=== PATIENT | female | born 1985 | race Caucasian/White ===

== ENCOUNTER 2020-11-13 11:32 | Emergency (ER) | payer MEDICAID, SELFPAY ==
[2020-11-13 11:38] VITALS: BP 140/81; PULSE 108; RESP 18; TEMP 36.6; O2SAT 100; BMI 21.4
--- NOTE | 2020-11-13 11:46 | ED.EXTPRO ---
HPI - Extremity Problem General Chief complaint: Extremity Injury, Upper Stated complaint: swollen lt hand Time Seen by Provider: 11/13/20 11:46 History of Present Illness HPI Narrative: Patient complains of left hand pain and swelling worsening over the past 2 days after puncturing it on a nail head 2 days ago, denies fever chills dizziness Related Data Allergies Allergy/AdvReac Type Severity Reaction Status Date / Time No Known Allergies Allergy Verified 11/13/20 12:51 Review of Systems Review of Systems: Positive for left hand swelling and pain and redness Negatives are no dizziness no confusion no fever no chills no nausea no vomiting no cough no shortness of breath no numbness no weakness [facility] Past Medical History Attestation statement: The following information was validated with the patient. [facility] Narrative: Patient has no current medical problems, does have a history of IV drug abuse in the past but is not using any drugs now Social History Social History Advance Directives: No Advance Directives Information Provided: No Physical Exam Vital Signs: Vital Signs: Last Vital Signs Temp 98.3 F 11/13/20 14:38 Pulse 79 11/13/20 14:38 Resp 16 11/13/20 14:38 BP 134/91 H 11/13/20 14:38 Pulse Ox 98 11/13/20 14:38 Body Mass Index 21.4 Patient is A&O x3, no acute distress, uncomfortable from pain in the left hand Normocephalic atraumatic Neck is supple Respiratory no distress Extremities the left hand the palm has a puncture wound at the center is is swollen across the mid palm with tenderness and induration and redness which spreads above the volar surface of the wrist and 2 the 2nd through 4th fingers, the patient cannot extend fingers 2 3 and 4, there is tenderness across the tendon sheath of 3rd and 4th fingers, fingers to 3 and 4 are red and swollen, neurovascular intact, no lymphangitis, wrist has full range of motion Neuro no focal deficit Course Course Course Narrative: Case discussed with attending physician Dr. prabhakar who agreed deep infection possibly abscess below aponeurosis, possible tenosynovitis We did not have a hand surgeon available at [facility] so I called [facility] and spoke to hand surgeon advised send patient as a transfer to the emergency room where they will evaluate and contact whoever is on-call for Hand Patient agreed to the plan and understands the urgency and understands she should not eat anything as she may be going to surgery and her mother will bring her over to [facility] now ATTEMPT TO PLACE AN IV IN RIGHT ARM WAS NOT SUCCESSFUL SPOKE WITH HAND DOCTOR ABOUT POSSIBILITY OF INSERTING INTO THE LEFT ARM AND SHE SAID PATIENT IS BEING TRANSFERRED TO [facility] LET THEM RE-EVALUATE AND HOLD OFF ON IV PLACEMENT SO NO IV WAS PLACED MDM - Extremity (Nontraumatic) Lab Data Result diagrams: 11/13/20 14:05 11/13/20 14:05 Labs: Lab Results 11/13/20 11/13/20 11/13/20 Range/Units 14:05 14:05 14:05 WBC 16.5 H (4.8-10.8) X10*3/uL RBC 5.04 (4.20-5.50) X10*6/uL Hgb 14.1 (12.0-16.0) g/dl Hct 42.1 (37-47) % MCV 83.5 (80-98) fL MCH 28.0 (27.0-33.0) pg MCHC 33.5 (31.0-35.0) g/dl RDW 13.7 (11.0-16.0) % Plt Count 383 (160-400) X10*3/uL MPV 9.7 (9.4-12.3) fL Immature Gran % (Auto) 0.4 (0.0-0.4) % Neut % (Auto) 82.7 H (45-73) % Lymph % (Auto) 10.0 L (20-40) % Rosebud % (Auto) 6.4 (2-11) % Eos % (Auto) 0.3 (0-4) % Baso % (Auto) 0.2 (0-2) % Lymph # (Auto) 1.6 (1.2-4.9) X10*3/uL Rosebud # (Auto) 1.1 (0.1-1.2) X10*3/uL Eos # (Auto) 0.1 (0.0-0.4) X10*3/uL Baso # (Auto) 0.0 (0.0-0.2) X10*3/uL Abs Immat Gran (auto) 0.06 H (0.00-0.03) X10*3/uL Absolute Neuts (auto) 13.6 H (2.0-8.3) X10*3/uL Absolute Nucleated RBC 0.000 (0.0-0.012) X10*3/uL Nucleated RBC % (auto) 0.0 (0.0-0.2) /100WBC Sodium 136 (135-145) mmol/L Potassium 3.8 (3.3-5.1) mmol/l Chloride 101 (96-108) mmol/L Carbon Dioxide 26 (22-29) mmol/L Anion Gap 13 (12-20) BUN 18 H (9-16) mg/dL Creatinine 0.96 (0.5-1.4) mg/dL Estim Creat Clear Calc 70.0 Estimated GFR > 60 Random Glucose 113 (60-115) mg/dL Lactic Acid (0.5-2.0) mmol/L Calcium 8.9 (8.4-10.2) mg/dL COVID-19 (RENATO) Negative (Negative) COVID-19 Clin Com See Note 11/13/20 Range/Units 14:05 WBC (4.8-10.8) X10*3/uL RBC (4.20-5.50) X10*6/uL Hgb (12.0-16.0) g/dl Hct (37-47) % MCV (80-98) fL MCH (27.0-33.0) pg MCHC (31.0-35.0) g/dl RDW (11.0-16.0) % Plt Count (160-400) X10*3/uL MPV (9.4-12.3) fL Immature Gran % (Auto) (0.0-0.4) % Neut % (Auto) (45-73) % Lymph % (Auto) (20-40) % Rosebud % (Auto) (2-11) % Eos % (Auto) (0-4) % Baso % (Auto) (0-2) % Lymph # (Auto) (1.2-4.9) X10*3/uL Rosebud # (Auto) (0.1-1.2) X10*3/uL Eos # (Auto) (0.0-0.4) X10*3/uL Baso # (Auto) (0.0-0.2) X10*3/uL Abs Immat Gran (auto) (0.00-0.03) X10*3/uL Absolute Neuts (auto) (2.0-8.3) X10*3/uL Absolute Nucleated RBC (0.0-0.012) X10*3/uL Nucleated RBC % (auto) (0.0-0.2) /100WBC Sodium (135-145) mmol/L Potassium (3.3-5.1) mmol/l Chloride (96-108) mmol/L Carbon Dioxide (22-29) mmol/L Anion Gap (12-20) BUN (9-16) mg/dL Creatinine (0.5-1.4) mg/dL Estim Creat Clear Calc Estimated GFR Random Glucose (60-115) mg/dL Lactic Acid 1.0 (0.5-2.0) mmol/L Calcium (8.4-10.2) mg/dL COVID-19 (RENATO) (Negative) COVID-19 Clin Com Discharge Plan Discharge Clinical Impression: Tenosynovitis of left hand Patient Disposition: [facility] Additional Instructions: YOUR ACCEPTED A TRANSFER TO [facility] EMERGENCY ROOM YOU MAY NEED SURGERY TODAY FOR YOUR LEFT HAND INFECTION SO DO NOT EAT ANY FOOD OR ANYTHING BY MOUTH THE TRANSFER WAS ACCEPTED BY HAND SURGEON YOU GOT A TETANUS SHOT HERE, NO ANTIBIOTICS WERE ADMINISTERED GO TO [facility] IMMEDIATELY WHEN YOU LEAVE THIS [facility]
--- NOTE | 2020-11-13 12:27 | PC.NURSE ---
IRA CORDOVA AND DR RIVERA AT BEDSIDE FOR EXAM
--- NOTE | 2020-11-13 12:51 | XR_ITS ---
EXAMINATION: XR HAND, LEFT CLINICAL INFORMATION: Infection. Possible foreign body COMPARISON: None TECHNIQUE: PA, lateral, and oblique views of the left hand. FINDINGS: The second through fifth fingers are partially flexed on all 3 views and partially overlapped lateral view. There is no visible fracture or dislocation or destructive process. No periostitis. There is mild soft tissue swelling suggested and dorsum of hand. No gas tracking in the soft tissues. No visible radiopaque soft tissue foreign body. XR/XR hand LT min 3V IMPRESSION: 1. Mild dorsal soft tissue swelling. No visible radiopaque soft tissue foreign body or gas tracking in soft tissue planes. 2. No visible fracture, dislocation, destructive process.
--- NOTE | 2020-11-13 13:56 | PC.NURSE ---
THIS RN UNSUCCESSFUL WITH IV INSERTION ATTEMPT X 1 RT VJ BA, RISK ASSESSOR AT BEDSIDE WITH US ALSO UNSUCCESSFUL, IRA CORDOVA UPDATED, IV TO BE HELD UNTIL FURTHER NOTICE,
[2020-11-13 14:15] LABS: Basophils Percent Auto 0.2 % (0-2); Eosinophils Absolute Auto 0.1 X10*3/uL (0.0-0.4); Eosinophils Percent Auto 0.3 % (0-4); Hematocrit 42.1 % (37-47); Hemoglobin 14.1 g/dl (12.0-16.0); Imm Gran Abs Auto 0.06 X10*3/uL (0.00-0.03); Imm Gran Pct Auto 0.4 % (0.0-0.4); Lymphocytes Absolute Auto 1.6 X10*3/uL (1.2-4.9); MANUAL DIFF FLAG NO; Mean Corpuscular HGB Conc 33.5 g/dl (31.0-35.0); Mean Corpuscular Volume 83.5 fL (80-98); Mean Platelet Volume 9.7 fL (9.4-12.3); Monocytes Absolute Auto 1.1 X10*3/uL (0.1-1.2); Monocytes Percent Auto 6.4 % (2-11); Neutrophils Absolute Auto 13.6 X10*3/uL (2.0-8.3); Neutrophils Percent Auto 82.7 % (45-73); Platelet Count 383 X10*3/uL (160-400); Red Blood Count 5.04 X10*6/uL (4.20-5.50); Red Cell Distribution Width 13.7 % (11.0-16.0); White Blood Count 16.5 X10*3/uL (4.8-10.8)
[2020-11-13] MEDS: Morphine Sulfate 4 MG/ML CARTRIDGE IM (14:16)
--- NOTE | 2020-11-13 14:19 | PC.NURSE ---
morphine given im as no iv access at preent time, antibiotics to be held for now, awaiting return call from [facility]
[2020-11-13 14:31] LABS: COVID-19 Test Negative (Negative); IDNOW Serial# 9DD0AD1C
[2020-11-13 14:34] LABS: Anion Gap 13 (12-20); Blood Urea Nitrogen 18 mg/dL (9-16); Calcium 8.9 mg/dL (8.4-10.2); Carbon Dioxide 26 mmol/L (22-29); Chloride 101 mmol/L (96-108); Estimated Glomerular Filt Rate > 60; Glucose Random 113 mg/dL (60-115); Potassium 3.8 mmol/l (3.3-5.1); Sodium 136 mmol/L (135-145)
[2020-11-13 14:38] VITALS: BP 134/91; PULSE 79; RESP 16; TEMP 36.8; O2SAT 98
== END 2020-11-13 14:50 | disposition short-term general hospital (02) ==
PROVIDERS: Physician Assistant Medical; Emergency Provider Emergency Medicine Emergency Medical Services; PCP Internal Medicine Geriatric Medicine
DX: M65.842 Other synovitis and tenosynovitis, left hand (principal); M79.642 Pain in left hand; Z20.828 Contact with and (suspected) exposure to other viral communicable diseases; F19.10 Other psychoactive substance abuse, uncomplicated
CPT/HCPCS: 36415; 73130; 80048; 83605; 85025; 87040; 87071; 87147; 87635; 87880; 90471; 90715; 96372; 99285; J2270

== ENCOUNTER 2021-04-03 19:21 | Emergency (ER) | payer OTHER, SELFPAY ==
[2021-04-03 20:33] VITALS: BP 144/87; PULSE 98; RESP 16; TEMP 35.9; O2SAT 99; BMI 22.3
--- NOTE | 2021-04-03 21:10 | ED.SKABFB ---
HPI - Skin/Abscess/Foreign Bdy General Chief complaint: Skin/Abscess/Foreign Body Stated complaint: Unable to move left hand Time Seen by Provider: 04/03/21 20:59 Source: patient Mode of arrival: ambulatory Limitations: no limitations History of Present Illness HPI narrative: Patient comes emergency room complaining of bedbugs versus scabies. Patient states that she has been treated for both, she is currently staying at a [facility] [address], states she was initially doing well and then 2 days ago she started having a rash again. Patient states is very itchy, she has been picking at her skin, states that through lesions she has is a small white worms. Patient denies fever and chills. Patient also complaining of numbness and tingling in the left wrist, states that it feels weaker than usual. Patient states she slept in a chair, when she woke up it was already numb and tingly and weak. MD complaint: rash Related Data Previous Rx's Medication Instructions Recorded permethrin [Lice Killing 60 ml TOPICAL ONCE #240 ml 04/03/21 (permethrin)] prednisone 20 mg PO DAILY #5 tab 04/03/21 Allergies Allergy/AdvReac Type Severity Reaction Status Date / Time No Known Allergies Allergy Verified 04/03/21 20:33 Review of Systems Review of Systems: Constitutional : No Weight loss, No Fever, No Chills, No Night Sweats, No Fatigue, No Malaise ENT/Mouth : No Hearing loss, No Ear Pain, No Nasal Congestion, No Sinus Pain, No Hoarseness, No sore throat, No Rhinorrhea, No Swallowing Difficulty Eyes: No Eye Pain, No Swelling, No Redness, No Foreign Body, No Discharge, No Vision Changes Cardiovascular : No Chest Pain, No SOB, No Dyspnea on Exertion, No Orthopnea, No Edema, No Palpitations Respiratory : No Cough, No Sputum, No Wheezing, No Smoke Exposure, No Dyspnea Gastrointestinal : No Nausea, No Vomiting, No Diarrhea, No Constipation, No abdominal Pain, No Hematochezia, No Melena Genitourinary : no irregular bleeding, No Dysuria, No Urinary Frequency, No Hematuria, No Urinary Incontinence, No Urgency, No Flank Pain, No Urinary Flow Changes, No Hesitancy Musculoskeletal : No joint pain, No Myalgias, No Joint Swelling Skin : Scabies like and bedbugs like rash in other body Neuro : Complaining of numbness in the left wrist, no pain, No Numbness, No Paresthesias, No Loss of Consciousness, No Dizziness, No Headache Psych : No Anxiety/Panic, No Depression, No SI/HI/AH/VH, No Social Issues, Heme/Lymph: No Bruising, No Bleeding,No Lymphadenopathy Endocrine : No Polyuria, No Polydipsia, No Temperature Intolerance PMFSH Past Medical History Medical History Scabies Social History Social History Advance Directives: No Advance Directives Information Provided: No Patient : No Physical Exam Vital Signs: Vital Signs: Last Vital Signs Temp 96.7 F L 04/03/21 20:33 Pulse 98 04/03/21 20:33 Resp 16 04/03/21 20:33 BP 144/87 H 04/03/21 20:33 Pulse Ox 99 04/03/21 20:33 Body Mass Index 22.3 Appearance: Alert. Oriented X3. No acute distress. Eyes: Pupils equal, round and reactive to light. ENT: Pharynx normal. Neck: Normal inspection. Neck supple. No lymph nodes noted. No crepitus CVS: Normal heart rate and rhythm. Pulses normal. Normal S1 and S2 Respiratory: No respiratory distress. Breath sounds normal. No Wheezing. No rales Abdomen: Soft and nontender. No rigidity. No distention. good BS x4 Skin: Skin warm and dry. It seems that patient has both bedbugs and scabies. Patient has multiple bedbug bites throughout the abdomen, patient also has scabies track jimenez in the dorsum of her hands. Extremities: No lower extremity edema. Patient is able to flex and extend all fingers of the left hand, including the wrist but seems to be weaker. Patient has no deficits at the elbow. On the left hand, patient has scarring tissue in the palm secondary to was surgery done in October 2020 due to tenosynovitis. Neuro: Oriented X 3. No motor deficit. No sensory deficit. Moving all extermities. No slurred speech. Course Course Course Narrative: I discussed the physical exam with the patient, it is likely the patient has doubled scabies and bedbugs. Patient mentioned that she was given prednisone for the 1st time that she was treated and it helped her a lot. Also, I discussed the physical exam of the left wrist, likely this is secondary to radial nerve compression. Patient will be given a brace for the wrist, and will follow up with her primary care physician. At this time, cellulitis/abscesses/tenosynovitis not suspected. Discharge Plan Discharge Clinical Impression: Scabies, Acute radial nerve palsy of left upper extremity Bedbug bite Qualifiers: Encounter type: initial encounter Qualified Code(s): W57.XXXA - Bitten or stung by nonvenomous insect and other nonvenomous arthropods, initial encounter Patient Disposition: Home, Self-Care Additional Instructions: Please follow-up with your primary care physician tomorrow. If you have any worsening or new symptoms, please return to the emergency room or call 911 Prescriptions: New Lice Killing (permethrin) 1 % liquid 60 ml topical ONCE Qty: 240 RF: 1 prednisone 20 mg tablet 20 mg PO DAILY Qty: 5 RF: 0
== END 2021-04-03 22:06 | disposition home or self-care (01) ==
PROVIDERS: Emergency Provider Emergency Medicine
DX: B86 Scabies (principal); G56.32 Lesion of radial nerve, left upper limb; Z79.899 Other long term (current) drug therapy
CPT/HCPCS: 99284

== ENCOUNTER 2021-05-05 17:09 | Emergency (ER) | payer OTHER, SELFPAY ==
[2021-05-05 17:22] VITALS: BP 124/81; PULSE 88; RESP 16; TEMP 36.9; O2SAT 100; BMI 22.1
--- NOTE | 2021-05-05 17:36 | ED.GENADULT ---
HPI - General Adult General Chief complaint: Altered Mental Status Stated complaint: ASLEEP IN CAR, FOUND BY PD Time Seen by Provider: 05/05/21 17:26 Source: patient and EMS Mode of arrival: EMS Limitations: no limitations History of Present Illness HPI narrative: Patient was found sleeping in her car by a bystander. EMS and PD were called on scene and were able to open the door and wake the patient up. Per report there was drug paraphernalia found in the car. The patient denies any substance use. On arrival she is alert and oriented. No physical complaints. Related Data Previous Rx's Medication Instructions Recorded permethrin [Lice Killing 60 ml TOPICAL ONCE #240 ml 04/03/21 (permethrin)] prednisone 20 mg PO DAILY #5 tab 04/03/21 Allergies Allergy/AdvReac Type Severity Reaction Status Date / Time No Known Allergies Allergy Verified 04/03/21 20:33 Review of Systems Review of Systems: Yes all other systems are reviewed and are negative Constitutional: Constitutional: Reports no additional constitutional complaints, Denies body ache(s), Denies chills, Denies fever(s), Denies headache(s) and Denies weakness Eyes: Eyes: Reports no additional eye complaints and Denies change in vision ENT: Reports system reviewed and no additional complaints, except as documented, Denies dizziness, Denies headache(s), Denies nasal congestion, Denies nasal discharge and Denies neck pain Cardiovascular: Cardiovascular: Reports no additional cardiovascular complaints, Denies chest pain, Denies leg edema and Denies dyspnea Respiratory: Respiratory: Reports no additional respiratory complaints, Denies cough and Denies dyspnea Gastrointestinal: Gastrointestinal: Reports no additional gastrointestinal complaints, Denies abdominal pain, Denies diarrhea, Denies nausea and Denies vomiting Genitourinary: Genitourinary: Reports no additional female genitourinary complaints and Denies urinary incontinence Musculoskeletal: Musculoskeletal: Reports no additional musculoskeletal complaints, Denies back pain, Denies arthralgias, Denies joint swelling, Denies neck pain, Denies numbness and Denies tingling Integumentary/Breasts: Skin/Breast: Reports system reviewed and no additional complaints, except as docu and Denies rash Neurologic: Reports system reviewed and no additional complaints, except as documented, Denies Abnormal speech present, Denies dizziness, Denies headache(s), Denies numbness, Denies tingling and Denies weakness PMFSH Past Medical History Attestation statement: The following information was validated with the patient. Source: old records reviewed and nursing notes reviewed Medical History Scabies Social History Social History Advance Directives: No Advance Directives Information Provided: No Physical Exam Vital Signs: Vital Signs: Last Vital Signs Temp 98.5 F 05/05/21 17:22 Pulse 88 05/05/21 17:22 Resp 16 05/05/21 17:22 BP 124/81 05/05/21 17:22 Pulse Ox 100 05/05/21 17:22 Body Mass Index 22.1 Const: General: cooperative, healthy appearing, comfortable and no acute distress Orientation/consciousness: patient oriented x3 Limitations: no limitations HENMT: Head: Yes normal to inspection Ears: hearing grossly normal bilaterally General nose exam: Normal external nose present Face and sinus: Yes normal facial exam Mouth: Normal oral and palatal mucosa present Throat: Yes posterior oropharynx normal Eyes: General: appearance normal, both eyes and all related structures Pupils: Equal, round and reactive pupils present Neck: Neck: Yes normal visual inspection Chest: Chest palpation & inspection: normal inspection of the chest Resp: Effort & Inspection: normal respiratory effort Auscultation: clear to auscultation bilaterally Cardio: Rate: regular rate Rhythm: regular rhythm Peripheral pulses: Peripheral pulses 2+ throughout GI: Inspection: Yes normal to inspection Palpation (GI): Soft to palpation and nontender Auscultation: normal bowel sounds Back/Spine/Pelvis: Thoracic/Lumbar Spine: thoracic and lumbar spine normal to inspection Skin: General skin exam: no rashes or lesions noted Neuro: General: patient oriented x3, no focal motor deficits and normal sensation to monofilament Cranial nerves: Yes Equal, round and reactive pupils present Cognition (Neuro): normal cognition Speech: No Abnormal speech present Gait exam (Neuro): Normal gait present Motor exam (neuro): 5/5 motor strength present throughout Extrem: General: Yes normal to inspection Course Course Course Narrative: 35-year-old female here after being found in the car sleeping. Found with drug paraphernalia although the patient denies using. On arrival she is alert and oriented. Hemodynamically stable. She has a sober ride here to pick her up. She has no physical complaints. No HI or SI. Not interested in any detox resources. Reviewed worrisome signs and symptoms of when to return to the emergency department. Comfortable discharge home. Discharge Plan Discharge Clinical Impression: Encounter for medical screening examination Patient Disposition: Home, Self-Care Instructions: Normal Exam (ED) Prescriptions: No Action Lice Killing (permethrin) 1 % liquid 60 ml topical ONCE Qty: 240 RF: 1 prednisone 20 mg tablet 20 mg PO DAILY Qty: 5 RF: 0 Interventions: ED Discharge Assessment Last Done: 05/05/21 17:44 Discharge Date/Time: 05/05/21 17:44
== END 2021-05-05 17:44 | disposition home or self-care (01) ==
LOC: HO.ED 17:40
PROVIDERS: Emergency Provider Internal Medicine; PCP Internal Medicine Geriatric Medicine
DX: Z03.6 Encounter for observation for suspected toxic effect from ingested substance ruled out (principal)
CPT/HCPCS: 99282; 99283

== ENCOUNTER 2022-06-09 23:12 | Emergency (ER) | payer OTHER, SELFPAY ==
[2022-06-09 23:46] VITALS: BP 109/57; PULSE 86; RESP 18; TEMP 36.3; O2SAT 97; BMI 24.0
--- NOTE | 2022-06-10 01:26 | ED_ITS ---
HPI - Skin/Abscess/Foreign Bdy General Chief complaint: Skin/Abscess/Foreign Body Stated complaint: infection on right hand Source: patient Mode of arrival: ambulatory Limitations: no limitations History of Present Illness HPI narrative: 36-year-old female presents with worsening cellulitis and abscess to the left hand. She was treated at another facility and was given Bactrim. Patient states that she has been on Bactrim for a few days but it is not working. She feels the redness has increased, and the wound is open and actively draining. She does not report any fevers, chills, difficulty moving the extremity. MD complaint: abscess/boil Onset (ago): week(s) (2) Tetanus up to date: yes Location: R hand Severity: moderate Severity scale (1-10): 5 Quality: burning and aching Pain Consistency: constant Relieving factors: none Exacerbating factors: palpation and movement Context: recent antibiotic Associated symptoms: denies other symptoms Treatments prior to arrival: bandages, attempted to drain pus at home and antibiotic Related Data Previous Rx's Medication Instructions Recorded permethrin 1 % topical liquid 60 ml topical ONCE #240 mL 04/03/21 (Lice Killing (permethrin)) prednisone 20 mg tablet 20 mg PO DAILY #5 tabs 04/03/21 amoxicillin 875 mg-potassium 1 tab PO Q12H 10 days #20 tabs 06/10/22 clavulanate 125 mg tablet doxycycline monohydrate 100 mg 100 mg PO BID 10 days #20 caps 06/10/22 capsule Allergies Allergy/AdvReac Type Severity Reaction Status Date / Time No Known Allergies Allergy Verified 12/14/21 15:29 Review of Systems Review of Systems: Constitutional: No Fever, No Chills ENT/Mouth: No Ear Pain, No Hoarseness, No sore throat Eyes: No Eye Pain, No Swelling, No Redness, No Foreign Body Cardiovascular: No Chest Pain, No SOB Respiratory: No Cough, No Dyspnea Gastrointestinal: No Nausea, No Vomiting, No Diarrhea, No abdominal Pain Genitourinary: No Dysuria, No Hematuria Musculoskeletal: positive right hand pain, No Myalgias, No Joint Swelling Skin: Cellulitis and draining abscess to right hand, No Skin lacerations, No rash Neuro: No Weakness, No Numbness, No Paresthesias, No Loss of Consciousness, No Dizziness, No Headache Psych: No Anxiety/Panic, No Depression Heme/Lymph: no easy bruising, no Lymphadenopathy Endocrine: No Polyuria, No Polydipsia Yes all other systems are reviewed and are negative [facility] Past Medical History Attestation statement: The following information was validated with the patient. Source: old records reviewed Medical History Scabies Social History Social History Advance Directives: No Physical Exam Vital Signs: Vital Signs: Last Vital Signs Temp 97.9 F 06/10/22 01:29 Pulse 89 06/10/22 01:29 Resp 16 06/10/22 01:29 BP 112/69 06/10/22 01:29 Pulse Ox 99 06/10/22 01:29 O2 Del Method 06/10/22 01:29 BMI result Body Mass Index 24.0 Appearance: Alert. Oriented X3. No acute distress. Eyes: Pupils equal, round and reactive to light. ENT: Pharynx normal. Neck: Normal inspection. Neck supple. CVS: Normal heart rate and rhythm. Pulses normal. Respiratory: No respiratory distress. Breath sounds normal. Abdomen: Soft and nontender. Skin: Multiple scabs to arms and face, 2 cm in diameter abscess with erythema and cellulitis, draining pustule noted to the center. Full range of motion and strength 5/5 to all digits. No indication of tendon injury. The no cervical or brachial lymphadenopathy. Extremities: Brisk capillary refill and equal pulses to all extremities. Neuro: No motor deficit. No sensory deficit. Cranial nerves 2-12 intact. Course Course Course Narrative: 36-year-old female presents with worsening pain and increase of drainage to the abscess on her right hand. Patient was given Bactrim, she has been taking it but feels that this medication isn't working for her. She says the cellulitis on the hand has increased as well as the drainage. She has full range of motion, strength 5/5 to all digits, no indication of tendon injury. Full range of motion to the upper extremity. No cervical or axillary or brachial lymphadenopathy noted. Patient is afebrile, appears nontoxic. At this time will discontinue the Bactrim and start doxycycline and Augmentin. Patient does understand if signs and symptoms of infection worsened that she must return to the emergency department for immediate evaluation. Patient verbalized understanding of plan of care discharge home. Verbalized understanding of signs symptoms indicating need for emergent intervention. MDM - Skin/Abscess/Foreign Bdy Differential Diagnosis Differential diagnosis: Likely abscess of skin or subcutaneous tissue and cellulitis Medical Records Attestation: I reviewed the patient's medical records. Discharge Plan Discharge Clinical Impression: Cellulitis, Abscess of skin or subcutaneous tissue Patient Disposition: Home, Self-Care Instructions: Cellulitis (ED), Abscess (ED) Additional Instructions: Your evaluated for cellulitis and draining abscess to the right hand. Please stop taking Bactrim, take Augmentin 875 mg twice a day for the next 10 days and doxycycline 100 mg twice a day for the next 10 days. Doxycycline has a significant interaction with sunshine. Please wear hat, long sleeves and sunscreen to prevent photosensitive reaction from occurring. You can get a blister-like rash to your skin with sunshine exposure. Keep wound clean and dry. Apply warm compress to encourage drainage. If you notice any worsening signs of infection please return for evaluation. Return for any new, concerning, or worsening symptoms. Prescriptions: New doxycycline monohydrate 100 mg capsule 100 mg PO BID 10 Days Qty: 20 0RF amoxicillin-pot clavulanate 875-125 mg tablet 1 tab PO Q12H 10 Days Qty: 20 0RF No Action Lice Killing (permethrin) 1 % liquid 60 ml topical ONCE Qty: 240 1RF prednisone 20 mg tablet 20 mg PO DAILY Qty: 5 0RF Interventions: ED Discharge Assessment Last Done: 06/10/22 01:53 Discharge Date/Time: 06/10/22 03:20
[2022-06-10 01:29] VITALS: BP 112/69; PULSE 89; RESP 16; TEMP 36.6; O2SAT 99
[2022-06-10] MEDS: Amoxicillin/Potassium Clav 875 MG TABLET PO (01:34)
== END 2022-06-10 03:20 | disposition home or self-care (01) ==
PROVIDERS: Emergency Provider Emergency Medicine
DX: L03.114 Cellulitis of left upper limb (principal); L02.511 Cutaneous abscess of right hand
CPT/HCPCS: 99283; 99284

== ENCOUNTER 2022-10-29 17:24 | Emergency (ER) | payer OTHER, SELFPAY | END 2022-10-29 19:05 | disposition left against medical advice (07) | PROVIDERS: Emergency Provider Emergency Medicine; PCP Internal Medicine Geriatric Medicine | DX: M79.642 Pain in left hand (principal) ==

== ENCOUNTER 2023-08-22 02:20 | Inpatient (IN) | payer OTHER, SELFPAY ==
[2023-08-22] VITALS (16 sets, daily range): BP systolic 83–128; BP diastolic 45–84; PULSE 75–113; RESP 12–24; TEMP 36.3–38.2; O2SAT 92–99; BMI 26.3; BMI 28.6
--- NOTE | ~2023-08-22 | CT_ITS ---
EXAMINATION: CT LUMBAR SPINE CLINICAL INFORMATION: L4-L5 pain, fever, IVDA COMPARISON: None available. TECHNIQUE: 85 mL Omnipaque 350 intravenous contrast was utilized. Multidetector helical imaging was performed through the lumbar spine This CT examination was performed using dose optimization techniques as appropriate, variously including the following: *Automated exposure control *Adjustment of mA and/or kV according to patient size (this includes techniques or standardized protocols for targeted exams where dose is matched to indication/reason for exam; i.e. extremities or head) *Use of iterative reconstruction technique DLP: 451 mGy-cm FINDINGS: There is anatomic alignment of the lumbar vertebral bodies and posterior elements. Vertebral body heights and intervertebral disc spaces are maintained. No acute fracture is seen. No erosive changes to suggest osteomyelitis. No paravertebral soft tissue abnormality is seen. CT/CT lumbar spine w IV con IMPRESSION: No acute findings identified. If clinically warranted, MRI would provide better assessment for potential osteomyelitis.
--- NOTE | ~2023-08-22 | MR_ITS ---
EXAMINATION: MR LUMBAR SPINE WITHOUT AND WITH CONTRAST CLINICAL INFORMATION: Question spinal epidural abscess. COMPARISON: None TECHNIQUE: MRI of the lumbar spine was obtained using routine sequences without and with intravenous contrast. Gadavist was intravenously administered. FINDINGS: The lumbar vertebral bodies maintain normal heights and alignment. No disc height loss is seen. There is no bone marrow edema. No destructive changes are noted. The distal spinal cord appears normal. The conus medullaris terminates normally at L1. There is no abnormal enhancement within the bone marrow. No abnormal cauda equina nerve root enhancement is seen. There is no disc herniation. No spinal canal or neural foraminal stenosis is seen. No nerve root compression is seen. There is diffuse edema within the subcutaneous fat of the lower back with mild ill-defined paraspinal muscle edema also seen centered about the L4-L5 level. There is asymmetric enhancement about the right-sided L4-L5 facet joint with mildly increased fluid also seen within the L4-L5 facet joint space. The psoas musculature appears symmetric. The imaged intra-abdominal contents of intrapelvic contents are unremarkable. MR/MR lumbar spine wo/w con IMPRESSION: 1. No evidence of epidural abscess. No evidence of discitis osteomyelitis. No spinal canal or neural foraminal stenosis. No nerve root compression. 2. Diffuse edema within the subcutaneous fat of the lower back and mild ill-defined paraspinal muscle edema centered about the L4-L5 level. Mild increased fluid in the right-sided L4-L5 facet joint with edema and enhancement seen in this region. Imaging could be degenerative or posttraumatic changes. Septic facet arthritis would have a similar imaging appearance.
--- NOTE | ~2023-08-22 | XR_ITS ---
EXAMINATION: XR CHEST CLINICAL INFORMATION: Fever COMPARISON: None available. TECHNIQUE: Frontal view of the chest was obtained. FINDINGS: There is mild elevation of the right hemidiaphragm. There is hazy opacity in the right lung base. No focal left lung consolidation. No evidence of pneumothorax or significant pleural effusion. The cardiomediastinal contour is unremarkable. No acute osseous findings are seen. XR/XR chest 1V IMPRESSION: Hazy right basilar opacity concerning for developing consolidation in the setting of fever. Radiographic followup after treatment/resolution of symptoms is recommended.
[2023-08-22 03:08] LABS: COVID-19 Test Negative (Negative); IDNOW Serial# BCCEAD1C
--- NOTE | 2023-08-22 03:30 | PC.NURSE ---
Pt AOx4, pt reports 8/10 constant lower back/neck pain, an left hip pain. Reports fevers at home, reports not being able to get out of bed x5 days. Denies vomiting/diarrhea/cough/sick contact. Multiple healing scabs noted all over body, pt reports recent IV drug use.
[2023-08-22] MEDS: HYDROmorphone HCl 1 MG/ML SYRINGE IVPUSH (03:37)
[2023-08-22] MEDS: Ketorolac Tromethamine 15 MG/ML VIAL IVPUSH (03:39)
[2023-08-22] MEDS: 0.9 % Sodium Chloride 1,000 ML 999 ML IV ×3 (03:43→09:15)
[2023-08-22] MEDS: Acetaminophen 325 MG TABLET 650 MG PO ×2 (03:45→16:50)
--- NOTE | 2023-08-22 03:54 | PC.NURSE ---
Pt difficult stick, unsuccessful attempts at blood draw/IV insertions. Ultrasound guided IJ insertion unsuccessful by provider. IV inserted, lab work still pending collection.
--- NOTE | 2023-08-22 04:06 | MHC.EDTECH ---
This tech obtained the first set of blood cultures and labs, patient is an extremely difficult stick,phlebotomy is at bedside to attempt to get second set of blood cultures.
[2023-08-22 04:10] LABS: MANUAL DIFF FLAG NO
[2023-08-22] MEDS: cefTRIAXone sodium 2 GM in 0.9 % Sodium Chloride 50 ML IV (04:10)
--- NOTE | 2023-08-22 04:10 | PC.NURSE ---
2nd set of cultures obtained, ABX started.
[2023-08-22 04:11] LABS: Basophils Percent Auto 0.3 % (0-2); Eosinophils Percent Auto 0.2 % (0-4); Hematocrit 34.6 % (37.0-47.0); Hemoglobin 11.7 g/dl (12.0-16.0); Imm Gran Pct Auto 1.6 % (0.0-0.4); Lymphocytes Absolute Auto 0.5 X10*3/uL (1.2-4.9); Lymphocytes Percent Auto 8.7 % (20-40); Mean Corpuscular HGB Conc 33.8 g/dl (31.0-35.0); Mean Corpuscular Hemoglobin 28.3 pg (27.0-33.0); Mean Corpuscular Volume 83.6 fL (80.0-98.0); Mean Platelet Volume 10.5 fL (9.4-12.3); Monocytes Absolute Auto 0.6 X10*3/uL (0.1-1.2); Monocytes Percent Auto 9.3 % (2-11); Neutrophils Percent Auto 79.9 % (45-73); Platelet Count 167 X10*3/uL (160-400); Red Blood Count 4.14 X10*6/uL (4.20-5.50); Red Cell Distribution Width 12.6 % (11.0-16.0); White Blood Count 6.2 X10*3/uL (4.8-10.8)
--- NOTE | 2023-08-22 04:15 | PC.NURSE ---
IV line placed by provided infiltrated.
[2023-08-22 04:20] LABS: Lactic Acid 1.4 mmol/L (0.5-2.0)
[2023-08-22 04:23] LABS: IDNOW Serial# 08D9AD1C; Influenza A Negative (Negative); Influenza B2 Negative (Negative)
[2023-08-22 04:32] LABS: Alanine Aminotransferase 18 U/L (0-31); Albumin Level 2.8 g/dL (3.5-5.0); Alkaline Phosphatase 177 U/L (39-117); Anion Gap 16 (12-20); Aspartate Amino Transferase 25 U/L (5-31); Bilirubin Direct 0.4 mg/dL (0.0-0.5); Bilirubin Total 0.7 mg/dL (0.0-1.0); Blood Urea Nitrogen 14 mg/dL (9-16); C Reactive Protein 41.73 mg/dL (< or = 0.50); Calcium 8.5 mg/dL (8.4-10.2); Carbon Dioxide 24 mmol/L (22-29); Chloride 95 mmol/L (96-108); Creatinine Clr Calc Pharmacy 101.7; Estimated Glomerular Filt Rate > 60; Glucose Random 116 mg/dL (60-115); Magnesium 2.3 mg/dL (1.6-2.6); Potassium 3.7 mmol/L (3.3-5.1); Sodium 131 mmol/L (135-145)
[2023-08-22 04:34] LABS: HCG Quantitative < 2 mIU/mL
--- NOTE | 2023-08-22 04:42 | PC.NURSE ---
New IV line placed, meds continued per MAR.
[2023-08-22 04:46] LABS: Erythrocyte Sedimentation Rate 78 MM/HR (0-20)
--- OUTSIDE RECORDS SUMMARY | 2023-08-22 04:48 | XMS_ITS | Continuity of Care Document ---
Author Name Unknown Organization [facility] Address [address] [place] [address]- Care Team Providers Care Railway Signal Technician Name Role Phone Abhi CALDERON, Ashlyn Monroy Primary Care Physician [facility] [id number] Date(s): 12/12/19 - 12/22/[address] [address]- [facility] Attending Physician: Lalo Rai Admitting Physician: Lalo Rai Referring Physician: Lalo Rai Allergies, Adverse Reactions, Alerts Substance Reaction Severity Status NKA Active Immunizations Given and Recorded Vaccine Date Status Refusal Reason tetanus/diphtheria/pertussis, acel(Tdap) 03/04/08 Recorded Not Given Vaccine Date Status Refusal Reason tetanus/diphtheria/pertussis, acel(Tdap) 1 11/09/17 Not Given Patient Refuses 1Result Note: Pt reports received her tetanus from a prior injury and does not need an additonal oneat this time. Pt educated on its use and will follow up with her PCP Problem List Condition Effective Dates Status Health Status Inform ant Anxiety disorder(Confirmed) Active Bulimia(Confirmed) Active Elevated liver enzymes(Confirmed) Active Exercise-induced asthma(Confirmed) Active Fatigue(Confirmed) Active Generalized anxiety disorder with panic attacks(Confirmed) Active IBS (irritable bowel syndrome)(Confirmed) Active Migraines(Confirmed) Active Oligoovulation(Confirmed) Active Major depressive disorder, r ecurrent, moderate(Confirmed) Active Thyroid nodule(Confirmed) Active Thyroid nodule(Confirmed) Active Social History Social History Type Response Smoking Status Current every day sm oker; Type: Cigarettes; Tobacco use times per day: 1/2 PPD; Started at age: 16; entered on: 03/16/18 Sex
--- OUTSIDE RECORDS SUMMARY | 2023-08-22 04:48 | XMS_ITS | Continuity of Care Document ---
Author Name Unknown Organization [facility] [place] Address [address] [place] [address]- Care Team Providers Care Pulverizer Feeder Name Role Phone Abhi CALDERON, Ashlyn Monroy Primary Care Physician Encounter [facility] Date(s): 03/02/21 - 04/01/21 [facility] [place] [address] [place] [address]- Allergies, Adverse Reactions, Alerts Substance Reaction Severity [...] and will follow up with her PCP Medications Compression Stockings See Instructions, # 1 pack/packet, Maintenance, surgical, knee length 40-50 mm Hg, 04/05/20 7:12:00EDT, Supply Start Date: 04/05/20 Status: Ordered Compression Stockings See Instructions, # 2 each, Refills 1, Tot. Refills 1, Maintenance, surgical, knee length 20-30 mm Hg, 05/06/20 15:08:00 EDT, Supply Start Date: 05/06/20 Status: Ordered Problem List Condition Effective Dates Status Health Status Inform ant Anxiety reaction(Confirmed) Active Anxiety disorder(Confirmed) Active Bed bug bite(Confirmed) Active Bulimia(Confirmed) Active Elevated liver enzymes(Confirmed) Active Exercise-induced asthma(Confirmed) Active Fatigue(Confirmed) Active Generalized anxiety disorder with panic attacks(Confirmed) Active Scabies(Confirmed) Active IBS (irritable bowel syndrome)(Confirmed) Active Migraines(Confirmed) Active Oligoovulation(Confirmed) Active 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
--- OUTSIDE RECORDS SUMMARY | 2023-08-22 04:48 | XMS_ITS | Continuity of Care Document ---
Author Name Unknown Organization [facility] Address [address] [address]- Care Team Providers Care Flooring Professional Name Role Phone Abhi CALDERON, Ashlyn Monroy Primary Care Physician Encounter [facility] NBR [id number] Date(s): 09/13/19 - 01/17/20 [facility] [address] [place] [address]- [facility] Attending Physician: Mallory Dumont CNM Admitting Physician: Mallory Dumont CNM Referring Physician: Ashlyn Moe MD Allergies, Adverse Reactions, Alerts Substance Reaction Severity [...] ant Anxiety reaction(Confirmed) Active Anxiety disorder(Confirmed) Active Bulimia(Confirmed) Active Elevated liver [...]
--- OUTSIDE RECORDS SUMMARY | 2023-08-22 04:48 | XMS_ITS | Continuity of Care Document ---
Author Name Unknown Organization [facility] [place] Address [address] [place] [address]- Care Team Providers Care Websphere Commerce Developer Name Role Phone Abhi CALDERON, Ashlyn Monroy Primary Care Physician [id number] Date(s): 11/17/20 - 12/17/20 [facility] [place] [address] [place] [address]- Allergies, Adverse Reactions, Alerts Substance Reaction Severity [...]
--- OUTSIDE RECORDS SUMMARY | 2023-08-22 04:48 | XMS_ITS | Continuity of Care Document ---
Author Name Unknown Organization [facility] Address [address] [place] [address]- Care Team Providers Care Dot Compliance Coordinator Name Role Phone Abhi CALDERON, Ashlyn Monroy Primary Care Physician [phone] En[place] [facility] Date(s): 05/06/20 - 05/13/[address] [facility] [address] [place] [address]- [facility] Attending Physician: Danny Garcia MD Admitting Physician: Danny Garcia MD Referring Physician: Kimi Narayan NP Allergies, Adverse Reactions, Alerts Substance Reaction Severity [...] nodule(Confirmed) Active Thyroid nodule(Confirmed) Active Trichotillomania(Confirmed) Active Vital Signs Most recent to oldest [Reference Range]: 1 Height 163 cm (05/06/20 2:46 PM) Weight 75 kg (05/06/20 2:46 PM) Body Mass Index [18.5-24.99] 28.23 *H* (05/06/20 2:46 PM) Blood Pressure [90-138/55-84 mm Hg] 116/ 60mm Hg (05/06/20 2:46 PM) Blood pressure sites Arm, right (05/06/20 2:46 PM) Weight Obtained Via Patient/family state d (05/06/20 2:46 PM) Social History Social History Type Response Smoking Status Current every day kosta castellon; Type: Cigarettes; Tobacco use times per day: 1/2 PPD; Started at age: 16; entered on: 03/16/18 Sex
--- OUTSIDE RECORDS SUMMARY | 2023-08-22 04:48 | XMS_ITS | Continuity of Care Document ---
Author Name Unknown Organization [facility] [place] Address [address] [place] [address]- Care Team Providers Care Lacquer Sizer Name Role Phone Ashlyn Moe MD Primary Care Physician [id number] Date(s): 11/19/20 - 12/24/20 [facility] [place] [address] [place] [address]- Attending Physician: Ashlyn Moe MD Admitting Physician: Ashlyn Moe MD Allergies, Adverse Reactions, [...]
--- OUTSIDE RECORDS SUMMARY | 2023-08-22 04:48 | XMS_ITS | Continuity of Care Document ---
Author Name Unknown Organization [facility] [place] Address [address] [place] [address]- Care Team Providers Care Shop Worker Name Role Phone Abhi CALDERON, Ashlyn Monroy Primary Care Physician [phone] Encounter [facility] Date(s): 05/18/21 - 06/17/21 [facility] [place] [address] [place] [address]- Allergies, Adverse Reactions, Alerts Substance Reaction Severity [...] EDT, Supply Start Date: 05/06/20 Status: Ordered ivermectin 3 mg oral tablet See Instructions, 5 tablet By Mouth Daily on days 1, 2, 8, 9 and 15, # 25 tablet, 0 Refills, Maintenance, 05/07/21 10:52:00 EDT, [id number], Partial fill upon patient request if the prescription is for a schedule II opioid drug., 163... Start Date: 05/07/21 Status: Ordered Problem List Condition Effective Dates [...]
--- OUTSIDE RECORDS SUMMARY | 2023-08-22 04:48 | XMS_ITS | Continuity of Care Document ---
Author Name Unknown Organization [facility] Address [address] [place] [address]- Care Team Providers Care Radiator Repairer Name Role Phone Ashlyn Moe MD Primary Care Physician [place] [facility] Date(s): 03/20/21 - 04/19/[address] [address] Attending Physician: Ashlyn Moe MD Admitting Physician: Ashlyn Moe MD Referring Physician: Ashlyn Moe MD Allergies, Adverse [...]
--- OUTSIDE RECORDS SUMMARY | 2023-08-22 04:48 | XMS_ITS | Continuity of Care Document ---
Author Name Unknown Organization [facility] [place] Address [address] [place] [address]- Care Team Providers Care Chronic Manager Name Role Phone Abhi CALDERON, Ashlyn Monroy Primary Care Physician En[facility] NBR [id number] Date(s): 04/18/20 - 05/21/20 [facility] [address] [address]- [facility] Attending Physician: Kimi Narayan NP Admitting Physician: Kimi Narayan NP Allergies, Adverse Reactions, [...]
--- OUTSIDE RECORDS SUMMARY | 2023-08-22 04:48 | XMS_ITS | Continuity of Care Document ---
Author Name Unknown Organization [facility] Address [address] [place] [address]- Care Team Providers Care Area Field Worker Name Role Phone Abhi CALDERON, Ashlyn Monroy Primary Care Physician [phone] En[facility] Date(s): 02/25/21 - 04/23/21 [facility] [address] [place] [address] Attending Physician: Maxwell Diaz MD Admitting Physician: Maxwell Diaz MD Referring Physician: Ashlyn Moe MD Allergies, [...]
--- OUTSIDE RECORDS SUMMARY | 2023-08-22 04:48 | XMS_ITS | Continuity of Care Document ---
Author Name Unknown Organization [facility] [place] Address [address] [place] [address]- Care Team Providers Care Painter Aircraft Name Role Phone Abhi CALDERON, Ashlyn Monroy Primary Care Physician Encounter [facility] NBR [id number] Date(s): 04/29/20 - 05/29/20 [facility] [address] [address]- [facility] Attending Physician: Kimi Narayan NP Admitting Physician: iKmi Narayan NP Allergies, Adverse Reactions, Alerts Substance [...]
--- OUTSIDE RECORDS SUMMARY | 2023-08-22 04:48 | XMS_ITS | Continuity of Care Document ---
Author Name Unknown Organization [facility] ter Address [address] [place] [address]- Care Team Providers Care Clerk Television Production Name Role Phone Ashlyn Moe MD Primary Care Physician Encounter [facility] Date(s): 03/03/21 - 04/18/[address] [address] Attending Physician: Ashlyn Moe MD Admitting Physician: [...]
--- OUTSIDE RECORDS SUMMARY | 2023-08-22 04:48 | XMS_ITS | Continuity of Care Document ---
Author Name Unknown Organization [facility] [place] Address [address] [place] [address]- Care Team Providers Care Woodworker Helper Name Role Phone Abhi CALDERON, Ashlyn Monroy Primary Care Physician [phone] Encounter [facility] Date(s): 12/02/20 - 01/01/21 [facility] [place] [address] [place] [address]- Allergies, Adverse Reactions, Alerts Substance Reaction Severity [...]
--- OUTSIDE RECORDS SUMMARY | 2023-08-22 04:48 | XMS_ITS | Continuity of Care Document ---
Author Name Unknown Organization [facility] [place] Address [address] [place] [address]- Care Team Providers Care Manager Risk Name Role Phone Abhi CALDERON, Ashlyn Monroy Primary Care Physician [phone] Encounter [facility] NBR [id number] Date(s): 04/21/20 - 05/30/20 [facility] [address] [address]- [facility] Attending Physician: Kimi Narayan NP Admitting Physician: [...]
--- OUTSIDE RECORDS SUMMARY | 2023-08-22 04:49 | XMS_ITS | Continuity of Care Document ---
Author Name Unknown Organization [facility] Address [address] [place] [address]- Care Team Providers Care Sack Keeper Name Role Phone Abhi CALDERON, Ashlyn Monroy Primary Care Physician [phone] Encounter [place] Date(s): 05/12/21 - 06/11/21 [facility] [address] [place] [address] Allergies, Adverse Reactions, Alerts Substance Reaction Severity [...] tablet, 0 Refills, Maintenance, 05/07/21 10:52:00 EDT, [facility] #[id number], Partial fill upon patient request if the [...]
--- OUTSIDE RECORDS SUMMARY | 2023-08-22 04:49 | XMS_ITS | Continuity of Care Document ---
Author Name Unknown Organization [facility] [place] Address [address] [place] [address]- Care Team Providers Care Community Recreation Coordinator Name Role Phone Abhi CALDERON, Ashlyn Monroy Primary Care Physician [phone] Encounter [facility] Date(s): 02/25/21 - 03/27/21 [facility] [place] [address] [place] [address]- Attending Physician: Lalo Rai Admitting Physician: Lalo Rai Referring Physician: AdmtrLalo Allergies, Adverse Reactions, Alerts Substance Reaction Severity [...] nodule(Confirmed) Active Thyroid nodule(Confirmed) Active Trichotillomania(Confirmed) Active Procedures Procedure Date Related Diagnosis Body Site Status Irrigation/debridement L [place]aacs d deep space infection 11/14/20 Completed Social History Social History Type Response Smoking Status Current every day kosta castellon; Type: Cigarettes; Tobacco use times per day: 1/2 PPD; Started at age: 16; entered on: 03/16/18 Sex
--- OUTSIDE RECORDS SUMMARY | 2023-08-22 04:49 | XMS_ITS | Continuity of Care Document ---
Author Name Unknown Organization [facility] ter Address [address] [place] [address]- Care Team Providers Care Brand Communications Manager Name Role Phone Ashlyn Moe MD Primary Care Physician En[place] [facility] Date(s): 03/19/21 - 04/19/[address] [address] Attending Physician: Ashlyn Moe MD Admitting [...]
--- OUTSIDE RECORDS SUMMARY | 2023-08-22 04:49 | XMS_ITS | Continuity of Care Document ---
Author Name Unknown Organization [facility] Address [address] [place] [address]- Care Team Providers Care Call Center Support Representative Name Role Phone Ashlyn Moe MD Primary Care Physician Encounter [facility] NBR [id number] Date(s): 09/24/19 - 11/28/19 [facility] [address] [address]- [facility] Attending Physician: Chilango Hurst MD Referring Physician: Ashlyn Moe MD Allergies, [...]
--- OUTSIDE RECORDS SUMMARY | 2023-08-22 04:49 | XMS_ITS | Continuity of Care Document ---
Author Name Unknown Organization [facility] Address [address] [place] [address]- Care Team Providers Care Mortar Mixer Operator Name Role Phone Abhi CALDERON, Ashlyn Monroy Primary Care Physician [place] [facility] Date(s): 12/03/20 - 12/10/20 [facility] [address] [place] [address]- Attending Physician: Jose Huitron Allergies, Adverse Reactions, Alerts Substance Reaction Severity [...] oldest [Reference Range]: 1 Height 163 cm (12/03/20 9:14 AM) Social History Social History Type Response Smoking Status Current every day kosta castellon; Type: Cigarettes; Tobacco use times per day: 1/2 PPD; Started at age: 16; entered on: 03/16/18 Sex
--- OUTSIDE RECORDS SUMMARY | 2023-08-22 04:49 | XMS_ITS | Continuity of Care Document ---
Author Name Unknown Organization [facility] Address [address] [place] [address]- Care Team Providers Care Training Technician Name Role Phone Ashlyn Moe MD Primary Care Physician [id number] Date(s[facility] 09/24/19 - 11/30/19 [facility] [address] [address]- [facility] Attending Physician: Chilango Hurst MD Referring Physician: [...]
--- OUTSIDE RECORDS SUMMARY | 2023-08-22 04:49 | XMS_ITS | Continuity of Care Document ---
Author Name Unknown Organization [facility] ter Address [address] [place] [address]- Care Team Providers Care Top Lift Compresser Name Role Phone Abhi CALDERON, Ashlyn Monroy Primary Care Physician [phone] [place] [facility] Date(s): 04/05/20 - 04/05/[address] [address]- [facility] Encounter Diagnosis Ankle edema, bilateral(Final) - 04/05/20 Cellulitis of right lower extremity(Final) - 04/05/20 Discharge Disposition: A-D/C Home Attending Physician: Kip Michelle DO Admitting Physician: Kip Michelle DO Referring Physician: Not on Staff, Referring MD Allergies, Adverse Reactions, Alerts Substance Reaction [...] will follow up with her PCP Medications cephalexin monohydrate 500 mg oral capsule 1 capsule = 500 mg, By Mouth, 4 times a day, for 7 days, # 28 capsule, 0 Refills, Acute 04/12/20 7:12:00 EDT, 04/05/20 7:12:00 EDT, Capsule Start Date: 04/05/20 Stop Date: 04/12/20 Status: Ordered Compression Stockings See Instructions, # 1 pack/packet, Maintenance, surgical, knee length 40-50 mm Hg, 05/16/20 7:12:00EDT, Supply Start Date: 04/05/20 Status: Ordered Problem List Condition Effective Dates [...] Most recent to oldest [Reference Range]: 1 2 3 Oxygen Saturation [94-100 %] 98 % (04/05/20 8:09 AM) 99 % (04/05/20 6:12 AM) 100 % (04/05/20 1:37 AM) Pulse Rate [55-90 bpm] 89 bpm (04/05/20 8:09 AM) 97 bpm *H* (04/05/20 6:12 AM) 100 bpm *H* (04/05/20 1:37 AM) Blood Pressure [90-138/55-84 mm Hg] 128/63mm Hg (04/05/20 6:12 AM) 132/84mm Hg (04/05/20 1:37 AM) Respiratory Rate [16-30 br/min] 18 br/min (04/05/20 8:09 AM) 18 br/min (04/05/20 6:12 AM) 16 br/min (04/05/20 1:37 AM) Temperature [96.8-100.4 DegF] 98.1 DegF (04/05/20 6:12 AM) 98.9 DegF (04/05/20 1:37 AM) Mode of Delivery (Oxygen) Room air (04/05/20 8:09 AM) Room air (04/05/20 6:12 AM) Room air (04/05/20 1:37 AM) Blood pressure sites Arm, right (04/05/20 6:12 AM) Arm, left (04/05/20 1:37 AM) Temperature Route Oral (04/05/20 6:12 AM) Oral (04/05/20 1:37 AM) Social History Social History Type Response Smoking Status Current every day kosta castellon; Type: Cigarettes; Tobacco use times per day: 1/2 PPD; Started at age: 16; entered on: 03/16/18 Sex
--- OUTSIDE RECORDS SUMMARY | 2023-08-22 04:49 | XMS_ITS | Continuity of Care Document ---
Author Name Unknown Organization [facility] Sandycecilia Maria [facility] [facility] Address [address], [address] [place] [address]- Care Team Providers Care Paper Cone Machine Operator Name Role Phone Abhi CALDERON, Ashlyn Monroy Primary Care Physician [phone] [place] [facility] [place] [place] [id number] Date(s): 03/19/20 - 04/27/20 [facility] [employer] [facility] [address] [place] [address]- [facility] Attending Physician: Abril CALDERON, Carmen Heller Allergies, Adverse Reactions, Alerts Substance Reaction Severity [...]
--- OUTSIDE RECORDS SUMMARY | 2023-08-22 04:49 | XMS_ITS | Continuity of Care Document ---
Author Name Unknown Organization [facility] Address [address] [place] [address]- Care Team Providers Care Natural Resources Specialist Name Role Phone Abhi CALDERON, Ashlyn Monroy Primary Care Physician Encounter [facility] Date(s): 05/07/21 - 06/06/21 [facility] [address] [place] [address] Attending Physician: AdmLalo scott Admitting Physician: AdmtrLalo Referring Physician: Admtr, Ar8 Allergies, Adverse Reactions, Alerts Substance Reaction Severity [...] tablet, 0 Refills, Maintenance, 05/07/21 10:52:00 EDT, [facility] #[id number], Partial fill upon patient request if the [...]
--- OUTSIDE RECORDS SUMMARY | 2023-08-22 04:49 | XMS_ITS | Continuity of Care Document ---
Author Name Unknown Organization [facility] Address [address] [place] [address]- Care Team Providers Care Papier Mache' Molder Name Role Phone Abhi CALDERON, Ashlyn Monroy Primary Care Physician [phone] Encounter [facility] Date(s): 05/27/20 - 06/26/20 [facility] [address] [address]- [facility] Attending Physician: Lalo Rai Admitting Physician: AdmLalo scott Referring Physician: AdmtrLalo Allergies, Adverse Reactions, Alerts [...]
--- OUTSIDE RECORDS SUMMARY | 2023-08-22 04:49 | XMS_ITS | Continuity of Care Document ---
Author Name Unknown Organization [facility] Address [address] [place] [address]- Care Team Providers Care Facilities Maintenance Engineer Name Role Phone Abhi CALDERON, Ashlyn Monroy Primary Care Physician [phone] [facility] Date(s): 12/03/20 - 01/02/21 [facility] [address] [place] [address]- Attending Physician: Lalo Rai Admitting Physician: Lalo [...]
--- OUTSIDE RECORDS SUMMARY | 2023-08-22 04:49 | XMS_ITS | Continuity of Care Document ---
Author Name Unknown Organization [facility] [place] Address [address] [place] [address]- Care Team Providers Care Spiral Winder Name Role Phone Abhi CALDERON, Ashlyn Monroy Primary Care Physician En[facility] NBR [id number] Date(s): 02/06/20 - 02/16/20 [facility] [place] [id number]- [facility] Attending Physician: Lalo Rai Admitting Physician: Laol Rai Referring Physician: Lalo Rai Allergies, Adverse [...]
--- OUTSIDE RECORDS SUMMARY | 2023-08-22 04:49 | XMS_ITS | Continuity of Care Document ---
Author Name Unknown Organization [facility] Address [address], [address]t [place] [address]- Care Team Providers Care Painting Manager Name Role Phone Abhi CALDERON, Ashlyn Monroy Primary Care Physician [facility] [facility] [place] [place] Date(s): 03/17/20 - 03/24/20 [facility] [employer] [facility] [address]th [place] [address]- [facility] Attending Physician: Abril CALDERON, Carmen Heller Referring Physician: Mallory Dumont CNM Allergies, Adverse Reactions, Alerts Substance Reaction Severity [...]
--- OUTSIDE RECORDS SUMMARY | 2023-08-22 04:49 | XMS_ITS | Continuity of Care Document ---
Author Name Unknown Organization [facility] Address [address] [place] [address]- Care Team Providers Care Central Supply Supervisor Name Role Phone Abhi CALDERON, Ashlyn Monroy Primary Care Physician [place] [facility] [place] - 04/30/21 [facility] [address] [place] [id number] Attending Physician: Maxwell Diaz MD Admitting Physician: [...]
--- OUTSIDE RECORDS SUMMARY | 2023-08-22 04:49 | XMS_ITS | Continuity of Care Document ---
Author Name Unknown Organization [facility] ter Address [address] [place] [address]- Care Team Providers Care Fisher Hoop Net Name Role Phone Abhi CALDERON, Ashlyn Monroy Primary Care Physician Encounter [facility] [place] Date(s): 11/13/20 - 11/14/[address] [address]- Encounter Diagnosis Infection of left hand(Final) - 11/13/20 Discharge Disposition: A-D/C AMA Attending Physician: Guadalupe Comer MD Admitting Physician: Guadalupe Cmoer MD Referring Physician: Not on Staff, Referring MD [...] will follow up with her PCP Medications Acetaminophen Tablet 975 mg, Tablet, By Mouth, Every 4 hours, in PACU ONLY, PRN for Pain , Mild, If patient has not received Oxycodone/Acetaminophen (Percocet-5) in PACU, Routine, 11/14/20 1:11:00 EST Start Date: 11/14/20 Stop Date: 11/15/20 Status: Discontinued Bactrim DS 800 mg-160 mg oral tablet 1 tablet, By Mouth, 2 times a day, for 14 days, # 28 tablet, 0 Refills, Acute 11/28/20 19:26:00 EST, 11/14/20 19:26:00 EST, Tablet, [id number], Partial fill upon patient request if the prescription is for a schedule II opioid drug., 1... Start Date: 11/14/20 Stop Date: 11/28/20 Status: Ordered Compression Stockings See Instructions, # 1 pack/packet, Maintenance, surgical, knee length 40-50 mm Hg, 04/05/20 7:12:00EDT, Supply Start Date: 04/05/20 Status: Ordered Compression Stockings See Instructions, # 2 each, Refills 1, Tot. Refills 1, Maintenance, surgical, knee length 20-30 mm Hg, 05/06/20 15:08:00 EDT, Supply Start Date: 05/06/20 Status: Ordered MorPHINE Inj 2 mg, Injection, IV Push Slowly, Every 2 hours, PRN for Pain , Severe, Routine, 11/14/20 1:18:00 EST Start Date: 11/14/20 Stop Date: 11/15/20 Status: Discontinued oxyCODONE 5 mg oral tablet 5 mg, Tablet, By Mouth, Every 6 hours, PRN for Pain , Severe, Routine, 11/14/20 1:33:00 EST Start Date: 11/14/20 Stop Date: 11/15/20 Status: Discontinued OxyCODONE IR Tablet 10 mg, Tablet, By Mouth, Every 4 hours, in PACU ONLY, if patient can tolerate PO, PRN for Pain , Moderate, Routine, 11/14/20 1:11:00 EST Start Date: 11/14/20 Stop Date: 11/15/20 Status: Discontinued Problem List Condition Effective Dates Status Health [...] nodule(Confirmed) Active Thyroid nodule(Confirmed) Active Trichotillomania(Confirmed) Active Results Orders for Microbiology Reports Name Date Anaerobic Culture (ANAEROBIC CULTURE) Wound Deep Culture w/ Gram Smear (DEEP W OUND CULTURE) 11/14/20 Anaerobic Culture (ANAEROBIC CULTURE) Anaerobic Culture (ANAEROBIC CULTURE) Wound Deep Culture w/ Gram Smear (DEEP W OUND CULTURE) 11/13/20 Wound Deep Culture w/ Gram Smear (DEEP W OUND CULTURE) 11/13/20 Microbiology Reports TEST:Anaerobic Culture STATUS:Unauthenticated BODY SITE: SOURCE:SWAB1 COLLECTED DATE/TIME:11/14/20 12:53 AM Anaerobic Culture SPECIMEN DESCRIPTION : SWAB LEFT HAND 1 SPECIAL REQUESTS : OR SPECIMEN REPORT STATUS : PRELIMINARY REPORT TEST:Deep Wound Culture STATUS:Unauthenticated BODY SITE: SOURCE:SWAB1 COLLECTED DATE/TIME:11/14/20 12:53 AM Deep Wound Culture SPECIMEN DESCRIPTION : SWAB LEFT HAND 1 SPECIAL REQUESTS : OR SPECIMEN GRAM STAIN : 1+ POLYMORPHONUCLEAR LEUKOCYTES 2+ GRAM POSITIVE COCCI REPORT STATUS : PRELIMINARY REPORT TEST:Anaerobic Culture STATUS:Unauthenticated BODY SITE: SOURCE:SWAB1 COLLECTED DATE/TIME:11/13/20 12:53 AM Anaerobic Culture SPECIMEN DESCRIPTION : SWAB LEFT HAND 2 SPECIAL REQUESTS : OR SPECIMEN REPORT STATUS : PRELIMINARY REPORT TEST:Deep Wound Culture STATUS:Unauthenticated BODY SITE: SOURCE:E SWAB COLLECTED DATE/TIME:11/13/20 12:53 AM Deep Wound Culture SPECIMEN DESCRIPTION : E SWAB LEFT HAND 3 SPECIAL REQUESTS : OR SPECIMEN GRAM STAIN : 3+ POLYMORPHONUCLEAR LEUKOCYTES 2+ GRAM POSITIVE COCCI REPORT STATUS : PRELIMINARY REPORT TEST:Deep Wound Culture STATUS:Unauthenticated BODY SITE: SOURCE:SWAB1 COLLECTED DATE/TIME:11/13/20 12:53 AM Deep Wound Culture SPECIMEN DESCRIPTION : SWAB LEFT HAND 2 SPECIAL REQUESTS : OR SPECIMEN GRAM STAIN : 2+ POLYMORPHONUCLEAR LEUKOCYTES 1+ GRAM POSITIVE COCCI REPORT STATUS : PRELIMINARY REPORT TEST:Anaerobic Culture STATUS:Unauthenticated BODY SITE: SOURCE:E SWAB COLLECTED DATE/TIME:11/13/20 12:53 AM Anaerobic Culture SPECIMEN DESCRIPTION : E SWAB LEFT HAND 3 SPECIAL REQUESTS : OR SPECIMEN REPORT STATUS : PRELIMINARY REPORT Radiology Reports * Exam Date Time Procedure Performing Provider Status 11/13/20 11:54 PM Hand Min 3 Views Left Sruthi Herrera Felicita; Auth (Verified) Notes: (Hand Min 3 Views Left) Reason For Exam: with Pain;Trauma RESULT: Hand Min 3 Views Left Hand Min 3 Views Left CLINICAL INDICATION: Hx of Present Illness: puncture wound 2 days ago to palmar aspect of left hand. Went to [facility]- sent here for eval by hand surgeon.; Reason: Trauma; with Pain; Clinical Question(s): Fracture COMPARISONS: None TECHNIQUE: AP, lateral and oblique views of the left hand were obtained. FINDINGS: Evaluation of the middle and distal phalanges is limited by flexion positioning of the fingers. No fracture or dislocation given this limitation. There is diffuse soft tissue edema involving the left hand with involvement of both palmar and dorsal soft tissues. No subcutaneous gas. No embedded foreign body. Normal radiocarpal alignment is maintained. Carpal joint spaces and bone contours are normal. MCP and IP joint spaces are maintained. No retained radiodense foreign body. IMPRESSION: Diffuse soft tissue edema mainly involving the palmar aspect of the hand. No fracture or retained foreign body. WSN: [id number] Ordering Physician: Malia Gresham Dictated By: Hiram Bowman MD Dictated Date/Time: 11/14/20 0:03 am Reviewed By: Hiram Bowman MD Signed By: Hiram Bowman MD Signed Date/Time: 11/14/20 0:03 am Transcribed By: WILBERT Transcribed Date/Time: 11/14/20 0:01 am Vital Signs Most recent to oldest [Reference Range]: 1 2 3 4 5 Weight 74.3 kg (11/14/20 3:32 AM) Oxygen Saturation [94-100 %] 100 % (11/14/20 11:42 AM) 97 % (11/14/20 3:32 AM) 96 % (11/14/20 3:00 AM) Pulse Rate [55-90 bpm] 72 bpm (11/14/20 11:42 AM) 89 bpm (11/14/20 3:32 AM) 93 bpm *H* (11/13/20 11:46 PM) Blood Pressure [90-138/55-84 mm Hg] 108/70mm Hg (11/14/20 11:42 AM) 113/57mm Hg (11/14/20 3:32 AM) 126/82mm Hg (11/14/20 3:00 AM) Respiratory Rate [16-30 br/min] 18 br/min (11/14/20 4:31 PM) 18 br/min (11/14/20 11:42 AM) 18 br/min (11/14/20 9:43 AM) 18 br/min (11/14/20 9:43 AM) 18 br/min (11/14/20 9:43 AM) Temperature [96.8-100.4 DegF] 98.5 DegF (11/14/20 11:42 AM) 97.6 DegF (11/14/20 3:32 AM) 98 DegF (11/14/20 1:45 AM) Liters per Minute 6 L/min (11/14/20 2:30 AM) 6 L/min (11/14/20 2:15 AM) 6 L/min (11/14/20 2:00 AM) Mode of Delivery (Oxygen) Room air (11/14/20 11:42 AM) Room air (11/14/20 3:32 AM) Room air (11/14/20 3:00 AM) Blood pressure sites Arm, right (11/14/20 11:42 AM) Arm, right (11/14/20 3:32 AM) Arm, right (11/14/20 3:00 AM) Temperature Route Oral (11/14/20 11:42 AM) Oral (11/14/20 3:32 AM) Temporal (11/14/20 1:45 AM) Dry Weight 74.3 kg (11/14/20 3:32 AM) Social History Social History Type Response Smoking Status Current every day kosta castellon; Type: Cigarettes; Tobacco use times per day: 1/2 PPD; Started at age: 16; entered on: 03/16/18 Sex
--- OUTSIDE RECORDS SUMMARY | 2023-08-22 04:49 | XMS_ITS | Continuity of Care Document ---
Author Name Unknown Organization [facility] ter Address [address] [place] [address]- Care Team Providers Care Head Boys Golf Coach Name Role Phone Abhi CALDERON, Ashlyn Monroy Primary Care Physician [place] [facility] [place] - 06/09/[address] [address]- Discharge Disposition: A-D/C Walkout Attending Physician: Not on Staff, Attending MD Admitting Physician: Not on Staff, Admitting MD Referring Physician: Not on Staff, Referring MD Allergies, Adverse Reactions, Alerts No Known Allergies Immunizations Given and Recorded Vaccine Date Status [...] tablet, 0 Refills, Maintenance, 05/07/21 10:52:00 EDT, [id number], Partial fill upon patient request if the [...] recent to oldest [Reference Range]: 1 2 Oxygen Saturation [94-100 %] 100 % (06/09/22 10:30 PM) 98 % (06/09/22 10:19 PM) Pulse Rate [55-90 bpm] 89 bpm (06/09/22 10:30 PM) 95 bpm *H* (06/09/22 10:19 PM) Blood Pressure [90-138/55-84 mm Hg] 110/ 69mm Hg (06/09/22 10:30 PM) Respiratory Rate [16-30 br/min] 19 br/mi n (06/09/22 10:30 PM) Temperature [96.8-100.4 DegF] 98.5 DegF (06/09/22 10:30 PM) Mode of Delivery (Oxygen) Room air (06/09/22 10:30 PM) Blood pressure sites Arm, right (06/09/22 10:30 PM) Temperature Route Oral (06/09/22 10:30 PM) Social History Social History Type Response Smoking Status Current every day kosta castellon; Type: Cigarettes; Tobacco use times per day: 1/2 PPD; Started at age: 16; entered on: 03/16/18 Sex
--- OUTSIDE RECORDS SUMMARY | 2023-08-22 04:49 | XMS_ITS | Continuity of Care Document ---
Author Name Unknown Organization [facility] Address [address] [place] [address]- Care Team Providers Care Freight Manager Name Role Phone Abhi CALDERON, Ashlyn Monroy Primary Care Physician [phone] Encounter [facility] ACCT R [id number] Date(s): 04/14/20 - 05/24/[address] [address]- [facility] Attending Physician: Chilango Hurst MD Admitting Physician: Chilango Hurst MD Referring Physician: Chilango Hurst MD Allergies, Adverse Reactions, Alerts Substance Reaction [...]
--- OUTSIDE RECORDS SUMMARY | 2023-08-22 04:49 | XMS_ITS | Continuity of Care Document ---
Author Name Unknown Organization [facility] [place] Address [address] [place] [address]- Care Team Providers Care Observer Helper Name Role Phone Abhi CALDERON, Ashlyn Monroy Primary Care Physician Encounter [facility] NBR [id number] Date(s): 02/05/20 - 03/07/20 [facility] [address] [address]- [facility] Attending Physician: Marie Inrgam MD Admitting Physician: Marie Ingram MD Referring Physician: Abhi CALDERON, Ashlyn Monroy Allergies, Adverse Reactions, Alerts Substance Reaction Severity [...]
--- OUTSIDE RECORDS SUMMARY | 2023-08-22 04:49 | XMS_ITS | Continuity of Care Document ---
Author Name Unknown Organization [facility] Address [address] [place] [address]- Care Team Providers Care Shoe Lining Fitter Name Role Phone Abhi CALDERON, Ashlyn Monroy Primary Care Physician [phone] [place] [facility] [place](s): 05/19/20 - 06/18/20 [facility] [address] [place] [address]- [facility] Attending Physician: Lalo Rai Admitting Physician: Lalo Rai Referring Physician: AdmtrLlao Allergies, Adverse Reactions, Alerts Substance Reaction Severity [...]
--- OUTSIDE RECORDS SUMMARY | 2023-08-22 04:49 | XMS_ITS | Continuity of Care Document ---
Author Name Unknown Organization [facility] Address [address] [address]- Care Team Providers Care Coat Maker Name Role Phone Abhi CALDERON, Ashlyn Monroy Primary Care Physician [phone] Encounter [facility] Date(s): 01/23/20 - 02/02/20 [facility] [address] [address]- [facility] Attending Physician: Lalo Rai Admitting Physician: Lalo [...] will follow up with her PCP Medications Tetracycline By Mouth, Every 12 hours, 0 Refills, Maintenance, 01/23/20 14:51:00 EST Start Date: 01/23/20 Status: Ordered Problem List Condition Effective Dates [...]
--- OUTSIDE RECORDS SUMMARY | 2023-08-22 04:49 | XMS_ITS | Continuity of Care Document ---
Author Name Unknown Organization [facility] Address [address] [place] [address]- Care Team Providers Care Seafood Clerk Name Role Phone Abhi CALDERON, Ashlyn Monroy Primary Care Physician [phone] En[place] [facility] [place] Date(s): 05/22/20 - 06/21/20 [facility] [address] [place] [address]- [facility] Attending Physician: Danny Garcia MD Admitting Physician: Danny Garcia MD Allergies, Adverse Reactions, Alerts Substance Reaction [...]
--- OUTSIDE RECORDS SUMMARY | 2023-08-22 04:49 | XMS_ITS | Continuity of Care Document ---
Author Name Unknown Organization [facility] ter Address [address] [place] [address]- Care Team Providers Care Adoption Counselor Name Role Phone Ashlyn Moe MD Primary Care Physician [phone] [place] [facility] [place] 02/11/20 - 03/13/[address] [address]- [facility] Attending Physician: Ashlyn Moe MD Admitting Physician: [...]
--- OUTSIDE RECORDS SUMMARY | 2023-08-22 04:49 | XMS_ITS | Continuity of Care Document ---
Author Name Unknown Organization [facility] ter Address [address] [place] [address]- Care Team Providers Care Developer Automatic Name Role Phone Ashlyn Moe MD Primary Care Physician En[place] [facility] [place] Date(s): 02/21/20 - 05/15/[address] [address]- [facility] Attending Physician: Ashlyn Moe MD [...]
--- OUTSIDE RECORDS SUMMARY | 2023-08-22 04:49 | XMS_ITS | Continuity of Care Document ---
Author Name Unknown Organization [facility] [place] Address [address] [place] [address]- Care Team Providers Care Water Meter Installer Name Role Phone Ashlyn Moe MD Primary Care Physician [id number] Date(s): 03/28/20 - 04/30/[address] [facility] [address] [address]- [facility] Attending Physician: Ashlyn Moe MD Allergies, Adverse Reactions, [...]
--- OUTSIDE RECORDS SUMMARY | 2023-08-22 04:49 | XMS_ITS | Continuity of Care Document ---
Author Name Unknown Organization [facility] [place] Address [address] [place] [address]- Care Team Providers Care Head Host/Hostess Name Role Phone Abhi CALDERON, Ashlyn Monroy Primary Care Physician [phone] [id number] Date(s): 04/22/20 - 05/29/20 [facility] [address] [address] [facility] Attending Physician: Kimi Narayan [...]
--- OUTSIDE RECORDS SUMMARY | 2023-08-22 04:49 | XMS_ITS | Continuity of Care Document ---
Author Name Unknown Organization [facility] [place] Address [address] [place] [address]- Care Team Providers Care Hotel Manager Name Role Phone Ashlyn Moe MD Primary Care Physician [phone] Encounter [facility] Date(s): 11/24/20 - 12/24/20 [facility] [place] [address] [place] [address]- Attending Physician: Ashlyn Moe MD Admitting Physician: [...] oldest [Reference Range]: 1 Height 163 cm (11/24/20 11:16 AM) Social History Social History Type Response Smoking Status Current every day kosta castellon; Type: Cigarettes; Tobacco use times per day: 1/2 PPD; Started at age: 16; entered on: 03/16/18 Sex
--- OUTSIDE RECORDS SUMMARY | 2023-08-22 04:49 | XMS_ITS | Continuity of Care Document ---
Author Name Unknown Organization [facility] Address [address] [place] [address]- Care Team Providers Care Psychologist Industrial Organizational Name Role Phone Ashlyn Moe MD Primary Care Physician Encounter [facility] ACCT R [id number] Date(s): 04/29/20 - 05/29/[address] [address]- [facility] Attending Physician: Chilango Hurst MD Admitting Physician: Chilango Hurst MD Referring Physician: Ashlyn [...]
--- OUTSIDE RECORDS SUMMARY | 2023-08-22 04:49 | XMS_ITS | Continuity of Care Document ---
Author Name Unknown Organization [facility] Address [address] [place] [address]- Care Team Providers Care Piano Mover Name Role Phone Abhi CALDERON, Ashlyn Monroy Primary Care Physician [place] [facility] [place] 05/06/20 - 08/10/20 [facility] [address] [place] [address] Attending Physician: Danny Garcia MD Admitting Physician: Danny Garcia MD Referring Physician: Danny Garcia MD Allergies, Adverse Reactions, [...]
--- OUTSIDE RECORDS SUMMARY | 2023-08-22 04:49 | XMS_ITS | Continuity of Care Document ---
Author Name Unknown Organization [facility] [place] Address [address] [place] [address]- Care Team Providers Care Career Placement Services Counselor Name Role Phone Abhi CALDERON, Ashlyn Monroy Primary Care Physician Encounter [facility] Date(s): 01/20/21 - 02/19/21 [facility] [place] [address] [place] [address]- Allergies, Adverse Reactions, Alerts Substance Reaction Severity [...]
--- OUTSIDE RECORDS SUMMARY | 2023-08-22 04:49 | XMS_ITS | Continuity of Care Document ---
Author Name Unknown Organization [facility] Address [address] [place] [address]- Care Team Providers Care Dispensing Optician Name Role Phone Abhi CALDERON, Ashlyn Monroy Primary Care Physician [phone] Encounter [facility] Date(s): 05/09/20 - 06/14/20 [facility] [address] [place] [address]- [facility] Attending Physician: Danny Garcia MD Admitting Physician: [...]
--- OUTSIDE RECORDS SUMMARY | 2023-08-22 04:49 | XMS_ITS | Continuity of Care Document ---
Author Name Unknown Organization [facility] Address [address] [place] [address]- Care Team Providers Care Accounts Payable Coordinator Name Role Phone Abhi CALDERON, Ashlyn Monory Primary Care Physician [phone] [place] [facility] [place] Date(s): 01/20/21 - 02/19/21 [facility] Diabetes [address] [place] [address]- Allergies, Adverse Reactions, Alerts Substance Reaction Severity [...]
--- OUTSIDE RECORDS SUMMARY | 2023-08-22 04:49 | XMS_ITS | Continuity of Care Document ---
Author Name Unknown Organization [facility] Address [address] [place] [address]- Care Team Providers Care Tile And Marble Installer Name Role Phone Ashlyn Moe MD Primary Care Physician [phone] [place] [facility] [place] 06/02/20 - 06/09/20 [facility] [address] [place] [address]- [facility] Attending Physician: Danny Garcia MD Admitting Physician: Danny Garcia MD Referring Physician: Ashlyn Moe MD Allergies, [...] oldest [Reference Range]: 1 Height 163 cm (05/30/20 2:47 PM) Weight 75.0 kg (05/30/20 2:47 PM) Body Mass Index [18.5-24.99] 28.23 *H* (05/30/20 2:47 PM) Weight Obtained Via Patient/family state d (05/30/20 2:47 PM) Social History Social History Type Response Smoking Status Current every day kosta castellon; Type: Cigarettes; Tobacco use times per day: 1/2 PPD; Started at age: 16; entered on: 03/16/18 Sex
--- OUTSIDE RECORDS SUMMARY | 2023-08-22 04:49 | XMS_ITS | Continuity of Care Document ---
Author Name Unknown Organization [facility] Address [address] [place] [address]- Care Team Providers Care Rn Neonatal Icu Name Role Phone Abhi CALDERON, Ashlyn Monroy Primary Care Physician En[place] [facility] [place] Date(s): 05/12/21 - 06/11/21 [facility] [address] [place] [id number] Allergies, Adverse Reactions, Alerts Substance Reaction Severity [...] tablet, 0 Refills, Maintenance, 05/07/21 10:52:00 EDT, [id number], Partial fill upon patient request if the [...]
--- OUTSIDE RECORDS SUMMARY | 2023-08-22 04:49 | XMS_ITS | Continuity of Care Document ---
Author Name Unknown Organization [facility] Address [address] [place] [address]- Care Team Providers Care Communications Attendant Name Role Phone Abhi CALDERON, Ashlyn Monroy Primary Care Physician [phone] Encounter [facility] NBR [id number] Date(s): 12/21/19 - 02/27/20 [facility] [address] [address]- [facility] Attending Physician: Chilango Hurst MD Allergies, Adverse Reactions, [...]
--- OUTSIDE RECORDS SUMMARY | 2023-08-22 04:49 | XMS_ITS | Continuity of Care Document ---
Author Name Unknown Organization [facility] [place] [employer] Address [address] [facility], [address] [place] [address]- Care Team Providers Care Senior Training And Development Rep Name Role Phone Abhi CALDERON, Ashlyn Monroy Primary Care Physician [phone] En[place] [facility] [place] Date(s): 03/28/20 - 04/27/20 [facility] [address] [facility], [address]th [place] [address]- [facility] Attending Physician: Lalo Rai Admitting Physician: [...]
--- OUTSIDE RECORDS SUMMARY | 2023-08-22 04:49 | XMS_ITS | Continuity of Care Document ---
Author Name Unknown Organization [facility] Address [address] [place] [address]- Care Team Providers Care Dry Food Products Mixer Name Role Phone Abhi CALDERON, Ashlyn Monroy Primary Care Physician [id number] Date(s): 10/31/19 - 11/10/19 [facility] [address] [address]- [facility] Attending Physician: Lalo Rai Admitting Physician: [...]
--- OUTSIDE RECORDS SUMMARY | 2023-08-22 04:50 | XMS_ITS | Continuity of Care Document ---
Author Name Unknown Organization [facility] [place] Address [address] [place] [address]- Care Team Providers Care Manager Technical Training Name Role Phone Ashlyn Moe MD Primary Care Physician Encounter [facility] NBR [id number] Date(s): 03/28/20 - 04/30/20 [facility] [address] [address]- [facility] Attending Physician: Ashlyn Moe MD Allergies, [...]
--- OUTSIDE RECORDS SUMMARY | 2023-08-22 04:50 | XMS_ITS | Continuity of Care Document ---
Author Name Unknown Organization [facility] Address [address] [place] [address]- Care Team Providers Care Trading Floor Operator Name Role Phone Abhi CALDERON, Ashlyn Monroy Primary Care Physician En[place] [facility] [place] Date(s): 06/02/20 - 07/02/20 [facility] [address] [place] [address]- [facility] Attending Physician: Lalo Rai Admitting [...]
--- OUTSIDE RECORDS SUMMARY | 2023-08-22 04:50 | XMS_ITS | Continuity of Care Document ---
Author Name Unknown Organization [facility] Primary Car e [place] Address [address] [place] [address]- Care Team Providers Care Power Brake Operator Name Role Phone Abhi CALDERON, Ashlyn Monroy Primary Care Physician Encounter [facility] NBR [id number] Date(s): 04/29/20 - 05/29/20 [facility] Care [address] [address]- [facility] Attending Physician: Lalo Rai Admitting Physician: AdmLalo scott Referring Physician: AdmLalo scott Allergies, Adverse Reactions, Alerts Substance Reaction Severity [...]
--- OUTSIDE RECORDS SUMMARY | 2023-08-22 04:50 | XMS_ITS | Continuity of Care Document ---
Author Name Unknown Organization [facility] Neurology [facility] Address [address] [place] [address]- Care Team Providers Care Facility Supervisor Name Role Phone Abhi CALDERON, Ashlyn Monroy Primary Care Physician Encounter [facility] Date(s): 04/02/20 - 06/26/20 [facility] Neurology [place] [address] [place] [address]- [facility] Attending Physician: Chilango Hurst MD Referring Physician: [...]
--- OUTSIDE RECORDS SUMMARY | 2023-08-22 04:50 | XMS_ITS | Continuity of Care Document ---
Author Name Unknown Organization [facility] Primary Car e [place] Address [address] [place] [address]- Care Team Providers Care Sewage Disposal Worker Name Role Phone Abhi CALDERON, Ashlyn Monroy Primary Care Physician [phone] Encounter [facility] Date(s): 11/24/20 - 12/24/20 [facility] Care [place] [address] [place] [address]- Attending Physician: Lalo Rai Admitting Physician: Lalo [...]
--- OUTSIDE RECORDS SUMMARY | 2023-08-22 04:50 | XMS_ITS | Continuity of Care Document ---
Author Name Unknown Organization [facility] Address [address] [place] [address]- Care Team Providers Care Lime Kiln Worker Helper Name Role Phone Ahbi CALDERON, Ashlyn Monroy Primary Care Physician [phone] Encounter [facility] NBR [id number] Date(s): 10/03/19 - 11/10/[address] [address]- [facility] Attending Physician: Chilango Hurst MD Admitting [...]
--- OUTSIDE RECORDS SUMMARY | 2023-08-22 04:50 | XMS_ITS | Continuity of Care Document ---
Author Name Unknown Organization [facility] [place] Address [address] [place] [address]- Care Team Providers Care County Bailiff Name Role Phone Abhi CALDERON, Ashlyn Monroy Primary Care Physician Encounter [facility] Date(s): 12/02/20 - 01/01/21 [facility] Adult [address] [place] [address]- Attending Physician: Lalo Rai Admitting Physician: Lalo [...]
--- OUTSIDE RECORDS SUMMARY | 2023-08-22 04:50 | XMS_ITS | Continuity of Care Document ---
Author Name Unknown Organization [facility] Address [address] [place] [address]- Care Team Providers Care Utility Porter Name Role Phone Abhi CALDERON, Ashlyn Monroy Primary Care Physician Encounter [facility] Date(s): 05/15/20 - 06/14/20 [facility] [address] [place] [address]- [facility] Attending Physician: Admtr, Lalo Admitting Physician: AdmtrLalo Referring Physician: Admtr, Ar8 [...]
--- OUTSIDE RECORDS SUMMARY | 2023-08-22 04:50 | XMS_ITS | Continuity of Care Document ---
Author Name Unknown Organization [facility] Address [address] [place] [address]- Care Team Providers Care Sports Journalist Name Role Phone Abhi CALDERON, Ashlyn Monroy Primary Care Physician [place] [facility] Date(s): 12/02/20 - 12/09/20 [facility] Adult [address] [place] [address]- Encounter Diagnosis Rash(Discharge Diagnosis) - 12/02/20 Trichotillomania(Discharge Diagnosis) - 12/02/20 Attending Physician: Starr Dan NP Allergies, Adverse Reactions, Alerts Substance Reaction [...] nodule(Confirmed) Active Thyroid nodule(Confirmed) Active Trichotillomania(Confirmed) Active Diagnosis Diagnosis Type Effective Dates Health Status Clinical Service Informant Rash Discharge Diagnosis 12/02/20 Trichotillomania Discharge Diagnosis 12/02/20 Social History Social History Type Response Smoking Status Current every day kosta castellon; Type: Cigarettes; Tobacco use times per day: 1/2 PPD; Started at age: 16; entered on: 03/16/18 Sex
--- OUTSIDE RECORDS SUMMARY | 2023-08-22 04:50 | XMS_ITS | Continuity of Care Document ---
Author Name Unknown Organization [facility] Primary Car e [place] Address [address] [place] [address]- Care Team Providers Care Shift Foreman Name Role Phone Abhi CALDERON, Aslhyn Monroy Primary Care Physician Encounter [facility] Date(s): 03/04/21 - 04/03/21 [facility] Primary Care [place] [address] [place] [address]- Allergies, Adverse Reactions, Alerts Substance Reaction Severity [...]
--- OUTSIDE RECORDS SUMMARY | 2023-08-22 04:50 | XMS_ITS | Continuity of Care Document ---
Author Name Unknown Organization [facility] Primary Car e [place] Address [address] [place] [address]- Care Team Providers Care High School Agriculture Teacher Name Role Phone Ashlyn Moe MD Primary Care Physician Encounter [facility] Date(s): 11/17/20 - 12/18/20 [facility] Care [place] [address] [place] [address]- Encounter Diagnosis Abscess of left hand(Discharge Diagnosis) - 11/18/20 Attending Physician: Ashlyn Moe MD Admitting Physician: [...] Diagnosis Diagnosis Type Effective Dates Health Status Cl inical Service Informant Abscess of left hand Discharge Diagnosis 11/18/20 Vital Signs Most recent to oldest [Reference Range]: 1 Height 163 cm (11/18/20 1:50 PM) Social History Social History Type Response Smoking Status Current every day kosta castellon; Type: Cigarettes; Tobacco use times per day: 1/2 PPD; Started at age: 16; entered on: 03/16/18 Sex
--- OUTSIDE RECORDS SUMMARY | 2023-08-22 04:50 | XMS_ITS | Continuity of Care Document ---
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
--- OUTSIDE RECORDS SUMMARY | 2023-08-22 04:50 | XMS_ITS | Continuity of Care Document ---
Author Name Unknown Organization [facility] Neurology [facility] Address [address] [place] [address]- Care Team Providers Care Manager Business Process Name Role Phone Abhi CALDERON, Ashlyn Monroy Primary Care Physician Encounter [facility] Date(s): 01/28/20 - 02/07/20 [facility] Neurology [address] [address]- [facility] Attending Physician: Lalo Rai Admitting Physician: [...] enance opioid agonist therapy, no symptoms(Confirmed) Active Major depressive disorder, r ecurrent, moderate(Confirmed) Active Thyroid nodule(Confirmed) Active Thyroid nodule(Confirmed) Active Trichotillomania(Confirmed) Active Social History Social History Type Response Smoking Status Current every day kosta castellon; Type: Cigarettes; Tobacco use times per day: 1/2 PPD; Started at age: 16; entered on: 03/16/18 Sex
--- OUTSIDE RECORDS SUMMARY | 2023-08-22 04:50 | XMS_ITS | Continuity of Care Document ---
Author Name Unknown Organization [facility] Primary Car e [place] Address [address] [place] [address]- Care Team Providers Care Authorization Nurse Name Role Phone Abhi CALDERON, Ashlyn Monroy Primary Care Physician Encounter [facility] Date(s): 08/07/20 - 09/06/20 [facility] Primary Care [address] [address]- [facility] Allergies, Adverse Reactions, Alerts Substance Reaction Severity [...]
--- NOTE | 2023-08-22 05:12 | MHC.EDTECH ---
Hourly rounds and vitals completed,patients blood pressure is low at 95/51 RN Cari made aware. Call bishop within reach
[2023-08-22] MEDS: vancomycin HCL 1,000 MG, vancomycin HCL 750 MG in 0.9 % Sodium Chloride 500 ML 267.5 MG IV (05:57)
--- NOTE | 2023-08-22 06:00 | MHC.EDTECH ---
Hourly rounds and vitals completed, patients BP is low at 99/47 RN Cari made aware.
--- NOTE | 2023-08-22 06:45 | ED_ITS ---
HPI - Back Pain/Injury General Chief Complaint: Back Pain/Injury Stated Complaint: fever Time Seen by Provider: 08/22/23 06:38 Source: patient, EMS and RN notes reviewed Mode of arrival: EMS Limitations: no limitations History of Present Illness HPI Narrative: 38 year old female with pmhx significant for IVDU presenting to the ED today via EMS from [facility], complaining of headache, fever, and lower back pain, worsening x1 week. States that she has been unable to get any sleep over the past couple of days because of her back pain. Her back pain is localized to the mid to left lower back. No radiation of pain. States that it is worse with palpation of the area and movement. Has had difficulty rising from a seated or lying position secondary to pain. Additionally endorses a fever in subjective headache for the past week. Patient admits to history of IVDU. Denies current drug use. Denies chills, [place], dizziness, vomiting, diarrhea. Denies fall, injury, or trauma. Related Data Home Medications Medication Instructions Recorded Confirmed No Known Home Meds 08/22/23 08/22/23 Allergies Allergy/AdvReac Type Severity Reaction Status Date / Time No Known Allergies Allergy Verified 12/14/21 15:29 Review of Systems 2 Review of Systems: Constitutional: No fever, chills, fatigue, night sweats, weight changes ENT/Mouth: No ear pain, hearing loss, nasal congestion, sinus pain, rhinorrhea, sore throat Eyes: No eye pain, swelling, redness, vision changes, discharge Cardio: No chest pain, palpitations, [place], orthopnea, peripheral edema Pulm: No SOB, cough, sputum, wheezing, dyspnea, hemoptysis GI: No nausea, No vomiting, hematemesis, abdominal pain, diarrhea, constipation, hematochezia, melena : No irregular bleeding, dysuria, frequency, urgency, hesitancy, hematuria, flank pain, urinary flow changes, urinary incontinence or retention MSK: + back pain, No neck pain, joint pain, No myalgias Skin: No lesions, rashes Neuro: No weakness, numbness, paresthesias, LOC, dizziness, + headache Psych: No anxiety/panic, depression, SI/HI, AH/VH All other systems reviewed and are negative. [facility] Past Medical History Attestation statement: The following information was validated with the patient. Source: old records reviewed and nursing notes reviewed Medical History Scabies Social History Social History Alcohol intake: never Patient Tobacco Use Status: Current everyday Tobacco user Smoked in Last 30 Days: Yes Use of substances other than those prescribed or required for medical reasons: Yes Substance Use Type: Crack/Cocaine and Heroin Advance Directives: No Advance Directives Information Provided: No Nutrition Risks: No Nutritional Risk Patient : No Physical Exam 2 Vital Signs: Vital Signs: Last Vital Signs Temp 100.8 F H 08/22/23 16:45 Pulse 113 H 08/22/23 16:45 Resp 20 08/22/23 16:45 BP 116/62 08/22/23 14:30 Pulse Ox 93 08/22/23 16:45 O2 Del Method Room Air 08/22/23 16:45 BMI result Body Mass Index 26.3 Const: General: cooperative, no acute distress, alert and awake O rientation/consciousness: patient oriented x3 Limitations: no limitations HEENT: Head: Yes normal to inspection Ears: hearing grossly normal bilaterally General nose exam: Normal external nose present Eyes: General: appearance normal, both eyes and all related structures EOM: EOMs intact bilaterally Neck: Neck: Yes normal visual inspection, Yes full ROM, Yes no meningeal signs, No positive Brudzinski's sign and No positive Kernig's sign Chest: Chest palpation & inspection: normal inspection of the chest and normal palpation of entire chest wall Resp: Effort & Inspection: normal respiratory effort Auscultation: clear to auscultation bilaterally Cardio: Rate: regular rate Rhythm: regular rhythm Heart sounds: S1 normal heart sound present and S2 normal heart sound present Peripheral pulses: Peripheral pulses 2+ throughout GI: Inspection: Yes normal to inspection Palpation (GI): Soft to palpation, nontender, no guarding, hepatosplenomegaly present and No Rebound tenderness present : General: Yes no CVA tenderness Back/Spine/Pelvis: Other: + excuisite midline spinous tenderness t o palpation over the lumbar spine. No step off or deformity. Back: no CVA tenderness Skin: General skin exam: no rashes or lesions noted Neuro: Other: Strength 5/5 intact throughout.? No saddle anesthesia.? Sensation intact to light touch.? NV intact distally.? General: patient oriented x3, moves all extremities, no meningeal signs and deep tendon reflexes 2+ bilaterally Cranial nerves: Yes CN's II-XII intact bilaterally Extrem: General: Yes normal to inspection and Yes full ROM Course Course Course Narrative: 1644-- on my review of patient's vital signs, patient with initial low-grade temp of a 100?F, now down to 98.2F after Tylenol administration. Patient with BP in the 90s over high 40s. Patient placed on abx by overnight provider for concern for infection. > CBC without leukocytosis. Chemistry without acute electrolyte abnormality requiring intervention. Lactic acid WNL > I do no suspect sepsis at this time. CRP and ESR elevated. b HCG negative. Negative for COVID, influenza. Chest x- ray showing right basilar opacity with question consolidation. Lumbar spine CT without acute findings > recommend MRI. 0700-- on my exam initial exam of the patient, patient with in a left lumbar tenderness to palpation, difficulty sitting up in bed. Patient has a hx of IVDU however denies use at present. Will consider MRI to rule out epidural abscess. Patient already receiving antibiotics. As lactic is negative, no white count, patient non tachycardic I do not have concern for sepsis at this time. 0909-- patient's blood pressure has slightly decreased to 87/49 however she is not tachycardic and afebrile. She does not have a white count and her lactic is normal. I do not suspect sepsis at this time. 2 more liters of IVF ordered. 0950-- discussed case with my attending physician, Dr. Odonnell, who upon reviewing the patient's chart is recommending admission to Medicine for IV antibiotics for pneumonia and inpatient MRI. > will reach out to Erika Garcia NP for admission 1016-- Patient admitted. Erika Garcia to put in admission orders. Medications Administered Generic Name Dose Route Start Last Admin Trade Name Freq PRN Reason Stop Dose Admin Acetaminophen 650 mg 08/22/23 12:03 08/22/23 16:50 Acetaminophen 325 Mg Tablet PO 650 mg Q6H PRN Administration Pain, Mild (Pain Scale 1-3) Enoxaparin Sodium 40 mg 08/22/23 13:00 08/22/23 13:23 Enoxaparin Sodium 40 Mg/0.4 Ml Syringe SUBCUT 40 mg Q24H SERGIO Administration Hydromorphone HCl 0.5 mg 08/22/23 17:30 08/22/23 18:31 Hydromorphone Hcl 1 Mg/Ml Syringe IVPUSH 0.5 mg Q4H PRN Administration Pain, Severe (Pain Scale 7-10) Protocol Sodium Chloride 1,000 mls @ 100 mls/hr 08/22/23 12:30 08/22/23 13:22 Ns IVCONT 100 mls/hr .Q10H SERGIO Administration Methadone HCl 70 mg 08/22/23 14:20 08/22/23 14:39 Methadone Hcl 20 Mg/2 Ml Oral.Conc PO 70 mg DAILY SERGIO Administration Sodium Chloride 3 ml 08/22/23 16:00 08/22/23 15:31 0.9 % Sodium Chloride Flush 3 Ml Syringe IVFLUSH Not Given QSHIFT SERGIO Discontinued Medications Generic Name Dose Route Start Last Admin Trade Name Freq PRN Reason Stop Dose Admin Acetaminophen 650 mg 08/22/23 02:55 08/22/23 03:45 Acetaminophen 325 Mg Tablet PO 08/22/23 02:56 650 mg ONCE ONE Administration Hydromorphone HCl 1 mg 08/22/23 03:07 08/22/23 03:37 Hydromorphone Hcl 1 Mg/Ml Syringe IVPUSH 08/22/23 03:08 1 mg ONCE ONE Administration Protocol Hydromorphone HCl 0.5 mg 08/22/23 12:03 08/22/23 13:32 Hydromorphone Hcl 1 Mg/Ml Syringe IVPUSH 0.5 mg Q4H PRN Administration Pain, Severe (Pain Scale 7-10) Protocol Hydromorphone HCl 0.5 mg 08/22/23 14:43 08/22/23 15:30 Hydromorphone Hcl 0.5 Mg/0.5 Ml Syringe IVPUSH 08/22/23 14:44 Not Given ONCE ONE Protocol Sodium Chloride 1,000 mls @ 999 mls/hr 08/22/23 03:00 08/22/23 05:31 Ns IV 08/22/23 04:00 Infused .Q1H1M SERGIO Infusion Ceftriaxone Sodium 2 gm/ 50 mls @ 100 mls/hr 08/22/23 03:06 08/22/23 05:09 Sodium Chloride IV 08/22/23 03:35 Infused ONCE ONE Infusion Vancomycin HCl 1,000 mg/ 535 mls @ 267.5 mls/hr 08/22/23 03:06 08/22/23 08:25 Vancomycin HCl 750 mg/ Sodium IV 08/22/23 05:05 Infused Chloride ONCE ONE Infusion Sodium Chloride 1,000 mls @ 999 mls/hr 08/22/23 09:15 08/22/23 10:21 Ns IV 08/22/23 10:15 Infused .Q1H1M SERGIO Infusion Sodium Chloride 1,000 mls @ 999 mls/hr 08/22/23 09:15 08/22/23 10:21 Ns IV 08/22/23 10:15 Infused .Q1H1M SERGIO Infusion Ketorolac Tromethamine 15 mg 08/22/23 02:55 08/22/23 03:39 Ketorolac Tromethamine 15 Mg/Ml Vial IVPUSH 08/22/23 02:56 15 mg ONCE ONE Administration Lorazepam 1 mg 08/22/23 17:53 08/22/23 18:30 Lorazepam 2 Mg/Ml Vial IVPUSH 08/22/23 17:54 1 mg ONCE ONE Administration Medical Decision Making Medical Decision Making MDM Narrative: 38 year old female with pmhx significant for IVDU presenting to the ED today via EMS from [facility], complaining of headache, fever, and lower back pain, worsening x1 week. VSS. RRR. Lungs CTA bilaterally. Excuisite midline spinous tenderness over the lumbar region. no step off or deformity. Neuro exam nonfocal. Clinical concern for viral syndrome vs pneumonia vs aspiration. Low suspicion for meningitis/ encephalitis. Suspicion for UTI vs pyelonephritis. Will review basic labs, viral serology, hCG, lactate, blood cultures, inflammatory markers, UA, , CXR, CT lumbar spine with contrast, IVF, pain control and antibiotics ordered by overnight provider. Differential Diagnosis Differential Diagnoses: The differential diagnosis associated with the presentation includes As above. Admission/Observation Consideration of admission/observation: Escalation of care including admission/observation considered Patient admitted to medicine. Consult Healthcare Provider Management of the patient was discussed with: Hospitalist (Erika Garcia NP) Lab Data [facility] Lab Attestation statement: I reviewed the patient's lab results. As above. 08/22/23 03:59 08/22/23 03:59 Labs: Lab Results 08/22/23 08/22/23 08/22/23 Range/Units 02:43 03:59 10:23 WBC 6.2 (4.8-10.8) X10*3/uL RBC 4.14 L (4.20-5.50) X10*6/uL Hgb 11.7 L (12.0-16.0) g/dl Hct 34.6 L (37.0-47.0) % MCV 83.6 (80.0-98.0) fL MCH 28.3 (27.0-33.0) pg MCHC 33.8 (31.0-35.0) g/dl RDW 12.6 (11.0-16.0) % Plt Count 167 (160-400) X10*3/uL MPV 10.5 (9.4-12.3) fL Immature Gran % (Auto) 1.6 H (0.0-0.4) % Neut % (Auto) 79.9 H (45-73) % Lymph % (Auto) 8.7 L (20-40) % [place] % (Auto) 9.3 (2-11) % Eos % (Auto) 0.2 (0-4) % Baso % (Auto) 0.3 (0-2) % Lymph # (Auto) 0.5 L (1.2-4.9) X10*3/uL [place] # (Auto) 0.6 (0.1-1.2) X10*3/uL Eos # (Auto) 0.0 (0.0-0.4) X10*3/uL Baso # (Auto) 0.0 (0.0-0.2) X10*3/uL Abs Immat Gran (auto) 0.10 H (0.00-0.03) X10*3/uL Absolute Neuts (auto) 5.0 (2.0-8.3) x10*3/uL Absolute Nucleated RBC 0.000 (0.0-0.012) X10*3/uL Nucleated RBC % (auto) 0.0 (0.0-0.2) /100WBC ESR 78 H (0-20) MM/HR Sodium 131 L (135-145) mmol/L Potassium 3.7 (3.3-5.1) mmol/L Chloride 95 L (96-108) mmol/L Carbon Dioxide 24 (22-29) mmol/L Anion Gap 16 (12-20) BUN 14 (9-16) mg/dL Creatinine 0.71 (0.5-1.4) mg/dL Estim Creat Clear Calc 101.7 Estimated GFR > 60 Random Glucose 116 H (60-115) mg/dL Lactic Acid 1.4 (0.5-2.0) mmol/L Calcium 8.5 (8.4-10.2) mg/dL Magnesium 2.3 (1.6-2.6) mg/dL Total Bilirubin 0.7 (0.0-1.0) mg/dL Direct Bilirubin 0.4 (0.0-0.5) mg/dL AST 25 (5-31) U/L ALT 18 (0-31) U/L Alkaline Phosphatase 177 H (39-117) U/L C-Reactive Protein 41.73 H (< or = 0.50) mg/dL Total Protein 7.0 (6.5-8.0) g/dL Albumin 2.8 L (3.5-5.0) g/dL Beta HCG, Quant < 2 mIU/mL Urine Color Yellow Urine Appearance Clear Urine pH 5.5 (5.0-9.0) Ur Specific [place] >= 1.030 H (1.005-1.025) Urine Protein 30 (1+) H (Neg-Trace) mg/dL Urine Glucose (UA) Negative (Negative) mg/dL Urine Ketones Negative (Negative) mg/dL Urine Blood Small (1+) H (Negative) Urine Nitrite Positive H (Negative) Ur Leukocyte Esterase Small (1+) H (Negative) Urine RBC 3-5 H (0-2) /HPF Urine WBC 21-50 H (0-5) /HPF Ur Squamous Epith Cells 3-5 (0-2) /HPF Urine Bacteria 4+ (None Seen) Hyaline Casts 0-2 (0-2) /LPF Urine Opiates Screen Not Detected (Not Detect) Urine Fentanyl Screen POSITIVE H (Not Detect) Ur Barbiturates Screen Not Detected (Not Detect) Ur Phencyclidine Scrn Not Detected (Not Detect) Ur Amphetamines Screen Not Detected (Not Detect) U Benzodiazepines Scrn POSITIVE H (Not Detect) Urine Cocaine Screen POSITIVE H (Not Detect) U Marijuana (THC) Screen Not Detected (Not Detect) COVID-19 (RENATO) Negative (Negative) COVID-19 Clin Com See Note Influenza Type A (ARIAN) Negative (Negative) Influenza Type B (ARIAN) Negative (Negative) Influenza A & B Note See Note Independent Interpretation I performed an independent interpretation of an: Plain X-Ray and CT Scan Interpretation: CXR showing right basilar opacity, agree with radiologist's interpretation. CT lumbar spine without acute pathology, agree with radiologist's interpretation. Radiology Impression Discussion of test interpretation with radiology: I have reviewed the radiologist's reading. Radiologist Impression: XR chest 1V IMPRESSION: Hazy right basilar opacity concerning for developing consolidation in the setting of fever. Radiographic followup after treatment/resolution of symptoms is recommended. CT lumbar spine w IV con IMPRESSION: No acute findings identified. If clinically warranted, MRI would provide better assessment for potential osteomyelitis. Independent Historian Clinical information obtained from an independent historian. History obtained from or confirmed by: EMS External Record Review External record reviewed: Inpatient record, Office record, Outpatient record, Prior outpatient labs, Prior outpatient radiology, Primary care record and Outside ED record Prescription Management I considered prescription management with: Pain Medication and Antibiotic Chronic Conditions Patient?s care impacted by: Other (IVDU) Social Determinants Patient?s care significantly limited by Social Determinants of Health including: Inadequate housing, Low income, Problems related to employment and Other Social Determinant of Health Critical Care Time Critical Care Time Critical Care Time: No Total Critical Care Time: 45 Attestation: Critical care time in the amount of 45 minutes has been provided to the patient in terms of direct patient care, frequent reevaluation, consultation with hospitalist, review and interpretation of medical data and results, and management of potentially life-threatening conditions. This is all outside of any medical procedures. Discharge Plan Discharge Clinical Impression: Pneumonia Qualifiers: Pneumonia type: due to unspecified organism Laterality: right Lung location: l ower lobe of lung Qualified Code(s): J18.9 - Pneumonia, unspecified organism Patient Disposition: Admitted As Inpatient Interventions: Admission Worksheet (ED) Last Done: 08/22/23 17:24 Discharge Date/Time: 08/22/23 17:24
[2023-08-22 10:35] LABS: Appearance Urine Clear; Color Urine Yellow; Glucose Urine UA Negative (Negative); Leukocyte Esterase Urine Small (1+) (Negative); Nitrite Urine Positive (Negative); PH 5.5 (5.0-9.0); Specific Gravity - Urine >= 1.030 (1.005-1.025); UMIC TRIGGER UACC YES; Urine Blood Small (1+) (Negative); Urine Ketones Negative (Negative); Urine Protein 30 (1+) mg/dL (Neg-Trace)
[2023-08-22 10:41] LABS: Amphetamine Screen Urine Not Detected (Not Detect); Barbiturates, Urine Not Detected (Not Detect); Benzodiazepines Screen Urine POSITIVE (Not Detect); Cannabinoid Screen Urine Not Detected (Not Detect); Cocaine Screen Urine POSITIVE (Not Detect); Fentanyl, urine POSITIVE (Not Detect); Opiate Screen Urine Not Detected (Not Detect); Phencyclidine Screen Urine Not Detected (Not Detect)
[2023-08-22 10:42] LABS: Bacteria Urine 4+ (None Seen); Hyaline Casts Urine 0-2 /LPF (0-2); UACC Culture Trigger YES; WBC Urine 21-50 /HPF (0-5)
--- NOTE | 2023-08-22 11:13 | P.HPHOSP_ITS ---
History of Present Illness Date of Service: 08/22/23 Attending physician on admission: Kervin Bosch Chief Complaint: NATION, fever, lower back pain Pt is a 38-year-old female with a PMH significant for IVDU and migraines who presents to the ED with?fever, headache, and lower back pain x9 days. Patient has a long history of IVDU primarily cocaine but also occasionally heroin. Says last used around a week ago and has been using prior to symptom onset. Patient states she developed a low-grade fever she measured at 100.5 and 101.3 degrees, indent experienced headache and lower back pain on her left side. States pain does not radiate, and has been significantly worsening, worse with movement. Says she came to the ED this morning since yesterday pain was so bad she could not move out of bed. Denies numbness, tingling in lower extremities. Patient also complains of mildly increased shortness of breath and cough, but patient notes she has been trying not to cough due to pain and her back. Also complains of right shoulder pain, unclear exactly when it began. Patient denies any recent falls, trauma/injury to either shoulder or lower. Denies any urinary symptoms: Polyuria, dysuria. Says she has not been eating or drinking normally for the past few days. She reports taking methadone 100 mg daily with last dose taken yesterday on 08/21/2023. Patient denies chest pain/pressure, palpitations. No nausea, vomiting, abdominal pain. In the ED patient with low-grade temps as high as 100.5, tachycardic up to 101, tachypneic up to 22, and hypotensive as low as 87/49. Labs were significant for H&H 11.7/34.7, ESR 78, sodium 131, alk-phos 177, C reactive protein 41.73. UA positive for UTI. Tox screen positive for fentanyl, benzos, and cocaine. CXR showed hazy right basilar opacity concerning for developing consolidation in the setting of fever. CT of lumbar spine with no acute findings, MRI suggested for better assessment. Pt was treated with hydromorphone, ketorolac, IVF x3L, ceftriaxone, and vancomycin. Pt will be admitted to the hospital for treatment and further evaluation of severe sepsis in the setting of pneumonia and possible spinal epidural abscess. Review of Systems 2 Review of Systems: Lower back pain Fever, headache Increased shortness of breath, cough Right shoulder pain Denies chest pain/pressure, palpitations No nausea, vomiting, abdominal pain PMFSH Medical History Scabies Social History Alcohol intake: never Smoked in Last 30 Days: Yes Use of substances other than those prescribed or required for medical reasons: Yes Substance Use Type: Crack/Cocaine and Heroin Advance Directives: No Advance Directives Information Provided: No Patient : No Meds Allergies Allergy/AdvReac Type Severity Reaction Status Date / Time No Known Allergies Allergy Verified 12/14/21 15:29 Home Medications Medication Instructions Recorded Confirmed Last Taken Type No Known Home Meds 08/22/23 08/22/23 Unknown History Physical Exam 2 Vital Signs and Narrative: Vital Signs: Last Vital Signs Temp 98.2 F 08/22/23 05:52 Pulse 76 08/22/23 10:00 Resp 20 08/22/23 10:00 BP 96/62 08/22/23 10:00 Pulse Ox 99 08/22/23 10:00 O2 Del Method Room Air 08/22/23 10:00 BMI result Body Mass Index 26.3 Constitutional: Alert but somnolent, drifting in of sleep. Cooperative, answering questions appropriately. Uncomfortable looking but in no acute distress. Mental Status: Oriented to person, place and time. Eyes: Pupils are equal, round, and reactive to light. Ear, Nose, and Throat: Oropharynx clear, mucous membranes moist. Ears and nose without deformities. Trachea midline. Respiratory: Clear to auscultation bilaterally. No wheezing, rales, or rhonchi. Cardiovascular: S1, S2 regular. No murmurs, rubs, or gallops. Gastrointestinal: Abdomen soft, non-tender, non-distended. Normal bowel sounds. Neurologic: Cranial nerves II-XII are grossly intact bilaterally. No focal neurological deficits. Moves all extremities spontaneously. Reduced strength of lower right extremity, 2/5. Reduced strength of lower left extremity, 1/5. Sensation to light touch intact of upper and lower extremities bilaterally. Skin: Warm, dry. Musculoskeletal: Right shoulder tender to palpation. Back: Left paraspinous muscles of lumbar region exquisitely tender to palpation. Extremities: No edema. Multiple track jimenez on pt's upper extremities bilaterally. Psychiatric: Normal mood and affect. Results Labs 08/22/23 03:59 08/22/23 03:59 Labs: Laboratory Results - last 24 hr 08/22/23 08/22/23 08/22/23 02:43 03:59 10:23 MCV 83.6 MCH 28.3 MCHC 33.8 RDW 12.6 Plt Count 167 MPV 10.5 Immature Gran % (Auto) 1.6 H Neut % (Auto) 79.9 H Lymph % (Auto) 8.7 L [place] % (Auto) 9.3 Eos % (Auto) 0.2 Baso % (Auto) 0.3 Lymph # (Auto) 0.5 L [place] # (Auto) 0.6 Eos # (Auto) 0.0 Baso # (Auto) 0.0 Abs Immat Gran (auto) 0.10 H Absolute Neuts (auto) 5.0 Absolute Nucleated RBC 0.000 Nucleated RBC % (auto) 0.0 ESR 78 H Anion Gap 16 Estim Creat Clear Calc 101.7 Estimated GFR > 60 Random Glucose 116 H Lactic Acid 1.4 Calcium 8.5 Magnesium 2.3 Total Bilirubin 0.7 Direct Bilirubin 0.4 AST 25 ALT 18 Alkaline Phosphatase 177 H C-Reactive Protein 41.73 H Total Protein 7.0 Albumin 2.8 L Beta HCG, Quant < 2 Urine Color Yellow Urine Appearance Clear Urine pH 5.5 Ur Specific [place] >= 1.030 H Urine Protein 30 (1+) H Urine Glucose (UA) Negative Urine Ketones Negative Urine Blood Small (1+) H Urine Nitrite Positive H Ur Leukocyte Esterase Small (1+) H Urine RBC 3-5 H Urine WBC 21-50 H Ur Squamous Epith Cells 3-5 Urine Bacteria 4+ Hyaline Casts 0-2 Urine Opiates Screen Not Detected Urine Fentanyl Screen POSITIVE H Ur Barbiturates Screen Not Detected Ur Phencyclidine Scrn Not Detected Ur Amphetamines Screen Not Detected U Benzodiazepines Scrn POSITIVE H Urine Cocaine Screen POSITIVE H U Marijuana (THC) Screen Not Detected COVID-19 (RENATO) Negative COVID-19 Clin Com See Note Influenza Type A (ARIAN) Negative Influenza Type B (ARIAN) Negative Influenza A & B Note See Note Imaging Radiologist's Impressions: Impressions Chest X-Ray 08/22/23 03:12 IMPRESSION: Hazy right basilar opacity concerning for developing consolidation in the setting of fever. Radiographic followup after treatment/resolution of symptoms is recommended. Lumbar Spine CT 08/22/23 05:01 IMPRESSION: No acute findings identified. If clinically warranted, MRI would provide better assessment for potential osteomyelitis. Assessment and Plan (1) Pneumonia: Qualifiers: Pneumonia type: due to unspecified organism Laterality: right Lung location: lower lobe of lung Qualified Code(s): J18.9 - Pneumonia, unspecified organism Status: Acute Plan Pt is a 38-year-old female with a PMH significant for IVDU and migraines who presents to the ED with?fever, headache, and lower back pain x9 days. Pt will be admitted to the hospital for treatment and further evaluation of severe sepsis in the setting of pneumonia and possible spinal epidural abscess. Severe sepsis in the setting of pneumonia, possible spinal epidural abscess Patient with low-grade fever, severe headache, and severe lower back pain Patient with long history of IVDU, primarily cocaine; elevated CRP, ESR CXR with hazy right basilar opacity concerning for developing consolidation CT of lumbar spine with no acute findings Patient meets sepsis criteria: Pneumonia, tachypnea, tachycardia, hypotension; lactic acid WNL at 1.4 Pt given 3L IVF in ED, started on broad-spectrum abx Continue vanco and ceftriaxone, started 08/22/[address] on maintenance fluids Will get MRI of lumbar spine wo/w contrast Analgesics for pain management Question of pneumonia CXR with easy right basilar opacity concerning for developing consolidation Patient reports increased SOB, occasional cough Patient being treated with broad-spectrum antibiotics Hypotension BP as low as 83/56, currently 96/62 Patient received 3L IVF in ED Will place on maintenance fluids Follow BP Hyponatremia Sodium mildly low at 131 Patient received IVF in ED Follow-up BMP UTI UA positive for UTI Ceftriaxone, started 08/22/2023 Follow cultures Right shoulder pain Unclear etiology: Patient denies trauma or injury to the area, CXR negative for acute fracture, ?Referred pain Analgesics for pain management IVDU Patient with long history of IV cocaine use Reports being on methadone 100 mg daily, last took yesterday on 08/21/2023 Addiction Medicine consult Full Code Attending:?Dr. Boshc DVT Prophylaxis: Lovenox Pt will require a hospitalization of at least two nights for treatment of?severe sepsis in the setting of pneumonia and possible spinal epidural abscess with IV antibiotics, IVF, and close monitoring. Time Spent With Patient Time: Total time managing care of this patient today ____ minutes. Quality Stroke Does the patient have a stroke diagnosis?: No VTE Prior VTE?: No VTE Risk Level:: Medical - moderate - high VTE Device Contraindication: Treatment Not Indicated VTE Drug Contraindication: N/A - Med Ordered
--- NOTE | 2023-08-22 11:32 | PHA.MEDREC ---
Pharmacy Consult ? Medication Reconciliation Pharmacy has completed the medication reconciliation.
--- NOTE | 2023-08-22 12:36 | PHA.PROG ---
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 Weight in k.5 kg Adjusted body weight in Kg: [place] body weight in Kg: Obesity Dosing Indication % IBW: Serum Creatinine - Last 168 Hours 08/22/23 03:59 Creatinine 0.71 Estimated CrCl and GFR - Last 168 Hours 08/22/23 03:59 Estim Creat Clear Calc 101.7 Estimated GFR > 60 Vancomycin Loading Dose: 1750 Current Vancomycin Dosing Regimen: 1000 Q12H Vancomycin Monitoring using AUC goal of 400 - 600 range with trough as surrogate marker: AUC 452, TROUGH 13.2 Date and Time for next Vancomycin Level to be drawn: 08/23@ 1600 Pharmacist Comments on Vancomycin Plan: Vancomycin dosing will take advantage of [employer] as a clinical decision support tool that uses Bayesian modeling to calculate individual patient's pharmacokinetic parameters and forecast the patient's drug concentration time course with the target goal AUC 24 range of 400 - 600 mg/L/hr.
--- NOTE | 2023-08-22 13:10 | ECG_ITS ---
Test Reason : Baseline Blood Pressure : / mmHG Vent. Rate : 086 BPM Atrial Rate : 086 BPM P-R Int : 124 ms QRS Dur : 088 ms QT Int : 374 ms P-R-T Axes : 057 -09 031 degrees QTc Int : 447 ms Normal sinus rhythm Low voltage QRS Borderline ECG No previous ECGs available Referred By: Neto Odonnell Electronically Signed By:RADHA HILARIO
[2023-08-22] MEDS: 0.9 % Sodium Chloride 1,000 ML 100 ML IVCONT ×2 (13:22→20:42)
[2023-08-22] MEDS: Enoxaparin Sodium 40 MG/0.4 ML SYRINGE SUBCUT (13:23)
--- NOTE | 2023-08-22 13:25 | PC.NURSE ---
NS infusing per MAr. pt reporting sever 7-8 out of 10 pain.
[2023-08-22] MEDS: HYDROmorphone HCl 1 MG/ML SYRINGE 0.5 MG IVPUSH ×2 (13:32→18:31)
--- NOTE | 2023-08-22 13:37 | PC.NURSE ---
pt medicated with PRN Dilaudid per orders for 06/30 pain
[2023-08-22] MEDS: methADONE HCl 20 MG/2 ML ORAL.CONC 70 MG PO (14:39)
--- NOTE | 2023-08-22 14:40 | MHC.RECOVRN ---
Met with pt in ED16 after consult placed to Addiction Medicine for substance use and on methadone 100 mg daily, took yesterday. Pt had presented to the ED not feeling well and was subsequently admitted to the hospital for treatment and further evaluation of severe sepsis in the setting of pneumonia and possible spinal epidural abscess. Pt laying in bed, awake, alert, wincing in pain, attempting to move onto her side. T/w assisted with repositioning. Pt difficult to engage in conversation due to pain, did report 100 mg methadone daily through [facility] and has not received a dose today. Pt requesting methadone dose. T//w spoke with JAVIER Mccauley, at [facility] who states pt last received a dose in the [facility] on 08/15/23, 100 mg. Pt also received 3 take home bottles of 100 mg methadone. Discussed with Kimi Olsen APRN; plan to administer 70 mg methadone and re-evaluate.
--- NOTE | 2023-08-22 14:44 | PC.NURSE ---
pt had HR increase from 70s/80s to 119. Pt shivery, uncomfortable, and mildly febrile 99.7 PA notified. Methadone dose verified and dose given per MAR. pos BC result received and communicated to PA
--- NOTE | 2023-08-22 14:58 | PC.NURSE ---
methadone dose given, pt resting more comfortably at this time
--- NOTE | 2023-08-22 15:15 | PC.NURSE ---
this nurse took over care of patient from [facility] at 1500, will assess patient shortly.
--- NOTE | 2023-08-22 15:29 | PC.NURSE ---
pt currently sleeping, vitals previously stable, quality assurance monitor chassis intact sinus tach on monitor, ivf running per order, call bishop within reach, will continue to monitor
--- NOTE | 2023-08-22 16:51 | PC.NURSE ---
pt medicated with tylenol for fever
--- NOTE | 2023-08-22 16:54 | PC.NURSE ---
per MRI, pt will hopefully got to MRI for 5pm, pt belongings list has been completed, report has been given to floor, awaiting MRI to give the ok to have pt brought to them.
[2023-08-22] MEDS: LORazepam 2 MG/ML VIAL 1 MG IVPUSH (18:30)
--- NOTE | 2023-08-22 18:50 | MHC.RECOVRN ---
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 Pt awaiting MRI, pt had just received Dilaudid and BZO to complete MRI. Pt resting comfortably. MRI staff reported pt had just received the med, will be performing MRI shortly.
--- NOTE | 2023-08-22 19:20 | P.EN_ITS ---
Event Note Date of Service: 08/22/23 Event Note: Addiction consult placed for patient with OUD being admitted with pneumonia and question of epidural abscess. Seen by supervisor of way while in ED, verified methadone dose and engagement in treatment at [facility]. Plan: -methadone restarted at 70mg today -85mg tomorrow +10HS -will continue to follow Time Spent With Patient Time: Total time managing care of this patient today ____ minutes.
[2023-08-22] MEDS: gadobutroL 7.5 ML VIAL IVPUSH (19:56)
[2023-08-22] MEDS: vancomycin HCL 1,000 MG in 0.9 % Sodium Chloride 250 ML 270 MG IV (20:42)
[2023-08-23] VITALS (7 sets, daily range): BP systolic 110–122; BP diastolic 60–66; PULSE 88–112; RESP 17–18; TEMP 36.6–37.9; O2SAT 95–96
[2023-08-23] MEDS: HYDROmorphone HCl 1 MG/ML SYRINGE 0.5 MG IVPUSH ×3 (01:10→15:41)
[2023-08-23] MEDS: Acetaminophen 325 MG TABLET 650 MG PO ×2 (03:59→17:39)
--- NOTE | 2023-08-23 05:00 | ECG_ITS ---
Test Reason : low potassium Blood Pressure : / mmHG Vent. Rate : 103 BPM Atrial Rate : 103 BPM P-R Int : 118 ms QRS Dur : 094 ms QT Int : 306 ms P-R-T Axes : 026 -06 042 degrees QTc Int : 400 ms Sinus tachycardia Low voltage QRS Nonspecific T wave abnormality Abnormal ECG When compared with ECG of 22-AUG-2023 13:11, Nonspecific T wave abnormality now evident in Lateral leads Referred By: Devika Martins Electronically Signed By:RADHA HILARIO
[2023-08-23] MEDS: 0.9 % Sodium Chloride 1,000 ML 100 ML IVCONT ×2 (05:10→16:34)
[2023-08-23] MEDS: cefTRIAXone sodium 2 GM in 0.9 % Sodium Chloride 50 ML IV (05:11)
--- NOTE | 2023-08-23 07:00 | CA_ITS ---
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 - The left ventricular systolic function is normal. The visually estimated ejection fraction is between 55-60%. - Echodensity attached to the tricuspid valve leaflet 1.7 x 1.2cm. Suggestive of vegetation. - There is mild tricuspid valve regurgitation. Findings Procedure Information The study quality is limited by the patients inability to tolerate the test. Left Ventricle Normal left ventricular cavity size. The left ventricular systolic function is normal. The visually estimated ejection fraction is between 55-60%. There is no evidence of regional wall motion abnormalities. Right Ventricle Normal right ventricular cavity size and systolic function. Atria Both atria are normal in size. Aortic Valve There is a normal trileaflet aortic valve. There is no aortic valve stenosis. There is no aortic valve regurgitation. Mitral Valve The mitral valve appears normal. There is no mitral valve regurgitation. There is no mitral valve stenosis. Pulmonic Valve The pulmonic valve is likely normal. Tricuspid Valve There is mild tricuspid valve regurgitation. Echodensity attached to the tricuspid valve leaflet 1.7 x 1.2cm. Suggestive of vegetation. Great Vessels The asc aorta is normal in size. Venous The inferior vena cava was not well visualized. Pericardium/Pleural There is no evidence of pericardial effusion. Prior Study Comparison No prior study available for comparison. Measurements 2D Linear Measurements IVSd: 0.68 0.6-0.9/0.6-1.0 cm LVIDd: 5.04 3.9-5.3/4.2-5.9 cm LVIDd Index: 2.78 2.4-3.2/2.2-3.1 cm/m2 LVIDs: 3.20 2.0-3.6 cm LVPWd: 0.80 0.7-1.1 cm LA Diam: 3.40 2.7-3.8/3.0-4.0 cm LAIDs Index: 1.88 1.5-2.3 cm/m2 LV Mass: 155.37 67-162/88-224 g LV Mass Index: 85.84 43-95/49-115 g/m2 LVOT Diam: 1.80 3.0+(-)1.3 cm Aortic Valve AoV Pk Laith: 1.71 AoV Mn Laith: 1.18 AoV VTI: 0.27 AoV Pk Grad: 12.00 Aov Mn Grad: 7.00 LILY Cont.VTI: 2.16 LVOT LVOT Pk Laith: 1.22 LVOT Mn Laith: 0.86 LVOT VTI: 0.23 LVOT Pk Grad: 6.00 LVOT Mn Grad: 3.00 LVOT Diam: 1.80 LVOT Area: 2.54 Tricuspid Valve TR Pk Laith: 2.35 TR Pk Grad: 22.00 Great Vessels Aorta Sinus of Valsalva: 3.40 2.0-3.5 cm Ao Asc: 3.20 2.1-3.4 cm Pulmonary Valve PV Pk Laith: 1.37 Peak PV Grad: 8.00 Updated in Other Vendor System with Status of Final Leeroy Gavin MD electronically signed on 08/23/2023 1:18:36 PM with status of Final
[2023-08-23 07:05] LABS: Mean Corpuscular HGB Conc 33.3 g/dl (31.0-35.0); Mean Corpuscular Hemoglobin 28.6 pg (27.0-33.0); Mean Corpuscular Volume 85.7 fL (80.0-98.0); Mean Platelet Volume 12.3 fL (9.4-12.3); Platelet Count 132 X10*3/uL (160-400); Red Cell Distribution Width 13.1 % (11.0-16.0); White Blood Count 6.9 X10*3/uL (4.8-10.8)
[2023-08-23 07:30] LABS: Anion Gap 12 (12-20); Blood Urea Nitrogen 11 mg/dL (9-16); Calcium 7.4 mg/dL (8.4-10.2); Carbon Dioxide 21 mmol/L (22-29); Chloride 103 mmol/L (96-108); Creatinine Clr Calc Pharmacy 131.9; Estimated Glomerular Filt Rate > 60; Glucose Random 111 mg/dL (60-115); Potassium 3.1 mmol/L (3.3-5.1); Sodium 133 mmol/L (135-145)
[2023-08-23] MEDS: vancomycin HCL 1,000 MG in 0.9 % Sodium Chloride 250 ML 270 MG IV (08:21)
[2023-08-23] MEDS: methADONE HCl 20 MG/2 ML ORAL.CONC 85 MG PO (08:21)
--- NOTE | 2023-08-23 08:59 | HO.PM.IMPN ---
Subjective Subjective Date of Service: 08/23/23 Interval History: weakness, back pain Physical Exam Vital Signs: Vital Signs: Last Vital Signs Temp 97.8 F 08/23/23 06:58 Pulse 92 08/23/23 06:58 Resp 17 08/23/23 06:58 BP 117/61 08/23/23 06:58 Pulse Ox 95 08/23/23 06:58 O2 Del Method Room Air 08/23/23 06:58 BMI result Body Mass Index 28.6 lethargic oriented times 3, ill appearing, track jimenez Objective Data Active Medications Acetaminophen (Acetaminophen 325 Mg Tablet) 650 mg PO Q6H PRN PRN Reason: Pain, Mild (Pain Scale 1-3) Last Admin: 08/23/23 03:59 Dose: 650 mg Documented By: CATHI Docusate Sodium (Docusate Sodium 100 Mg Capsule) 100 mg PO DAILY PRN PRN Reason: Constipation Enoxaparin Sodium (Enoxaparin Sodium 40 Mg/0.4 Ml Syringe) 40 mg SUBCUT Q24H [facility] Last Admin: 08/22/23 13:23 Dose: 40 mg Documented By: MARBELLA Hydromorphone HCl (Hydromorphone Hcl 1 Mg/Ml Syringe) 0.5 mg IVPUSH Q4H PRN; Protocol PRN Reason: Pain, Severe (Pain Scale 7-10) Last Admin: 08/23/23 01:10 Dose: 0.5 mg Documented By: CATHI Ceftriaxone Sodium 2 gm/ (Sodium Chloride) 50 mls @ 100 mls/hr IV Q24H [facility] Last Infusion: 08/23/23 05:58 Dose: Infused Documented By: CATHI Sodium Chloride (Ns) 1,000 mls @ 100 mls/hr IVCONT .Q10H [facility] Last Admin: 08/23/23 05:10 Dose: 100 mls/hr Documented By: CATHI Vancomycin HCl 1,000 mg/ (Sodium Chloride) 270 mls @ 270 mls/hr IV Q12H [facility] Last Admin: 08/23/23 08:21 Dose: 270 mls/hr Documented By: VALENTIN Methadone HCl (Methadone Hcl 20 Mg/2 Ml Oral.Conc) 85 mg PO DAILY [facility] Last Admin: 08/23/23 08:21 Dose: 85 mg Documented By: VALENTIN Ondansetron HCl (Ondansetron Hcl 4 Mg/2 Ml Vial) 4 mg IVPUSH Q8H PRN PRN Reason: Nausea and Vomiting Pharmacy Consult (Consult Rx Vancomycin Dosing) 1 each MISCELLANE DAILY PRN PRN Reason: Consult order Sodium Chloride (0.9 % Sodium Chloride Flush 3 Ml Syringe) 3 ml IVFLUSH QSHIFT [facility] Last Admin: 08/23/23 08:22 Dose: Not Given Documented By: VALENTIN Non-Admin Reason: IV Running Labs 08/23/23 05:55 08/23/23 05:55 Labs: Laboratory Results - last 24 hr 08/22/23 08/23/23 10: 05:55 MCV 85.7 MCH 28.6 MCHC 33.3 RDW 13.1 Plt Count 132 L MPV 12.3 Absolute Nucleated RBC 0.000 Nucleated RBC % (auto) 0.0 Anion Gap 12 Estim Creat Clear Calc 131.9 Estimated GFR > 60 Random Glucose 111 Calcium 7.4 L D Urine Color Yellow Urine Appearance Clear Urine pH 5.5 Ur Specific [place] >= 1.030 H Urine Protein 30 (1+) H Urine Glucose (UA) Negative Urine Ketones Negative Urine Blood Small (1+) H Urine Nitrite Positive H Ur Leukocyte Esterase Small (1+) H Urine RBC 3-5 H Urine WBC 21-50 H Ur Squamous Epith Cells 3-5 Urine Bacteria 4+ Hyaline Casts 0-2 Urine Opiates Screen Not Detected Urine Fentanyl Screen POSITIVE H Ur Barbiturates Screen Not Detected Ur Phencyclidine Scrn Not Detected Ur Amphetamines Screen Not Detected U Benzodiazepines Scrn POSITIVE H Urine Cocaine Screen POSITIVE H U Marijuana (THC) Screen Not Detected Microbiology Microbiology Results: Microbiology 08/22/23 04:10 Blood Culture - Preliminary Blood - Venous Prelim: GPC Gram Stain only 08/22/23 03:59 Blood Culture - Preliminary Blood - Venous Prelim: GPC Gram Stain only Assessment and Plan (1) Pneumonia: Status: Acute Plan 38F PMH IVDA presented with fevers and back pain Severe sepsis due to bacteremia from IV drug use complicated by pneumonia and possible septic facet arthritis Continue vancomycin, follow-up cultures, follow-up echo Infectious disease eval Opiate dependence with withdrawal Addiction team following On methadone Mild hyponatremia, hypokalemia Monitor replace k UTI Ceftriaxone, follow-up cultures DVT prophylaxis with Lovenox Full code Reason for continued hospitalization: Bacteremia Time Spent With Patient Time: Total time managing care of this patient today ____ minutes. Quality Stroke Does the patient have a stroke diagnosis?: No VTE Prior VTE?: No VTE Risk Level:: Medical - moderate - high VTE Device Contraindication: Treatment Not Indicated VTE Drug Contraindication: N/A - Med Ordered
[2023-08-23] MEDS: Potassium Chloride ER 20 MEQ TAB.ER.PRT 40 MEQ PO (09:29)
--- NOTE | 2023-08-23 13:03 | MHC.CM.PN ---
pt lives with her chepe at [facility] in [place] she goes to [facility] for her methadone pt states that she lives only with her chepe no children are there she reports kim children ages 8,10 1nd 12 live with their mother
[2023-08-23] MEDS: ceFAZolin Sodium/Dextrose,Iso 2 GM/50 ML PIGGYBACK IV ×2 (13:22→23:54)
[2023-08-23] MEDS: Enoxaparin Sodium 40 MG/0.4 ML SYRINGE SUBCUT (13:22)
[2023-08-23] MEDS: HYDROmorphone HCl 2 MG TABLET PO ×2 (13:58→21:11)
--- NOTE | 2023-08-23 14:29 | MHC.RECOVRN ---
Met with pt in 377 to check in. Pt sitting in bed, awake, alert, wincing in pain. Pt states If I could walk out of here I would. Pt reports pain is not being managed effectively. Kimi Olsen APRN, aware.
[2023-08-23 20:18] LABS: Vancomycin Random 5.6 mcg/mL (15-20)
--- NOTE | 2023-08-23 20:22 | HO.ADDICTCON ---
History of Present Illness Date of Service: 08/23/2023 Chief Complaint: fever, lower back pain, ?spinal epidural abscess Reason for Consult: OUD HPI Narrative: Patient is a 38 year old female with OUD currently medically admitted with pneumonia and endocarditis. Unable to gather any information from patient as she was very uncomfortable Methadone has been restarted at 85mg in AM and 15mg in evening Review of Systems Review of Systems Yes Unobtainable due to mental condition Diagnostics Vital Signs (24Hr): Vital Signs - 24 hr 08/23/23 01:18 08/23/23 03:45 08/23/23 05:15 Temperature 99 F 100.2 F 98.8 F Pulse Rate 112 H Respiratory Rate 18 Blood Pressure 122/60 Pulse Oximetry 95 Oxygen Delivery Method Room Air 08/23/23 06:58 08/23/23 16:00 08/23/23 19:02 Temperature 97.8 F 100.2 F 99.4 F Pulse Rate 92 99 Respiratory Rate 17 18 Blood Pressure 117/61 110/66 Pulse Oximetry 95 95 Oxygen Delivery Method Room Air Room Air 08/23/23 20:00 Temperature 98.6 F Pulse Rate 88 Respiratory Rate 18 Blood Pressure 111/60 Pulse Oximetry 96 Oxygen Delivery Method Room Air BMI result Body Mass Index 28.6 Labs 08/23/23 05:55 08/23/23 05:55 Labs: Laboratory Results - last 48 hr 08/22/23 08/22/23 08/22/23 02:43 03:59 10:23 WBC 6.2 RBC 4.14 L Hgb 11.7 L Hct 34.6 L MCV 83.6 MCH 28.3 MCHC 33.8 RDW 12.6 Plt Count 167 MPV 10.5 Immature Gran % (Auto) 1.6 H Neut % (Auto) 79.9 H Lymph % (Auto) 8.7 L [place] % (Auto) 9.3 Eos % (Auto) 0.2 Baso % (Auto) 0.3 Lymph # (Auto) 0.5 L [place] # (Auto) 0.6 Eos # (Auto) 0.0 Baso # (Auto) 0.0 Abs Immat Gran (auto) 0.10 H Absolute Neuts (auto) 5.0 Absolute Nucleated RBC 0.000 Nucleated RBC % (auto) 0.0 ESR 78 H Sodium 131 L Potassium 3.7 Chloride 95 L Carbon Dioxide 24 Anion Gap 16 BUN 14 Creatinine 0.71 Estim Creat Clear Calc 101.7 Estimated GFR > 60 Random Glucose 116 H Lactic Acid 1.4 Calcium 8.5 Magnesium 2.3 Total Bilirubin 0.7 Direct Bilirubin 0.4 AST 25 ALT 18 Alkaline Phosphatase 177 H C-Reactive Protein 41.73 H Total Protein 7.0 Albumin 2.8 L Beta HCG, Quant < 2 Urine Color Yellow Urine Appearance Clear Urine pH 5.5 Ur Specific [place] >= 1.030 H Urine Protein 30 (1+) H Urine Glucose (UA) Negative Urine Ketones Negative Urine Blood Small (1+) H Urine Nitrite Positive H Ur Leukocyte Esterase Small (1+) H Urine RBC 3-5 H Urine WBC 21-50 H Ur Squamous Epith Cells 3-5 Urine Bacteria 4+ Hyaline Casts 0-2 Random Vancomycin Urine Opiates Screen Not Detected Urine Fentanyl Screen POSITIVE H Ur Barbiturates Screen Not Detected Ur Phencyclidine Scrn Not Detected Ur Amphetamines Screen Not Detected U Benzodiazepines Scrn POSITIVE H Urine Cocaine Screen POSITIVE H U Marijuana (THC) Screen Not Detected COVID-19 (RENATO) Negative COVID-19 Clin Com See Note Influenza Type A (ARIAN) Negative Influenza Type B (ARIAN) Negative Influenza A & B Note See Note 08/23/23 08/23/23 05:55 19:53 WBC 6.9 RBC 3.50 L Hgb 10.0 L Hct 30.0 L MCV 85.7 MCH 28.6 MCHC 33.3 RDW 13.1 Plt Count 132 L MPV 12.3 Immature Gran % (Auto) Neut % (Auto) Lymph % (Auto) [place] % (Auto) Eos % (Auto) Baso % (Auto) Lymph # (Auto) [place] # (Auto) Eos # (Auto) Baso # (Auto) Abs Immat Gran (auto) Absolute Neuts (auto) Absolute Nucleated RBC 0.000 Nucleated RBC % (auto) 0.0 ESR Sodium 133 L Potassium 3.1 L Chloride 103 Carbon Dioxide 21 L Anion Gap 12 BUN 11 Creatinine 0.57 Estim Creat Clear Calc 131.9 Estimated GFR > 60 Random Glucose 111 Lactic Acid Calcium 7.4 L D Magnesium Total Bilirubin Direct Bilirubin AST ALT Alkaline Phosphatase C-Reactive Protein Total Protein Albumin Beta HCG, Quant Urine Color Urine Appearance Urine pH Ur Specific [place] Urine Protein Urine Glucose (UA) Urine Ketones Urine Blood Urine Nitrite Ur Leukocyte Esterase Urine RBC Urine WBC Ur Squamous Epith Cells Urine Bacteria Hyaline Casts Random Vancomycin 5.6 L Urine Opiates Screen Urine Fentanyl Screen Ur Barbiturates Screen Ur Phencyclidine Scrn Ur Amphetamines Screen U Benzodiazepines Scrn Urine Cocaine Screen U Marijuana (THC) Screen COVID-19 (RENATO) COVID-19 Clin Com Influenza Type A (ARIAN) Influenza Type B (ARIAN) Influenza A & B Note Imaging Radiology Impressions: ITS Impressions Chest X-Ray 08/22/23 03:12 IMPRESSION: Hazy right basilar opacity concerning for developing consolidation in the setting of fever. Radiographic followup after treatment/resolution of symptoms is recommended. Lumbar Spine CT 08/22/23 05:01 IMPRESSION: No acute findings identified. If clinically warranted, MRI would provide better assessment for potential osteomyelitis. Lumbar Spine MRI 08/22/23 19:55 IMPRESSION: 1. No evidence of epidural abscess. No evidence of discitis osteomyelitis. No spinal canal or neural foraminal stenosis. No nerve root compression. 2. Diffuse edema within the subcutaneous fat of the lower back and mild ill-defined paraspinal muscle edema centered about the L4-L5 level. Mild increased fluid in the right-sided L4-L5 facet joint with edema and enhancement seen in this region. Imaging could be degenerative or posttraumatic changes. Septic facet arthritis would have a similar imaging appearance. Mental Status Exam Mental Status Exam Level of Consciousness: Lethargic Medications Medications Current Medications Acetaminophen (Acetaminophen 325 Mg Tablet) 650 mg PO Q6H PRN PRN Reason: Pain, Mild (Pain Scale 1-3) Last Admin: 08/23/23 17:39 Dose: 650 mg Docusate Sodium (Docusate Sodium 100 Mg Capsule) 100 mg PO DAILY PRN PRN Reason: Constipation Enoxaparin Sodium (Enoxaparin Sodium 40 Mg/0.4 Ml Syringe) 40 mg SUBCUT Q24H [facility] Last Admin: 08/23/23 13:22 Dose: 40 mg Hydromorphone HCl (Hydromorphone Hcl 1 Mg/Ml Syringe) 0.5 mg IVPUSH Q4H PRN; Protocol PRN Reason: Pain, Severe (Pain Scale 7-10) Last Admin: 08/23/23 15:41 Dose: 0.5 mg Hydromorphone HCl (Hydromorphone Hcl 2 Mg Tablet) 2 mg PO Q6H [facility] Last Admin: 08/23/23 13:58 Dose: 2 mg Sodium Chloride (Ns) 1,000 mls @ 100 mls/hr IVCONT .Q10H [facility] Last Admin: 08/23/23 16:34 Dose: 100 mls/hr Vancomycin HCl 1,000 mg/ (Sodium Chloride) 270 mls @ 270 mls/hr IV Q12H [facility] Last Infusion: 08/23/23 09:31 Dose: Infused Cefazolin Sodium/Dextrose (Ancef) 2 gm in 50 mls @ 100 mls/hr IV Q8H [facility] Last Infusion: 08/23/23 14:01 Dose: Infused Methadone HCl (Methadone Hcl 20 Mg/2 Ml Oral.Conc) 85 mg PO DAILY [facility] Last Admin: 08/23/23 08:21 Dose: 85 mg Methadone HCl (Methadone Hcl 20 Mg/2 Ml Oral.Conc) 15 mg PO DAILY@2000 [facility] Ondansetron HCl (Ondansetron Hcl 4 Mg/2 Ml Vial) 4 mg IVPUSH Q8H PRN PRN Reason: Nausea and Vomiting Pharmacy Consult (Consult Rx Vancomycin Dosing) 1 each MISCELLANE DAILY PRN PRN Reason: Consult order Sodium Chloride (0.9 % Sodium Chloride Flush 3 Ml Syringe) 3 ml IVFLUSH QSHIFT [facility] Last Admin: 08/23/23 14:00 Dose: Not Given Allergies Allergies Allergy/AdvReac Type Severity Reaction Status Date / Time No Known Allergies Allergy Verified 12/14/21 15:29 Assessment & Plan Assessment & Plan (1) Opioid use disorder: Status: Acute Code(s): F11.90 - Opioid use, unspecified, uncomplicated Assessment and Plan: methadone dose continued and split to provide some comfort in the evenings discussed pain management with attending--based on opioid tolerance, patient will require higher doses of opioid pain medications--would be helpful to have both scheduled IV and PRN will continue to follow Total time managing care of this patient today ____ minutes. PMFSH Past Medical History Medical History Scabies Social History Social History Household Members: Spouse Housing: Homeless Do you presently have visiting nurse or other home services: No Alcohol intake: never Patient Tobacco Use Status: Never used Tobacco Smoked in Last 30 Days: Yes Use of substances other than those prescribed or required for medical reasons: No Substance Use Type: Crack/Cocaine and Heroin Currently Displaying Signs/Symptoms of Drug Intoxication Withdrawal: No Have you been hit, kicked, punched, or otherwise hurt by someone within the past year? If so, by whom?: No Do you feel safe in your current relationship?: Yes Is there a partner from a previous relationship who is making you feel unsafe now?: No Are you made to feel afraid or neglected: No Advance Directives: No Advance Directives Information Provided: No Do you have thoughts of harming others: None Do you have a plan to hurt others: No Plan Recently lost weight without trying: No Eating poorly because of decreased appetite: No Nutrition Risks: No Nutritional Risk Patient : No : No Poor oral hygiene: No service: No
[2023-08-23] MEDS: 0.9 % Sodium Chloride Flush 3 ML SYRINGE IVFLUSH (21:10)
[2023-08-23] MEDS: methADONE HCl 20 MG/2 ML ORAL.CONC 15 MG PO (21:12)
[2023-08-23] MEDS: vancomycin HCL 1,250 MG in 0.9 % Sodium Chloride 250 ML 166.67 MG IV (21:14)
--- NOTE | 2023-08-23 23:31 | P.CNID_ITS ---
History of Present Illness Data of Consult Service Date: 08/23/23 Requesting physician: Kervin Bosch Primary Care Provider: Unknown Physician HPI Reason for consult: fever of unknown origin,staph bacteremia,IVDA She presents with weakness and left hip pain over last two to three days. She has reported fever and lower back pain with MRI no OM but concern over septic facet joint. She uses IV drugs. She has hip pain moving left hip. She doesnt recall Hepatitis C or HIV. Review of Systems 2 Review of Systems: Yes all other systems are reviewed and are negative REPLACED BY [facility] Past Medical History Medical History (Updated 08/23/23 @ 23:34 by Snehal Vasquez MD) Staphylococcus aureus bacteremia Scabies Family History Family history: reviewed and not pertinent Social History Social History Household Members: Spouse Housing: Homeless Do you presently have visiting nurse or other home services: No Alcohol intake: never Patient Tobacco Use Status: Never used Tobacco Smoked in Last 30 Days: Yes Use of substances other than those prescribed or required for medical reasons: No Substance Use Type: Crack/Cocaine and Heroin Currently Displaying Signs/Symptoms of Drug Intoxication Withdrawal: No Have you been hit, kicked, punched, or otherwise hurt by someone within the past year? If so, by whom?: No Do you feel safe in your current relationship?: Yes Is there a partner from a previous relationship who is making you feel unsafe now?: No Are you made to feel afraid or neglected: No Advance Directives: No Advance Directives Information Provided: No Do you have thoughts of harming others: None Do you have a plan to hurt others: No Plan Recently lost weight without trying: No Eating poorly because of decreased appetite: No Nutrition Risks: No Nutritional Risk Patient : No : No Poor oral hygiene: No service: No Meds Allergies Allergy/AdvReac Type Severity Reaction Status Date / Time No Known Allergies Allergy Verified 12/14/21 15:29 Active Medications: Current Medications Acetaminophen (Acetaminophen 325 Mg Tablet) 650 mg PO Q6H PRN PRN Reason: Pain, Mild (Pain Scale 1-3) Last Admin: 08/23/23 17:39 Dose: 650 mg Docusate Sodium (Docusate Sodium 100 Mg Capsule) 100 mg PO DAILY PRN PRN Reason: Constipation Enoxaparin Sodium (Enoxaparin Sodium 40 Mg/0.4 Ml Syringe) 40 mg SUBCUT Q24H [facility] Last Admin: 08/23/23 13:22 Dose: 40 mg Hydromorphone HCl (Hydromorphone Hcl 1 Mg/Ml Syringe) 0.5 mg IVPUSH Q4H PRN; Protocol PRN Reason: Pain, Severe (Pain Scale 7-10) Last Admin: 08/23/23 15:41 Dose: 0.5 mg Hydromorphone HCl (Hydromorphone Hcl 2 Mg Tablet) 2 mg PO Q6H [facility] Last Admin: 08/23/23 21:11 Dose: 2 mg Sodium Chloride (Ns) 1,000 mls @ 100 mls/hr IVCONT .Q10H [facility] Last Admin: 08/23/23 16:34 Dose: 100 mls/hr Cefazolin Sodium/Dextrose (Ancef) 2 gm in 50 mls @ 100 mls/hr IV Q8H [facility] Last Infusion: 08/23/23 14:01 Dose: Infused Vancomycin HCl 1,250 mg/ (Sodium Chloride) 250 mls @ 166.667 mls/hr IV Q8H [facility] Last Admin: 08/23/23 21:14 Dose: 166.67 mls/hr Methadone HCl (Methadone Hcl 20 Mg/2 Ml Oral.Conc) 85 mg PO DAILY [facility] Last Admin: 08/23/23 08:21 Dose: 85 mg Methadone HCl (Methadone Hcl 20 Mg/2 Ml Oral.Conc) 15 mg PO DAILY@2000 [facility] Last Admin: 08/23/23 21:12 Dose: 15 mg Ondansetron HCl (Ondansetron Hcl 4 Mg/2 Ml Vial) 4 mg IVPUSH Q8H PRN PRN Reason: Nausea and Vomiting Pharmacy Consult (Consult Rx Vancomycin Dosing) 1 each MISCELLANE DAILY PRN PRN Reason: Consult order Sodium Chloride (0.9 % Sodium Chloride Flush 3 Ml Syringe) 3 ml IVFLUSH QSHIFT [facility] Last Admin: 08/23/23 21:10 Dose: 3 ml Home Medications Medication Instructions Recorded Confirmed Last Taken Type No Known Home Meds 08/22/23 08/22/23 Unknown History Physical Exam 2 Vital Signs: Vital Signs: Last Vital Signs Temp 98.6 F 08/23/23 20:00 Pulse 88 08/23/23 20:00 Resp 18 08/23/23 20:00 BP 111/60 08/23/23 20:00 Pulse Ox 96 08/23/23 20:00 O2 Del Method Room Air 08/23/23 20:00 BMI result Body Mass Index 28.6 Const: General: cooperative HEENT: Head: Yes normal to inspection Face and sinus: Yes normal facial exam Mouth: Normal oral and palatal mucosa present Teeth and gingiva: d entition normal Eyes: General: appearance normal, both eyes and all related structures P upils: Equal, round and reactive pupils present Resp: Effort & Inspection: normal respiratory effort Cardio: Rate: regular rate Rhythm: regular rhythm GI: Palpation (GI): Soft to palpation and nontender : General: Yes no CVA tenderness Back/Spine/Pelvis: Back: no CVA tenderness Skin: General skin exam: no rashes or lesions noted Neuro: General: moves all extremities Cranial nerves: Yes Equal, round and reactive pupils present Extrem: Other: pain on everting left hip General: Yes normal to inspection Psych: Appearance: grossly normal Results Labs 08/23/23 05:55 08/23/23 05:55 Labs: Short CBC 08/23/23 Range/Units 05:55 WBC 6.9 (4.8-10.8) X10*3/uL Hgb 10.0 L (12.0-16.0) g/dl Hct 30.0 L (37.0-47.0) % Plt Count 132 L (160-400) X10*3/uL BMP 08/23/23 05:55 Sodium 133 L Potassium 3.1 L Chloride 103 Carbon Dioxide 21 L BUN 11 Creatinine 0.57 Calcium 7.4 L D Microbiology Microbiology Results: Microbiology 08/22/23 04:10 Blood - Venous Blood Culture - Preliminary Staphylococcus aureus 08/22/23 Unknown Urine clean catch - Urine albrecht top Urine Culture - Preliminary Culture in progress. 08/22/23 03:59 Blood - Venous Blood Culture - Preliminary Staphylococcus aureus Assessment and Plan (1) Opioid use disorder: Status: Acute (2) Staphylococcus aureus bacteremia: Status: Acute She has possible hip source bacteremia and /or SI or lumbar facet infection. She has unknown HIV and Hepatitis C status. Plan Kefzol and Vancomycin while await sensitivity. Probable six weeks IV. Hepatitis C and HIV tests. Time Spent With Patient Time: Total time managing care of this patient today ____ minutes.
[2023-08-24] MEDS: HYDROmorphone HCl 2 MG TABLET PO ×4 (02:44→19:55)
[2023-08-24 03:34] VITALS: BP 139/71; PULSE 95; RESP 18; TEMP 37.6; O2SAT 97
[2023-08-24] MEDS: 0.9 % Sodium Chloride 1,000 ML 100 ML IVCONT (04:35)
[2023-08-24] MEDS: HYDROmorphone HCl 1 MG/ML SYRINGE 0.5 MG IVPUSH ×2 (05:23→09:49)
[2023-08-24] MEDS: ceFAZolin Sodium/Dextrose,Iso 2 GM/50 ML PIGGYBACK IV ×3 (05:29→22:04)
[2023-08-24] MEDS: vancomycin HCL 1,250 MG in 0.9 % Sodium Chloride 250 ML 166.67 MG IV ×2 (06:04→20:17)
[2023-08-24 06:49] VITALS: BP 120/68; PULSE 96; RESP 16; TEMP 36.1; O2SAT 98
[2023-08-24] MEDS: methADONE HCl 20 MG/2 ML ORAL.CONC 85 MG PO (08:25)
--- NOTE | 2023-08-24 10:46 | PM.CNCAR ---
History of Present Illness History of Present Illness Date of Service: 08/24/23 Chief complaint: fever, lower back pain, ?spinal epidural abscess Narrative: This is a cardiology consultation regarding endocarditis. Patient has a history of IV drug abuse. It seems that she was both cocaine as well as heroin. Current admission is for various symptoms including fever, headache, low back pain. In this context, she has been detected to have Staphylococcus aureus in blood cultures. On echocardiogram, detected to have tricuspid valve vegetation. Patient denies any prior history of cardiac issues. Currently, generalized feeling of being unwell. Lots of pains all over the body. Points to different parts of the body including legs, shoulders extra. Review of Systems Review of Systems: Yes all other systems are reviewed and are negative Constitutional: Constitutional: Reports as per HPI and Reports no additional constitutional complaints Eyes: Eyes: Reports as per HPI and Denies no additional eye complaints ENT: Denies system reviewed and no additional complaints, except as documented and Reports as per HPI Cardiovascular: Cardiovascular: Reports as per HPI, Reports no additional cardiovascular complaints, Denies acrocyanosis, Denies cool extremities, Denies chest pain, Denies leg edema, Denies lightheadedness, Denies palpitations and Denies dyspnea Respiratory: Respiratory: Reports as per HPI, Denies no additional respiratory complaints and Denies dyspnea Gastrointestinal: Gastrointestinal: Reports as per HPI and Denies no additional gastrointestinal complaints Genitourinary: Genitourinary: Reports as per HPI Musculoskeletal: Musculoskeletal: Reports no additional musculoskeletal complaints and Reports as per HPI Integumentary/Breasts: Skin/Breast: Reports system reviewed and no additional complaints, except as docu Neurologic: Reports system reviewed and no additional complaints, except as documented and Reports as per HPI Psychiatric: Psychiatric: Reports no additional psychiatric complaints and Reports as per HPI Endocrine: Endocrine: Reports no additional endocrine complaints, Reports as per HPI and Denies palpitations Hematologic/Lymphatic: Hematologic/Lymphatic: Reports no additional hematologic/lymphatic complaints and Reports as per HPI Allergic/Immunologic: Allergic/Immunologic: Reports no additional allergic/immunologic complaints and Reports as per HPI PMF Past Medical History Medical History (Updated 08/24/23 @ 10:51 by Leeroy Gavin MD) Staphylococcus aureus bacteremia Scabies Family History Pertinent family history: Patient denies any prior major cardiac issues in family. Family history: reviewed and not pertinent Social History Social History Household Members: Spouse Housing: Homeless Do you presently have visiting nurse or other home services: No Alcohol intake: never Patient Tobacco Use Status: Never used Tobacco Smoked in Last 30 Days: Yes Use of substances other than those prescribed or required for medical reasons: No Substance Use Type: Crack/Cocaine and Heroin Currently Displaying Signs/Symptoms of Drug Intoxication Withdrawal: No Have you been hit, kicked, punched, or otherwise hurt by someone within the past year? If so, by whom?: No Do you feel safe in your current relationship?: Yes Is there a partner from a previous relationship who is making you feel unsafe now?: No Are you made to feel afraid or neglected: No Advance Directives: No Advance Directives Information Provided: No Do you have thoughts of harming others: None Do you have a plan to hurt others: No Plan Recently lost weight without trying: No Eating poorly because of decreased appetite: No Nutrition Risks: No Nutritional Risk Patient : No : No Poor oral hygiene: No service: No Meds Allergies Allergy/AdvReac Type Severity Reaction Status Date / Time No Known Allergies Allergy Verified 12/14/21 15:29 Active Medications: Current Medications Acetaminophen (Acetaminophen 325 Mg Tablet) 975 mg PO TID SERGIO Docusate Sodium (Docusate Sodium 100 Mg Capsule) 100 mg PO DAILY PRN PRN Reason: Constipation Enoxaparin Sodium (Enoxaparin Sodium 40 Mg/0.4 Ml Syringe) 40 mg SUBCUT Q24H [facility] Last Admin: 08/23/23 13:22 Dose: 40 mg Hydromorphone HCl (Hydromorphone Hcl 1 Mg/Ml Syringe) 0.5 mg IVPUSH Q4H PRN; Protocol PRN Reason: Pain, Severe (Pain Scale 7-10) Last Admin: 08/24/23 09:49 Dose: 0.5 mg Hydromorphone HCl (Hydromorphone Hcl 2 Mg Tablet) 2 mg PO Q6H [facility] Last Admin: 08/24/23 08:26 Dose: 2 mg Sodium Chloride (Ns) 1,000 mls @ 100 mls/hr IVCONT .Q10H [facility] Last Admin: 08/24/23 04:35 Dose: 100 mls/hr Cefazolin Sodium/Dextrose (Ancef) 2 gm in 50 mls @ 100 mls/hr IV Q8H [facility] Last Infusion: 08/24/23 06:03 Dose: Infused Vancomycin HCl 1,250 mg/ (Sodium Chloride) 250 mls @ 166.667 mls/hr IV Q8H [facility] Last Infusion: 08/24/23 07:56 Dose: Infused Ibuprofen (Ibuprofen 600 Mg Tablet) 600 mg PO TIDWM [facility] Methadone HCl (Methadone Hcl 20 Mg/2 Ml Oral.Conc) 85 mg PO DAILY [facility] Last Admin: 08/24/23 08:25 Dose: 85 mg Methadone HCl (Methadone Hcl 20 Mg/2 Ml Oral.Conc) 15 mg PO DAILY@1999 [facility] Last Admin: 08/23/23 21:12 Dose: 15 mg Omeprazole (Omeprazole 20 Mg Capsule.Dr) 20 mg PO BID@629,1629 [facility] Ondansetron HCl (Ondansetron Hcl 4 Mg/2 Ml Vial) 4 mg IVPUSH Q8H PRN PRN Reason: Nausea and Vomiting Pharmacy Consult (Consult Rx Vancomycin Dosing) 1 each MISCELLANE DAILY PRN PRN Reason: Consult order Sodium Chloride (0.9 % Sodium Chloride Flush 3 Ml Syringe) 3 ml IVFLUSH QSHIFT [facility] Last Admin: 08/24/23 08:26 Dose: Not Given Home Medications Medication Instructions Recorded Confirmed Last Taken Type No Known Home Meds 08/22/23 08/22/23 Unknown History Physical Exam Vital Signs: Vital Signs: Last Vital Signs Temp 97 F 08/24/23 06:49 Pulse 96 08/24/23 06:49 Resp 16 08/24/23 06:49 BP 120/68 08/24/23 06:49 Pulse Ox 98 08/24/23 06:49 O2 Del Method Room Air 08/24/23 06:49 BMI result Body Mass Index 28.6 Const: General: comfortable and no acute distress Orientation/consciousness: patient oriented x3 HEENT: Other: Unremarkable Head: Yes normal to inspection Neck: Neck: Yes normal visual inspection Chest: Chest palpation & inspection: normal inspection of the chest Resp: Auscultation: clear to auscultation bilaterally Cardio: Palpation: normal PMI Heart sounds: S1 normal heart sound present, S2 normal heart sound present, no gallops, no murmurs and no rubs GI: Palpation (GI): Soft to palpation Back/Spine/Pelvis: Other: unremarkable Skin: General skin exam: no rashes or lesions noted Neuro: General: patient oriented x3 Extrem: General: Yes normal to inspection Psych: Mental Status: mental status grossly normal Objective Labs and Meds 08/23/23 05:55 08/23/23 05:55 Lab results: Laboratory Results - last 24 hr 08/23/23 19:53 Random Vancomycin 5.6 L ECG Interpretation: EKG with sinus tachycardia at 103/Min; low voltage QRS; nonspecific ST-T changes; normal GA and corrected QT. 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 No obvious abnormality in the left-sided valves. In the tricuspid valve vegetation noted. Mild tricuspid regurgitation. Imaging studies reviewed including lumbar spine CT and MRI. In the blood cultures, specimen from 08/22 positive for Staph aureus preliminary. Clinically, she does not have any overt embolic signs in her extremities. Also reviewed ID note. For right-sided endocarditis, recommend mainly treating with antibiotics for now. If her cultures come back recurrently positive then we will need to reassess. Discussed with Dr. Rm. Time Spent With Patient Time: Total time managing care of this patient today ____ minutes. Procedures Date of Service Date of Service: 08/24/23
--- NOTE | 2023-08-24 10:50 | MHC.CM.PN ---
EMR reviewed and per MD rounds, pt is not medically cleared for D/C at this time. This CM met with pt to discuss discharge planning and likely need for placement and continued IV abx. Pt not agreeable at this time, she stated I can't do that, I have a job and I need to work, I can't go there for that long. CM will continue to follow.
[2023-08-24] MEDS: Acetaminophen 325 MG TABLET 975 MG PO ×3 (11:40→19:56)
[2023-08-24] MEDS: Enoxaparin Sodium 40 MG/0.4 ML SYRINGE SUBCUT (11:40)
[2023-08-24] MEDS: vancomycin HCL 1,250 MG in 0.9 % Sodium Chloride 250 ML 166 MG IV (11:41)
[2023-08-24] MEDS: Omeprazole 20 MG CAPSULE.DR PO ×2 (11:41→17:25)
[2023-08-24] MEDS: Ibuprofen 600 MG TABLET PO ×2 (11:41→17:25)
--- NOTE | 2023-08-24 13:22 | HO.PM.IMPN ---
Subjective Subjective Date of Service: 08/24/23 Interval History: Seen and evaluated this morning feels weak, having pain in her hip and back on room air Cultures growing Staph pending final result Review of Systems Review of Systems: Yes all other systems are reviewed and are negative Physical Exam Vital Signs: Vital Signs: Last Vital Signs Temp 97 F 08/24/23 06:49 Pulse 96 08/24/23 06:49 Resp 16 08/24/23 06:49 BP 120/68 08/24/23 06:49 Pulse Ox 98 08/24/23 06:49 O2 Del Method Room Air 08/24/23 06:49 BMI result Body Mass Index 28.6 Const: Other: Constitutional : Awake, interactive, not in distress Neck : Normal inspection, Supple Cardiovascular : RRR, no JVP, no lower extremity edema, systolic murmur Respiratory : good bilateral air entry, fine crackles Gastrointestinal: soft, lax, Normal bowel sounds, Non tender Skin : Warm, Dry, multiple injection jimenez Neurological : Alert & oriented x3, No focal deficit Objective Data Active Medications Acetaminophen (Acetaminophen 325 Mg Tablet) 975 mg PO TID [facility] Last Admin: 08/24/23 11:40 Dose: 975 mg Documented By: MERLY Docusate Sodium (Docusate Sodium 100 Mg Capsule) 100 mg PO DAILY PRN PRN Reason: Constipation Enoxaparin Sodium (Enoxaparin Sodium 40 Mg/0.4 Ml Syringe) 40 mg SUBCUT Q24H [facility] Last Admin: 08/24/23 11:40 Dose: 40 mg Documented By: MERLY Hydromorphone HCl (Hydromorphone Hcl 1 Mg/Ml Syringe) 0.5 mg IVPUSH Q4H PRN; Protocol PRN Reason: Pain, Severe (Pain Scale 7-10) Last Admin: 08/24/23 09:49 Dose: 0.5 mg Documented By: MERLY Hydromorphone HCl (Hydromorphone Hcl 2 Mg Tablet) 2 mg PO Q6H [facility] Last Admin: 08/24/23 08:26 Dose: 2 mg Documented By: MERLY Cefazolin Sodium/Dextrose (Ancef) 2 gm in 50 mls @ 100 mls/hr IV Q8H [facility] Last Infusion: 08/24/23 12:29 Dose: Infused Documented By: MERLY Vancomycin HCl 1,250 mg/ (Sodium Chloride) 250 mls @ 166.667 mls/hr IV Q8H [facility] Last Admin: 08/24/23 11:41 Dose: 166 mls/hr Documented By: MERLY Ibuprofen (Ibuprofen 600 Mg Tablet) 600 mg PO TIDWM [facility] Last Admin: 08/24/23 11:41 Dose: 600 mg Documented By: MERLY Methadone HCl (Methadone Hcl 20 Mg/2 Ml Oral.Conc) 85 mg PO DAILY [facility] Last Admin: 08/24/23 08:25 Dose: 85 mg Documented By: MERLY Methadone HCl (Methadone Hcl 20 Mg/2 Ml Oral.Conc) 15 mg PO DAILY@1999 [facility] Last Admin: 08/23/23 21:12 Dose: 15 mg Documented By: CATHI Omeprazole (Omeprazole 20 Mg Capsule.Dr) 20 mg PO BID@0630,1630 [facility] Last Admin: 08/24/23 11:41 Dose: 20 mg Documented By: MERLY Ondansetron HCl (Ondansetron Hcl 4 Mg/2 Ml Vial) 4 mg IVPUSH Q8H PRN PRN Reason: Nausea and Vomiting Pharmacy Consult (Consult Rx Vancomycin Dosing) 1 each MISCELLANE DAILY PRN PRN Reason: Consult order Sodium Chloride (0.9 % Sodium Chloride Flush 3 Ml Syringe) 3 ml IVFLUSH QSHIFT [facility] Last Admin: 08/24/23 08:26 Dose: Not Given Documented By: MERLY Non-Admin Reason: IV Running Labs 08/23/23 05:55 08/23/23 05:55 Labs: Laboratory Results - last 24 hr 08/23/23 19:53 Random Vancomycin 5.6 L Microbiology Microbiology Results: Microbiology 08/22/23 04:10 Blood Culture - Final Blood - Venous Staphylococcus aureus 08/22/23 03:59 Blood Culture - Final Blood - Venous Staphylococcus aureus 08/22/23 Unknown Urine Culture - Final Urine clean catch - Urine albrecht top Assessment and Plan (1) Drug abuse: Status: Acute (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 (3) Staphylococcus aureus bacteremia: Status: Acute (4) Opioid use disorder: Status: Acute (5) Pneumonia: Status: Acute Plan 38F PMH IVDA presented with fevers and back pain Severe sepsis due to MSSA bacteremia from IV drug use complicated by pneumonia and possible septic facet arthritis Continue vancomycin, follow-up cultures echo showing right sided vegetations Repeat cultures pending, difficult veins Cardio input appreciated, Antibiotics pending repeat cultures Infectious disease eval Hep C and HIV testing Opiate dependence with withdrawal Addiction team following On methadone Mild hyponatremia, hypokalemia Monitor replace k UTI DC Ceftriaxone Mixed bacteria on cultures DVT prophylaxis with Lovenox Full code Reason for continued hospitalization: Bacteremia pending resolution and safe DC plan Time Spent With Patient Time: Total time managing care of this patient today ____ minutes. Quality Stroke Does the patient have a stroke diagnosis?: No VTE Prior VTE?: No VTE Risk Level:: Medical - moderate - high VTE Device Contraindication: Treatment Not Indicated VTE Drug Contraindication: N/A - Med Ordered
[2023-08-24] MEDS: 0.9 % Sodium Chloride 250 ML 999 ML IV (14:19)
[2023-08-24 16:00] VITALS: BP 101/62; PULSE 70; RESP 18; TEMP 36.2; O2SAT 95
--- NOTE | 2023-08-24 16:11 | MHC.CM.PN ---
Pts sister Emma requested to speak with this CM. Per Emma she is very concerned about the pts boyfriend stating he does not care about her. Emma would like to be added to the HCP. This CM asked the pt if she would like to add her sister on as a HCP, and she declined. However, pt stated we can add her sister to the contact list and she can be updated. Pts sister Emma also stated that her sister legal last name is Anastasia.
--- NOTE | 2023-08-24 16:23 | P.PNID_ITS ---
Subjective Subjective Date of Service: 08/24/23 Critical Care Time (minutes): 15 Comment: she is sleeping ,no complaints Objective Data Labs 08/23/23 05:55 08/23/23 05:55 Labs: Laboratory Results - last 24 hr 08/23/23 19:53 Random Vancomycin 5.6 L Microbiology Microbiology Results: Microbiology 08/22/23 04:10 Blood - Venous Blood Culture - Final Staphylococcus aureus 08/22/23 03:59 Blood - Venous Blood Culture - Final Staphylococcus aureus 08/22/23 Unknown Urine clean catch - Urine albrecht top Urine Culture - Final Physical Exam 2 Vital Signs: Vital Signs: Last Vital Signs Temp 97 F 08/24/23 06:49 Pulse 96 08/24/23 06:49 Resp 16 08/24/23 06:49 BP 120/68 08/24/23 06:49 Pulse Ox 98 08/24/23 06:49 O2 Del Method Room Air 08/24/23 06:49 BMI result Body Mass Index 28.6 Const: General: cooperative HEENT: Head: Yes normal to inspection Face and sinus: Yes normal facial exam Mouth: Normal oral and palatal mucosa present Teeth and gingiva: d entition normal Eyes: General: appearance normal, both eyes and all related structures P upils: Equal, round and reactive pupils present Resp: Effort & Inspection: normal respiratory effort Cardio: Rate: regular rate Rhythm: regular rhythm GI: Palpation (GI): Soft to palpation and nontender : General: Yes no CVA tenderness Back/Spine/Pelvis: Back: no CVA tenderness Skin: General skin exam: no rashes or lesions noted Neuro: General: moves all extremities Cranial nerves: Yes Equal, round and reactive pupils present Extrem: General: Yes normal to inspection Psych: Appearance: grossly normal Assessment and Plan Assessment and plan (1) Endocarditis of tricuspid valve: Status: Acute Plan Tricuspid valve endocarditis MSSA No indication at this time for valve replacement. Kefzol for four weeks since possible lung septic emboli. I stopped Vancomycin. Time Spent With Patient Time: Total time managing care of this patient today ____ minutes.
[2023-08-24] MEDS: methADONE HCl 20 MG/2 ML ORAL.CONC 15 MG PO (19:55)
[2023-08-24 19:58] LABS: Creatinine Clr Calc Pharmacy 129.7; Estimated Glomerular Filt Rate > 60
[2023-08-24 20:00] VITALS: BP 101/66; PULSE 61; RESP 20; TEMP 36; O2SAT 100
[2023-08-24 20:06] LABS: Vancomycin Random 17.8 mcg/mL (15-20)
[2023-08-24] MEDS: 0.9 % Sodium Chloride Flush 3 ML SYRINGE IVFLUSH (22:08)
--- NOTE | 2023-08-24 23:03 | PC.NURSE ---
pt's boyfriend and sister here visiting. T called to report that pt's boyfriend gave her something. Security called and room searched. Pt was holding a small clutch purse between her legs that was found by this RN. Security searched the clutch and a small container of crack was found. Security took the crack. Pt now wants to leave AMA. Dr. Deal came and convinced her to stay until the morning. Pt is not allowed to have any more visitors. 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
[2023-08-25] MEDS: HYDROmorphone HCl 2 MG TABLET PO ×4 (02:25→19:42)
[2023-08-25 03:13] VITALS: BP 100/73; PULSE 64; RESP 18; TEMP 36.1; O2SAT 99
[2023-08-25] MEDS: ceFAZolin Sodium/Dextrose,Iso 2 GM/50 ML PIGGYBACK IV ×3 (04:21→21:05)
[2023-08-25] MEDS: HYDROmorphone HCl 1 MG/ML SYRINGE 0.5 MG IVPUSH (04:46)
[2023-08-25] MEDS: Omeprazole 20 MG CAPSULE.DR PO (05:41)
--- NOTE | 2023-08-25 06:35 | PC.NURSE ---
At 0520 pt c/o 8/10 pain in left leg. Pt received 0.5 mg IV dilaudid at [address] Deal made aware. Pt stating she's leaving AMA, sister will be her in an hour to pick her up. Dr. Deal notified and OK'd to give scheduled PO dilaudid early. Will continue to monitor.
--- NOTE | 2023-08-25 06:50 | PM.EVENT ---
Event Note Date of Service: 08/25/23 Event Note: Threatned to leave AMA throught shift, initially gave no reason, toward the end of claim she was having pain in the leg shortly after receiving iv pain med, advised RN to give other pain med early and again advised not to leave AMA, for now she's staying, and in the end if she decides to leave has nothing to do with pain med as even at time she was not having pain Time Spent With Patient Time: Total time managing care of this patient today ____ minutes.
[2023-08-25] MEDS: Acetaminophen 325 MG TABLET 975 MG PO ×2 (07:41→14:05)
[2023-08-25] MEDS: Ibuprofen 600 MG TABLET PO ×2 (07:41→12:59)
[2023-08-25 08:00] VITALS: BP 100/57; PULSE 87; RESP 16; TEMP 37.4; O2SAT 97
[2023-08-25 09:37] LABS: Creatinine Clr Calc Pharmacy 131.9; Estimated Glomerular Filt Rate > 60
[2023-08-25] MEDS: Enoxaparin Sodium 40 MG/0.4 ML SYRINGE SUBCUT (13:00)
--- NOTE | 2023-08-25 13:08 | MHC.RECOVRN ---
Met with pt in 377 to check in, sister Emma present. Pt laying in bed, awake, alert, easily engages in conversation. Pt reports pain is being adequately managed at this time. Pt upset that boyfriend can no longer visit, thinking about leaving AMA to present to [facility] to be at a facility where boyfriend will be able to visit. Pt aware she will not be here for the duration of IV abx and boyfriend would likely be able to visit at [facility]. Pt comfortable at the moment and not leaving AMA. Discussed with Kimi Olsen APRN.
--- NOTE | 2023-08-25 14:47 | HO.PM.IMPN ---
Subjective Subjective Date of Service: 08/25/23 Interval History: Seen and evaluated this morning Difficult night as she wanted to leave AMA reporting having pain in her hip and back on room air Cultures growing MSSA Review of Systems Review of Systems: Yes all other systems are reviewed and are negative Physical Exam Vital Signs: Vital Signs: Last Vital Signs Temp 99.4 F 08/25/23 08:00 Pulse 87 08/25/23 08:00 Resp 16 08/25/23 08:00 BP 100/57 L 08/25/23 08:00 Pulse Ox 97 08/25/23 08:00 O2 Del Method Room Air 08/25/23 08:00 BMI result Body Mass Index 28.6 Const: Other: Constitutional : Awake, interactive, not in distress Neck : Normal inspection, Supple Cardiovascular : RRR, no JVP, no lower extremity edema, systolic murmur Respiratory : good bilateral air entry, fine crackles Gastrointestinal: soft, lax, Normal bowel sounds, Non tender Skin : Warm, Dry, multiple injection jimenez Neurological : Alert & oriented x3, No focal deficit Objective Data Active Medications Acetaminophen (Acetaminophen 325 Mg Tablet) 975 mg PO TID [facility] Last Admin: 08/25/23 14:05 Dose: 975 mg Documented By: VALENTIN Docusate Sodium (Docusate Sodium 100 Mg Capsule) 100 mg PO DAILY PRN PRN Reason: Constipation Enoxaparin Sodium (Enoxaparin Sodium 40 Mg/0.4 Ml Syringe) 40 mg SUBCUT Q24H [facility] Last Admin: 08/25/23 13:00 Dose: 40 mg Documented By: VALENTIN Hydromorphone HCl (Hydromorphone Hcl 2 Mg Tablet) 2 mg PO Q6H [facility] Last Admin: 08/25/23 13:33 Dose: 2 mg Documented By: VALENTIN Hydromorphone HCl (Hydromorphone Hcl 1 Mg/Ml Syringe) 1 mg IVPUSH Q3H PRN; Protocol PRN Reason: Pain, Severe (Pain Scale 7-10) Last Admin: 08/25/23 11:34 Dose: 1 mg Documented By: VALENTIN Cefazolin Sodium/Dextrose (Ancef) 2 gm in 50 mls @ 100 mls/hr IV Q8H [facility] Last Infusion: 08/25/23 14:46 Dose: Infused Documented By: VALENTIN Ibuprofen (Ibuprofen 600 Mg Tablet) 600 mg PO TIDWM [facility] Last Admin: 08/25/23 12:59 Dose: 600 mg Documented By: VALENTIN Methadone HCl (Methadone Hcl 20 Mg/2 Ml Oral.Conc) 85 mg PO DAILY [facility] Last Admin: 08/25/23 07:40 Dose: 85 mg Documented By: VALENTIN Methadone HCl (Methadone Hcl 20 Mg/2 Ml Oral.Conc) 15 mg PO DAILY@1999 [facility] Last Admin: 08/24/23 19:55 Dose: 15 mg Documented By: FLORY Omeprazole (Omeprazole 20 Mg Capsule.Dr) 20 mg PO BID@0630,1630 [facility] Last Admin: 08/25/23 05:41 Dose: 20 mg Documented By: FLORY Ondansetron HCl (Ondansetron Hcl 4 Mg/2 Ml Vial) 4 mg IVPUSH Q8H PRN PRN Reason: Nausea and Vomiting Sodium Chloride (0.9 % Sodium Chloride Flush 3 Ml Syringe) 3 ml IVFLUSH QSHIFT [facility] Last Admin: 08/25/23 14:46 Dose: Not Given Documented By: VALENTIN Non-Admin Reason: IV Running Labs 08/23/23 05:55 08/25/23 09:14 Labs: Laboratory Results - last 24 hr 08/24/23 08/25/23 19:15 09:14 Hold Purple Top SEE NOTE Estim Creat Clear Calc 129.7 131.9 Estimated GFR > 60 > 60 Random Vancomycin 17.8 Microbiology Microbiology Results: Microbiology 08/22/23 04:10 Blood Culture - Final Blood - Venous Staphylococcus aureus 08/22/23 03:59 Blood Culture - Final Blood - Venous Staphylococcus aureus 08/22/23 Unknown Urine Culture - Final Urine clean catch - Urine albrecht top Assessment and Plan (1) Drug abuse: Status: Acute (2) Staphylococcus aureus bacteremia: Status: Acute (3) Endocarditis of tricuspid valve: Status: Acute Plan 38F PMH IVDA presented with fevers and back pain Severe sepsis due to MSSA bacteremia from IV drug use complicated by pneumonia and possible septic facet arthritis Pending repeat cultures Continue vancomycin echo showing right sided vegetations Repeat cultures pending, difficult veins Cardio input appreciated, Antibiotics pending repeat cultures Infectious disease eval Hep C and HIV testing Question competency PSych eval per family request Opiate dependence with withdrawal Addiction team following On methadone Mild hyponatremia, hypokalemia Monitor replace k UTI DC Ceftriaxone Mixed bacteria on cultures DVT prophylaxis with Lovenox Full code Reason for continued hospitalization: Bacteremia pending resolution and safe DC plan Time Spent With Patient Time: Total time managing care of this patient today ____ minutes. Quality Stroke Does the patient have a stroke diagnosis?: No VTE Prior VTE?: No VTE Risk Level:: Medical - moderate - high VTE Device Contraindication: Treatment Not Indicated VTE Drug Contraindication: N/A - Med Ordered
[2023-08-25 15:37] VITALS: BP 98/59; PULSE 66; RESP 18; TEMP 36; O2SAT 98
--- NOTE | 2023-08-25 15:39 | PM.PSYCN ---
History of Present Illness Date of Service: 08/25 Chief Complaint: fever, lower back pain, ?spinal epidural abscess Requesting physician: Bibi Rm Discussed with referring provider: Yes Sources of Information: patient interviewed and chart reviewed HPI Narrative: Patient is a 38-year-old female with history of IVDU, opioid abuse on methadone who initially presented with headache, fever and low back pain, diagnosed with sepsis with subsequent tricuspid valve endocarditis MSSA, and septic emboli and lung in joints. Sepsis stabilized and being treated with IV antibiotics. Consult to Psychiatry place to assess patient's capacity to leave AMA. Patient is cooperative, friendly on approach, with organized speech and behavior, and logical thought process. Patient said that she has decided to stay and remained for treatment. She said she initially considered leaving AMA because her was homeless and only she had access to their bank account. However she was able to get funds for him and issue was resolved; furthermore she reports he very much wanted her to stay and remain for treatment. Chief Development Officer and patient discussed her illness and treatment. Patient clearly has a factual understanding of her illness, including details of endocarditis and septic emboli; she also understands the treatment she is receiving and its necessity. Patient fully comprehends the potential consequences if she were to leave AMA which includes high risk of . Patient says she does not want to but earlier, but explained when faced with leaving her homeless, she felt that temporarily leaving treatment to help take care of this issue was worth the risk; she reports her plan was to return as soon as possible and resume treatment. She is glad it worked out so that she can stay for treatment. Medical Evaluation Reviewed: Yes [facility] Medical History (Updated 08/24/23 @ 10:51 by Leeroy Gavin MD) Staphylococcus aureus bacteremia Scabies Diagnostics Vital Signs (24Hr): Vital Signs - 24 hr 08/24/23 16:00 08/24/23 20:00 08/25/23 03:13 Temperature 97.1 F 96.8 F 97 F Pulse Rate 70 61 64 Respiratory Rate 18 20 18 Blood Pressure 101/62 101/66 100/73 Pulse Oximetry 95 100 99 Oxygen Delivery Method Room Air Room Air Room Air 08/25/23 08:00 08/25/23 15:37 Temperature 99.4 F 96.8 F Pulse Rate 87 66 Respiratory Rate 16 18 Blood Pressure 100/57 L 98/59 L Pulse Oximetry 97 98 Oxygen Delivery Method Room Air Room Air BMI result Body Mass Index 28.6 Labs 08/23/23 05:55 08/25/23 09:14 Labs: Laboratory Results - last 48 hr 08/23/23 08/24/23 08/25/23 19:53 19:15 09:14 Hold Purple Top SEE NOTE Creatinine 0.58 0.57 Estim Creat Clear Calc 129.7 131.9 Estimated GFR > 60 > 60 Random Vancomycin 5.6 L 17.8 Imaging Radiology Impressions: ITS Impressions Chest X-Ray 08/22/23 03:12 IMPRESSION: Hazy right basilar opacity concerning for developing consolidation in the setting of fever. Radiographic followup after treatment/resolution of symptoms is recommended. Lumbar Spine CT 08/22/23 05:01 IMPRESSION: No acute findings identified. If clinically warranted, MRI would provide better assessment for potential osteomyelitis. Lumbar Spine MRI 08/22/23 19:55 IMPRESSION: 1. No evidence of epidural abscess. No evidence of discitis osteomyelitis. No spinal canal or neural foraminal stenosis. No nerve root compression. 2. Diffuse edema within the subcutaneous fat of the lower back and mild ill-defined paraspinal muscle edema centered about the L4-L5 level. Mild increased fluid in the right-sided L4-L5 facet joint with edema and enhancement seen in this region. Imaging could be degenerative or posttraumatic changes. Septic facet arthritis would have a similar imaging appearance. Mental Status Exam Mental Status Exam Narrative: Pt is alert and oriented; behavior is cooperative, friendly and calm; patient is not in distress; dressed in hospital attire with braided hair adequate hygiene; mood is described as okay and affect congruent; eye contact appropriate; Speech is normal rate, volume and prosody and not pressured; no psychomotor agitation/retardation present; thought process is organized and goal directed; Thought content is on tx; otherwise pertinent to relevant topics and without any delusional content, paranoid ideations or grandiosity; denies any SI/HI. There is no evidence of perceptual disturbance. Patients insight and judgment are intact. Medications Medications Current Medications Acetaminophen (Acetaminophen 325 Mg Tablet) 975 mg PO TID [facility] Last Admin: 08/25/23 14:05 Dose: 975 mg Docusate Sodium (Docusate Sodium 100 Mg Capsule) 100 mg PO DAILY PRN PRN Reason: Constipation Enoxaparin Sodium (Enoxaparin Sodium 40 Mg/0.4 Ml Syringe) 40 mg SUBCUT Q24H [facility] Last Admin: 08/25/23 13:00 Dose: 40 mg Hydromorphone HCl (Hydromorphone Hcl 2 Mg Tablet) 2 mg PO Q6H [facility] Last Admin: 08/25/23 13:33 Dose: 2 mg Hydromorphone HCl (Hydromorphone Hcl 1 Mg/Ml Syringe) 1 mg IVPUSH Q3H PRN; Protocol PRN Reason: Pain, Severe (Pain Scale 7-10) Last Admin: 08/25/23 11:34 Dose: 1 mg Cefazolin Sodium/Dextrose (Ancef) 2 gm in 50 mls @ 100 mls/hr IV Q8H [facility] Last Infusion: 08/25/23 14:46 Dose: Infused Ibuprofen (Ibuprofen 600 Mg Tablet) 600 mg PO TIDWM [facility] Last Admin: 08/25/23 12:59 Dose: 600 mg Methadone HCl (Methadone Hcl 20 Mg/2 Ml Oral.Conc) 85 mg PO DAILY [facility] Last Admin: 08/25/23 07:40 Dose: 85 mg Methadone HCl (Methadone Hcl 20 Mg/2 Ml Oral.Conc) 15 mg PO DAILY@1999 [facility] Last Admin: 08/24/23 19:55 Dose: 15 mg Omeprazole (Omeprazole 20 Mg Capsule.Dr) 20 mg PO BID@0630,1630 [facility] Last Admin: 08/25/23 05:41 Dose: 20 mg Ondansetron HCl (Ondansetron Hcl 4 Mg/2 Ml Vial) 4 mg IVPUSH Q8H PRN PRN Reason: Nausea and Vomiting Sodium Chloride (0.9 % Sodium Chloride Flush 3 Ml Syringe) 3 ml IVFLUSH QSHIFT [facility] Last Admin: 08/25/23 14:46 Dose: Not Given Allergies Allergies Allergy/AdvReac Type Severity Reaction Status Date / Time No Known Allergies Allergy Verified 12/14/21 15:29 Assessment & Plan Assessment & Plan (1) Endocarditis of tricuspid valve: Status: Acute Code(s): I07.9 - Rheumatic tricuspid valve disease, unspecified (2) Opioid use disorder: Status: Acute Code(s): F11.90 - Opioid use, unspecified, uncomplicated Plan Impression: Patient has full capacity to make medical decisions, including leaving AMA Patient is able to express a clear choice, has a factual understanding of her illness, the need for treatment and fully appreciates the risks of discontinuing treatment even briefly. Patient is able to discuss these decisions rationally. -currently patient has decided to remain for treatment. Total time managing care of this patient today ____ minutes. Patient educated on: diagnosis and medication risk/benefits Informed Consent: understands
[2023-08-25] MEDS: methADONE HCl 20 MG/2 ML ORAL.CONC 15 MG PO (19:42)
[2023-08-25 20:00] VITALS: BP 111/70; PULSE 82; RESP 20; TEMP 36; O2SAT 97
[2023-08-25] MEDS: 0.9 % Sodium Chloride Flush 3 ML SYRINGE IVFLUSH (21:06)
[2023-08-26] VITALS: BP 110/73; PULSE 70; RESP 20; TEMP 36.1; O2SAT 97
[2023-08-26 02:04] VITALS: BP 145/82; PULSE 83
--- NOTE | 2023-08-26 02:15 | PC.NURSE ---
0125 pt complaining of a lot of pain and crying not due until 0315 fro prn dilaudid asking for ativan. notified.ativan 1 mg po ordered and given at 0142.pt then stated she wanted to leave. notified and came to see pt.pt continued crying and complaining of a lot of pain.a one time dose of dilaudid 1mg IV ordered and given at 0201.
[2023-08-26 04:00] VITALS: O2SAT 98
[2023-08-26] MEDS: ceFAZolin Sodium/Dextrose,Iso 2 GM/50 ML PIGGYBACK IV ×2 (04:50→14:33)
[2023-08-26 07:45] VITALS: BP 120/69; PULSE 92; RESP 18; TEMP 36.4; O2SAT 98
--- NOTE | 2023-08-26 11:45 | MHC.CM.PN ---
Per rounds patient will require IV ABX at discharge. Patient is prescribed Methadone. Referrals have been sent to [facility]; which is the only local [facility] that accepts Methadone patients. A referral to [facility] has been sent. They accept patients on Methaone. Patient will transport via BLS. DC is pending clear blood cultures and PICC line insertion.
--- NOTE | 2023-08-26 13:46 | MHC.RECOVRN ---
Met with pt in 377 to follow up and provide support. Pt laying in bed, eyes closed, wakes to voice. Appears comfortable. Pt reports pain is being managed adequately at this time and [place] [facility] [place] Pt does not express any interest in a self directed discharge, is agreeable to complete admission. Pt denies questions or concerns at this time.
[2023-08-26 15:12] VITALS: BP 112/71; PULSE 78; RESP 18; TEMP 36.1; O2SAT 97
--- NOTE | 2023-08-26 15:34 | HO.PM.IMPN ---
Subjective Subjective Date of Service: 08/26/23 Interval History: more alert and interactive this afternoon pain under fair control , mainly in hip Cultures growing MSSA Pending repeat cultures Review of Systems Review of Systems: Yes all other systems are reviewed and are negative Physical Exam Vital Signs: Vital Signs: Last Vital Signs Temp 97.0 F 08/26/23 15:12 Pulse 78 08/26/23 15:12 Resp 18 08/26/23 15:12 BP 112/71 08/26/23 15:12 Pulse Ox 97 08/26/23 15:12 O2 Del Method Room Air 08/26/23 15:12 BMI result Body Mass Index 28.6 Const: Other: Constitutional : Awake, interactive, not in distress Neck : Normal inspection, Supple Cardiovascular : RRR, no JVP, no lower extremity edema, systolic murmur Respiratory : good bilateral air entry, fine crackles Gastrointestinal: soft, lax, Normal bowel sounds, Non tender Skin : Warm, Dry, multiple injection jimenez Skeletal: Left hip tenderness on palpation, no erythema or warmth Neurological : Alert & oriented x3, No focal deficit Objective Data Active Medications Acetaminophen (Acetaminophen 325 Mg Tablet) 975 mg PO TID [facility] Last Admin: 08/26/23 15:08 Dose: 975 mg Documented By: CINTHIA Docusate Sodium (Docusate Sodium 100 Mg Capsule) 100 mg PO DAILY PRN PRN Reason: Constipation Enoxaparin Sodium (Enoxaparin Sodium 40 Mg/0.4 Ml Syringe) 40 mg SUBCUT Q24H [facility] Last Admin: 08/26/23 14:33 Dose: 40 mg Documented By: CINTHIA Hydromorphone HCl (Hydromorphone Hcl 2 Mg Tablet) 2 mg PO Q6H [facility] Last Admin: 08/26/23 14:31 Dose: 2 mg Documented By: CINTHIA Hydromorphone HCl (Hydromorphone Hcl 1 Mg/Ml Syringe) 1 mg IVPUSH Q3H PRN; Protocol PRN Reason: Pain, Severe (Pain Scale 7-10) Last Admin: 08/26/23 04:50 Dose: 1 mg Documented By: MAGDI Cefazolin Sodium/Dextrose (Ancef) 2 gm in 50 mls @ 100 mls/hr IV Q8H [facility] Last Infusion: 08/26/23 15:03 Dose: Infused Documented By: CINTHIA Ibuprofen (Ibuprofen 600 Mg Tablet) 600 mg PO TIDWM [facility] Last Admin: 08/26/23 14:31 Dose: 600 mg Documented By: CINTHIA Methadone HCl (Methadone Hcl 20 Mg/2 Ml Oral.Conc) 85 mg PO DAILY [facility] Last Admin: 08/26/23 08:07 Dose: 85 mg Documented By: CINTHIA Methadone HCl (Methadone Hcl 20 Mg/2 Ml Oral.Conc) 15 mg PO DAILY@1999 [facility] Last Admin: 08/25/23 19:42 Dose: 15 mg Documented By: MAGDI Omeprazole (Omeprazole 20 Mg Capsule.Dr) 20 mg PO BID@0630,1630 [facility] Last Admin: 08/26/23 08:10 Dose: 20 mg Documented By: CINTHIA Ondansetron HCl (Ondansetron Hcl 4 Mg/2 Ml Vial) 4 mg IVPUSH Q8H PRN PRN Reason: Nausea and Vomiting Sodium Chloride (0.9 % Sodium Chloride Flush 3 Ml Syringe) 3 ml IVFLUSH QSHIFT [facility] Last Admin: 08/26/23 15:08 Dose: 3 ml Documented By: CINTHIA Labs 08/23/23 05:55 08/25/23 09:14 Microbiology Microbiology Results: Microbiology 08/25/23 09:14 Blood Culture - Preliminary Blood - Venous No growth after 24 hours. 08/25/23 09:14 Blood Culture - Preliminary Blood - Venous No growth after 24 hours. Assessment and Plan (1) Drug abuse: Status: Acute (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 (3) Staphylococcus aureus bacteremia: Status: Acute (4) Opioid use disorder: Status: Acute (5) Acute opioid withdrawal: Status: Acute Plan 38F PMH IVDA presented with fevers and back pain Severe sepsis due to MSSA bacteremia from IV drug use complicated by pneumonia and possible septic facet arthritis Pending repeat cultures Continue Cefazolin echo showing right sided vegetations Repeat cultures pending Cardio input appreciated, Antibiotics pending repeat cultures Infectious disease 4-6 weeks of IV Cefazolin Hep C and HIV to be checked, order was cancelled To Place PICC line once Cx negative Question competency PSych eval per family request; patient has capacity Opiate dependence with acute withdrawal Addiction team following, suggested increase narcotics for better pain control On methadone Mild hyponatremia, hypokalemia Monitor replace k UTI DC Ceftriaxone Mixed bacteria on cultures DVT prophylaxis with Lovenox Full code Reason for continued hospitalization: Bacteremia pending resolution and safe DC plan Time Spent With Patient Time: Total time managing care of this patient today ____ minutes. Quality Stroke Does the patient have a stroke diagnosis?: No VTE Prior VTE?: No VTE Risk Level:: Medical - moderate - high VTE Device Contraindication: Treatment Not Indicated VTE Drug Contraindication: N/A - Med Ordered
--- NOTE | 2023-08-26 16:49 | PM.EVENT ---
Event Note Date of Service: 08/26/23 Event Note: Addiction follow up Patient seen several times by Recovery Support RN. Reporting concern for sleep and pain management overnight. Discussed with attending, Trazodone 50mg QHS may repeat X1 Time Spent With Patient Time: Total time managing care of this patient today ____ minutes.
--- NOTE | 2023-08-26 17:00 | W.PM.IDCN ---
History of Present Illness Data of Consult Service Date: 08/26/23 Requesting physician: Bibi Rm Primary Care Provider: Unknown Physician HPI Reason for consult: MSSA bacteremia She presents to hospital with left hip and back pain as well as right shoulder pain. She has temperature 100.2. She has blood cultures MSSA. Endocarditis concern tricuspid valve. Review of Systems Review of Systems: Yes all other systems are reviewed and are negative PMFSH Past Medical History Medical History Staphylococcus aureus bacteremia Scabies Social History Social History Household Members: Spouse Housing: Homeless Do you presently have visiting nurse or other home services: No Alcohol intake: never Patient Tobacco Use Status: Never used Tobacco Smoked in Last 30 Days: Yes Use of substances other than those prescribed or required for medical reasons: No Substance Use Type: Crack/Cocaine and Heroin Currently Displaying Signs/Symptoms of Drug Intoxication Withdrawal: No Have you been hit, kicked, punched, or otherwise hurt by someone within the past year? If so, by whom?: No Do you feel safe in your current relationship?: Yes Is there a partner from a previous relationship who is making you feel unsafe now?: No Are you made to feel afraid or neglected: No Advance Directives: No Advance Directives Information Provided: No Do you have thoughts of harming others: None Do you have a plan to hurt others: No Plan Recently lost weight without trying: No Eating poorly because of decreased appetite: No Nutrition Risks: No Nutritional Risk Patient : No : No Poor oral hygiene: No service: No Meds Allergies Allergy/AdvReac Type Severity Reaction Status Date / Time No Known Allergies Allergy Verified 12/14/21 15:29 Active Medications: Current Medications Acetaminophen (Acetaminophen 325 Mg Tablet) 975 mg PO TID [facility] Last Admin: 08/26/23 15:08 Dose: 975 mg Docusate Sodium (Docusate Sodium 100 Mg Capsule) 100 mg PO DAILY PRN PRN Reason: Constipation Enoxaparin Sodium (Enoxaparin Sodium 40 Mg/0.4 Ml Syringe) 40 mg SUBCUT Q24H [facility] Last Admin: 08/26/23 14:33 Dose: 40 mg Hydromorphone HCl (Hydromorphone Hcl 1 Mg/Ml Syringe) 1 mg IVPUSH Q3H PRN; Protocol PRN Reason: Pain, Severe (Pain Scale 7-10) Last Admin: 08/26/23 04:50 Dose: 1 mg Hydromorphone HCl (Hydromorphone Hcl 2 Mg Tablet) 2 mg PO Q6H PRN PRN Reason: Pain, Severe (Pain Scale 7-10) Cefazolin Sodium/Dextrose (Ancef) 2 gm in 50 mls @ 100 mls/hr IV Q8H [facility] Last Infusion: 08/26/23 15:03 Dose: Infused Ibuprofen (Ibuprofen 600 Mg Tablet) 600 mg PO TIDWM [facility] Last Admin: 08/26/23 14:31 Dose: 600 mg Methadone HCl (Methadone Hcl 20 Mg/2 Ml Oral.Conc) 85 mg PO DAILY [facility] Last Admin: 08/26/23 08:07 Dose: 85 mg Methadone HCl (Methadone Hcl 20 Mg/2 Ml Oral.Conc) 15 mg PO DAILY@1999 [facility] Last Admin: 08/25/23 19:42 Dose: 15 mg Omeprazole (Omeprazole 20 Mg Capsule.Dr) 20 mg PO BID@0630,1630 [facility] Last Admin: 08/26/23 08:10 Dose: 20 mg Ondansetron HCl (Ondansetron Hcl 4 Mg/2 Ml Vial) 4 mg IVPUSH Q8H PRN PRN Reason: Nausea and Vomiting Sodium Chloride (0.9 % Sodium Chloride Flush 3 Ml Syringe) 3 ml IVFLUSH QSHIFT [facility] Last Admin: 08/26/23 15:08 Dose: 3 ml Trazodone HCl (Trazodone Hcl 50 Mg Tablet) 50 mg PO BEDTIME MRX1 PRN PRN Reason: Sleep Home Medications Medication Instructions Recorded Confirmed Last Taken Type No Known Home Meds 08/22/23 08/22/23 Unknown History Physical Exam Vital Signs: Vital Signs: Last Vital Signs Temp 97.0 F 08/26/23 15:12 Pulse 78 08/26/23 15:12 Resp 18 08/26/23 15:12 BP 112/71 08/26/23 15:12 Pulse Ox 97 08/26/23 15:12 O2 Del Method Room Air 08/26/23 15:12 BMI result Body Mass Index 28.6 Const: General: cooperative HEENT: Head: Yes normal to inspection Face and sinus: Yes normal facial exam Mouth: Normal oral and palatal mucosa present Teeth and gingiva: dentition normal Eyes: General: appearance normal, both eyes and all related structures Pupils: Equal, round and reactive pupils present Resp: Effort & Inspection: normal respiratory effort Cardio: Rate: regular rate Rhythm: regular rhythm GI: Palpation (GI): Soft to palpation and nontender : General: Yes no CVA tenderness Back/Spine/Pelvis: Other: pain left hip Back: no CVA tenderness Skin: General skin exam: no rashes or lesions noted Neuro: General: moves all extremities Cranial nerves: Yes Equal, round and reactive pupils present Extrem: General: Yes normal to inspection Psych: Appearance: grossly normal Results Labs 08/23/23 05:55 08/25/23 09:14 Microbiology Microbiology Results: Microbiology 08/25/23 09:14 Blood - Venous Blood Culture - Preliminary No growth after 24 hours. 08/25/23 09:14 Blood - Venous Blood Culture - Preliminary No growth after 24 hours. 08/22/23 04:10 Blood - Venous Blood Culture - Final Staphylococcus aureus 08/22/23 03:59 Blood - Venous Blood Culture - Final Staphylococcus aureus 08/22/23 Unknown Urine clean catch - Urine albrecht top Urine Culture - Final Assessment and Plan (1) Drug abuse: Status: Acute (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 Kefzol probable six week. Check HIV and Hepatitis C. Image left hip if unable to walk or bacteremia persists. (3) Staphylococcus aureus bacteremia: Status: Acute (4) Opioid use disorder: Status: Acute Time Spent With Patient Time: Total time managing care of this patient today ____ minutes.
[2023-08-26] MEDS: methADONE HCl 20 MG/2 ML ORAL.CONC 15 MG PO (19:38)
[2023-08-26 19:45] VITALS: BP 122/73; PULSE 74; RESP 14; TEMP 36.2; O2SAT 98
--- NOTE | 2023-08-26 21:32 | PC.NURSE ---
Pt was c/o 04/30 left hip radiating to left leg pain, she said its feeling better at first encounter, pt was offered Trazodone but refused it, she requested for Ativan for anxiety instead, Dr. Deal was informed.
[2023-08-27 03:32] VITALS: BP 126/64; PULSE 82; RESP 18; TEMP 36.6; O2SAT 96
[2023-08-27 07:12] VITALS: BP 144/82; PULSE 100; RESP 16; TEMP 37.6; O2SAT 97
--- NOTE | 2023-08-27 12:39 | HO.PM.IMPN ---
Subjective Subjective Date of Service: 08/27/23 Interval History: alert and interactive this afternoon pain under fair control , mainly in hip Cultures growing MSSA repeat cultures negative Review of Systems Review of Systems: Yes all other systems are reviewed and are negative Physical Exam Vital Signs: Vital Signs: Last Vital Signs Temp 99.6 F 08/27/23 07:12 Pulse 100 08/27/23 07:12 Resp 16 08/27/23 07:12 BP 144/82 H 08/27/23 07:12 Pulse Ox 97 08/27/23 07:12 O2 Del Method Room Air 08/27/23 07:12 BMI result Body Mass Index 28.6 Const: Other: Constitutional : Awake, interactive, not in distress Neck : Normal inspection, Supple Cardiovascular : RRR, no JVP, no lower extremity edema, systolic murmur Respiratory : good bilateral air entry, fine crackles Gastrointestinal: soft, lax, Normal bowel sounds, Non tender Skin : Warm, Dry, multiple injection jimenez Skeletal: Left hip tenderness on palpation, no erythema or warmth Neurological : Alert & oriented x3, No focal deficit Objective Data Active Medications Acetaminophen (Acetaminophen 325 Mg Tablet) 975 mg PO TID [facility] Last Admin: 08/27/23 08:13 Dose: 975 mg Documented By: ANA Docusate Sodium (Docusate Sodium 100 Mg Capsule) 100 mg PO DAILY PRN PRN Reason: Constipation Enoxaparin Sodium (Enoxaparin Sodium 40 Mg/0.4 Ml Syringe) 40 mg SUBCUT Q24H [facility] Last Admin: 08/27/23 12:16 Dose: 40 mg Documented By: ANA Hydromorphone HCl (Hydromorphone Hcl 1 Mg/Ml Syringe) 1 mg IVPUSH Q3H PRN; Protocol PRN Reason: Pain, Severe (Pain Scale 7-10) Last Admin: 08/27/23 03:39 Dose: 1 mg Documented By: CASTILFelicita Hydromorphone HCl (Hydromorphone Hcl 2 Mg Tablet) 2 mg PO Q6H PRN PRN Reason: Pain, Severe (Pain Scale 7-10) Last Admin: 08/27/23 08:13 Dose: 2 mg Documented By: ANA Cefazolin Sodium/Dextrose (Ancef) 2 gm in 50 mls @ 100 mls/hr IV Q8H [facility] Last Infusion: 10/07/23 05:52 Dose: Infused Documented By: FIOR Ibuprofen (Ibuprofen 600 Mg Tablet) 600 mg PO TIDWM [facility] Last Admin: 08/27/23 12:16 Dose: 600 mg Documented By: ANA Lorazepam (Lorazepam 1 Mg Tablet) 1 mg PO BID PRN PRN Reason: Anxiety Last Admin: 08/26/23 23:31 Dose: 1 mg Documented By: FIOR Methadone HCl (Methadone Hcl 20 Mg/2 Ml Oral.Conc) 85 mg PO DAILY [facility] Last Admin: 08/27/23 08:14 Dose: 85 mg Documented By: ANA Methadone HCl (Methadone Hcl 20 Mg/2 Ml Oral.Conc) 15 mg PO DAILY@1999 [facility] Last Admin: 08/26/23 19:38 Dose: 15 mg Documented By: FIOR Omeprazole (Omeprazole 20 Mg Capsule.Dr) 20 mg PO BID@0630,1630 [facility] Last Admin: 08/27/23 05:51 Dose: 20 mg Documented By: FIOR Ondansetron HCl (Ondansetron Hcl 4 Mg/2 Ml Vial) 4 mg IVPUSH Q8H PRN PRN Reason: Nausea and Vomiting Sodium Chloride (0.9 % Sodium Chloride Flush 3 Ml Syringe) 3 ml IVFLUSH QSHIFT [facility] Last Admin: 08/27/23 08:14 Dose: 3 ml Documented By: ANA Trazodone HCl (Trazodone Hcl 50 Mg Tablet) 50 mg PO BEDTIME MRX1 PRN PRN Reason: Sleep Labs 08/23/23 05:55 08/25/23 09:14 Microbiology Microbiology Results: Microbiology 08/25/23 09:14 Blood Culture - Preliminary Blood - Venous No growth after 48 hours. 08/25/23 09:14 Blood Culture - Preliminary Blood - Venous No growth after 48 hours. Assessment and Plan (1) Endocarditis of tricuspid valve: Status: Acute (2) Staphylococcus aureus bacteremia: Status: Acute (3) Pneumonia: Status: Acute (4) Opioid use disorder: Status: Acute Plan 38F PMH IVDA presented with fevers and back pain Severe sepsis due to MSSA bacteremia from IV drug use complicated by pneumonia and possible septic facet arthritis Pending repeat cultures Continue Cefazolin (start counting 08/25/23) echo showing right sided vegetations Repeat cultures negative after 48 hours Cardio input appreciated, Antibiotics pending repeat cultures Infectious disease 4-6 weeks of IV Cefazolin Hep C and HIV to be checked, order was cancelled To Place PICC line next week Question competency PSych eval per family request; patient has capacity Opiate dependence with acute withdrawal Addiction team following, On methadone Mild hyponatremia, hypokalemia resolved UTI DC Ceftriaxone Mixed bacteria on cultures DVT prophylaxis with Lovenox Full code Reason for continued hospitalization: Bacteremia pending resolution and safe DC plan Time Spent With Patient Time: Total time managing care of this patient today ____ minutes. Quality Stroke Does the patient have a stroke diagnosis?: No VTE Prior VTE?: No VTE Risk Level:: Medical - moderate - high VTE Device Contraindication: Treatment Not Indicated VTE Drug Contraindication: N/A - Med Ordered
--- NOTE | 2023-08-27 13:18 | MHC.RECOVRN ---
Addendum entered by Mariza Shin RN 08/27/23 18:00: Attempt made again to make contact, pt currently sleeping. Spoke with pt's nurse, RN reports pt has been taking PO dilaudid today with good effect. RN states pt has been sleepy, but not lethargic today. Pt allowed to rest. Original Note: Pt appears to be resting comfortable at this time with eyes closed. NAD. Pt allowed to rest.
[2023-08-27 15:07] VITALS: BP 121/77; PULSE 78; RESP 18; TEMP 36.5; O2SAT 97
[2023-08-27 19:35] VITALS: BP 127/79; PULSE 83; RESP 16; TEMP 36.6; O2SAT 98
[2023-08-27] MEDS: methADONE HCl 20 MG/2 ML ORAL.CONC 15 MG PO (19:56)
[2023-08-28 03:35] VITALS: BP 133/80; PULSE 85; RESP 18; TEMP 36.4; O2SAT 100
--- NOTE | 2023-08-28 04:23 | PC.NURSE ---
Around 3am, pt woke up and c/o reproducible left sided pain along the mid axillary line, worsened with manual pressure and deep breathing, pt is feeling anxious, prn Lorazepam tab given and prn Dilaudid tab for pain, Dr. Deal was notified, revisited pt after and seen her asleep and arousable with relief.
[2023-08-28 08:00] VITALS: BP 117/76; PULSE 80; RESP 16; TEMP 36.5; O2SAT 97
--- NOTE | 2023-08-28 11:36 | HO.PM.IMPN ---
Subjective Subjective Date of Service: 08/28/23 Interval History: alert and interactive this afternoon pain under fair control Cultures growing MSSA repeat cultures negative Review of Systems Review of Systems: Yes all other systems are reviewed and are negative Physical Exam Vital Signs: Vital Signs: Last Vital Signs Temp 97.7 F 08/28/23 08:00 Pulse 80 08/28/23 08:00 Resp 16 08/28/23 08:00 BP 117/76 08/28/23 08:00 Pulse Ox 97 08/28/23 08:00 O2 Del Method Room Air 08/28/23 08:00 BMI result Body Mass Index 28.6 Const: Other: Constitutional : Awake, interactive, not in distress Neck : Normal inspection, Supple Cardiovascular : RRR, no JVP, no lower extremity edema, systolic murmur Respiratory : good bilateral air entry, fine crackles Gastrointestinal: soft, lax, Normal bowel sounds, Non tender Skin : Warm, Dry, multiple injection jimenez Skeletal: Left hip tenderness on palpation, no erythema or warmth Neurological : Alert & oriented x3, No focal deficit Objective Data Active Medications Acetaminophen (Acetaminophen 325 Mg Tablet) 975 mg PO TID [facility] Last Admin: 08/28/23 08:31 Dose: 975 mg Documented By: ANA Docusate Sodium (Docusate Sodium 100 Mg Capsule) 100 mg PO DAILY PRN PRN Reason: Constipation Enoxaparin Sodium (Enoxaparin Sodium 40 Mg/0.4 Ml Syringe) 40 mg SUBCUT Q24H [facility] Last Admin: 08/27/23 12:16 Dose: 40 mg Documented By: ANA Hydromorphone HCl (Hydromorphone Hcl 1 Mg/Ml Syringe) 1 mg IVPUSH Q3H PRN; Protocol PRN Reason: Pain, Severe (Pain Scale 7-10) Last Admin: 08/28/23 00:58 Dose: 1 mg Documented By: CASTILM Hydromorphone HCl (Hydromorphone Hcl 2 Mg Tablet) 2 mg PO Q6H PRN PRN Reason: Pain, Severe (Pain Scale 7-10) Last Admin: 08/28/23 08:31 Dose: 2 mg Documented By: ANA Cefazolin Sodium/Dextrose (Ancef) 2 gm in 50 mls @ 100 mls/hr IV Q8H [facility] Last Infusion: 08/28/23 05:45 Dose: Infused Documented By: FIOR Ibuprofen (Ibuprofen 600 Mg Tablet) 600 mg PO TIDWM [facility] Last Admin: 08/28/23 08:30 Dose: 600 mg Documented By: ANA Lorazepam (Lorazepam 1 Mg Tablet) 1 mg PO BID PRN PRN Reason: Anxiety Last Admin: 08/28/23 02:36 Dose: 1 mg Documented By: FIOR Methadone HCl (Methadone Hcl 20 Mg/2 Ml Oral.Conc) 85 mg PO DAILY [facility] Last Admin: 08/28/23 08:31 Dose: 85 mg Documented By: ANA Methadone HCl (Methadone Hcl 20 Mg/2 Ml Oral.Conc) 15 mg PO DAILY@1999 [facility] Last Admin: 08/27/23 19:56 Dose: 15 mg Documented By: FIOR Omeprazole (Omeprazole 20 Mg Capsule.Dr) 20 mg PO BID@0630,1630 [facility] Last Admin: 08/28/23 05:44 Dose: 20 mg Documented By: FIOR Ondansetron HCl (Ondansetron Hcl 4 Mg/2 Ml Vial) 4 mg IVPUSH Q8H PRN PRN Reason: Nausea and Vomiting Sodium Chloride (0.9 % Sodium Chloride Flush 3 Ml Syringe) 3 ml IVFLUSH QSHIFT [facility] Last Admin: 08/28/23 08:32 Dose: 3 ml Documented By: ANA Trazodone HCl (Trazodone Hcl 50 Mg Tablet) 50 mg PO BEDTIME MRX1 PRN PRN Reason: Sleep Labs 08/23/23 05:55 08/25/23 09:14 Microbiology Microbiology Results: Microbiology 08/25/23 09:14 Blood Culture - Preliminary Blood - Venous No growth after 48 hours. 08/25/23 09:14 Blood Culture - Preliminary Blood - Venous No growth after 48 hours. 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 (4) Staphylococcus aureus bacteremia: Status: Acute Plan 38F PMH IVDA presented with fevers and back pain Severe sepsis due to MSSA bacteremia from IV drug use complicated by pneumonia and possible septic facet arthritis Pending repeat cultures Continue Cefazolin (start counting 08/25/23) echo showing right sided vegetations Repeat cultures negative after 48 hours Cardio input appreciated, Antibiotics pending repeat cultures Infectious disease 4-6 weeks of IV Cefazolin Hep C and HIV to be checked, order was cancelled To Place PICC line next week Question competency PSych eval per family request; patient has capacity Opiate dependence with acute withdrawal Addiction team following, On methadone Mild hyponatremia, hypokalemia resolved UTI DC Ceftriaxone Mixed bacteria on cultures DVT prophylaxis with Lovenox Full code Reason for continued hospitalization: Bacteremia pending resolution and safe DC plan Time Spent With Patient Time: Total time managing care of this patient today ____ minutes. Quality Stroke Does the patient have a stroke diagnosis?: No VTE Prior VTE?: No VTE Risk Level:: Medical - moderate - high VTE Device Contraindication: Treatment Not Indicated VTE Drug Contraindication: N/A - Med Ordered
--- NOTE | 2023-08-28 13:09 | MHC.RECOVRN ---
This staff writer met with patient, patient admitted pneumonia. Pt was resting comfortably. Pt reports no pain, no issues/concern with MTD dose. Med Surge RN reports patient has been resting comfortable, pain well managed.
[2023-08-28 15:29] VITALS: BP 104/74; PULSE 71; RESP 18; TEMP 36; O2SAT 96
[2023-08-28 19:53] VITALS: BP 132/76; PULSE 88; RESP 18; TEMP 36.3; O2SAT 98
[2023-08-28] MEDS: methADONE HCl 20 MG/2 ML ORAL.CONC 15 MG PO (19:56)
[2023-08-29 03:46] VITALS: BP 124/80; PULSE 75; RESP 18; TEMP 36; O2SAT 95
[2023-08-29 07:19] VITALS: BP 140/81; PULSE 89; RESP 18; TEMP 37.1; O2SAT 97
--- NOTE | 2023-08-29 12:03 | HO.PM.IMPN ---
Subjective Subjective Date of Service: 08/29/23 Interval History: alert and interactive this afternoon pain under fair control Cultures growing MSSA, repeat cultures negative Patient stating she wants to leave AMA Review of Systems Review of Systems: Yes all other systems are reviewed and are negative Physical Exam Vital Signs: Vital Signs: Last Vital Signs Temp 98.8 F 08/29/23 07:19 Pulse 89 08/29/23 07:19 Resp 18 08/29/23 07:19 BP 140/81 H 08/29/23 07:19 Pulse Ox 97 08/29/23 07:19 O2 Del Method Room Air 08/29/23 07:19 BMI result Body Mass Index 28.6 Const: Other: Constitutional : Awake, interactive, not in distress Neck : Normal inspection, Supple Cardiovascular : RRR, no JVP, no lower extremity edema, systolic murmur Respiratory : good bilateral air entry, fine crackles Gastrointestinal: soft, lax, Normal bowel sounds, Non tender Skin : Warm, Dry, multiple injection jimenez Skeletal: Left hip tenderness on palpation, no erythema or warmth Neurological : Alert & oriented x3, No focal deficit Objective Data Active Medications Acetaminophen (Acetaminophen 325 Mg Tablet) 975 mg PO TID [facility] Last Admin: 08/29/23 08:17 Dose: 975 mg Documented By: JANIE Docusate Sodium (Docusate Sodium 100 Mg Capsule) 100 mg PO DAILY PRN PRN Reason: Constipation Enoxaparin Sodium (Enoxaparin Sodium 40 Mg/0.4 Ml Syringe) 40 mg SUBCUT Q24H [facility] Last Admin: 08/28/23 12:45 Dose: 40 mg Documented By: ANA Hydromorphone HCl (Hydromorphone Hcl 1 Mg/Ml Syringe) 1 mg IVPUSH Q3H PRN; Protocol PRN Reason: Pain, Severe (Pain Scale 7-10) Last Admin: 08/29/23 08:45 Dose: 1 mg Documented By: JANIE Hydromorphone HCl (Hydromorphone Hcl 2 Mg Tablet) 2 mg PO Q6H PRN PRN Reason: Pain, Severe (Pain Scale 7-10) Last Admin: 08/29/23 03:52 Dose: 2 mg Documented By: RACHNA Cefazolin Sodium/Dextrose (Ancef) 2 gm in 50 mls @ 100 mls/hr IV Q8H [facility] Last Infusion: 08/29/23 05:39 Dose: Infused Documented By: RACHNA Ibuprofen (Ibuprofen 600 Mg Tablet) 600 mg PO TIDWM [facility] Last Admin: 08/29/23 08:18 Dose: 600 mg Documented By: JANIE Lorazepam (Lorazepam 1 Mg Tablet) 1 mg PO BID PRN PRN Reason: Anxiety Last Admin: 08/28/23 02:36 Dose: 1 mg Documented By: FIOR Methadone HCl (Methadone Hcl 20 Mg/2 Ml Oral.Conc) 85 mg PO DAILY [facility] Last Admin: 08/29/23 08:17 Dose: 85 mg Documented By: JANIE Methadone HCl (Methadone Hcl 20 Mg/2 Ml Oral.Conc) 15 mg PO DAILY@1999 [facility] Last Admin: 08/28/23 19:56 Dose: 15 mg Documented By: RACHNA Omeprazole (Omeprazole 20 Mg Capsule.Dr) 20 mg PO BID@0630,1630 [facility] Last Admin: 08/29/23 05:08 Dose: 20 mg Documented By: RACHNA Ondansetron HCl (Ondansetron Hcl 4 Mg/2 Ml Vial) 4 mg IVPUSH Q8H PRN PRN Reason: Nausea and Vomiting Sodium Chloride (0.9 % Sodium Chloride Flush 3 Ml Syringe) 3 ml IVFLUSH QSHIFT [facility] Last Admin: 08/29/23 08:20 Dose: 3 ml Documented By: JANIE Trazodone HCl (Trazodone Hcl 50 Mg Tablet) 50 mg PO BEDTIME MRX1 PRN PRN Reason: Sleep Labs 08/29/23 05:29 08/29/23 05:29 Labs: Laboratory Results - last 24 hr 08/29/23 05:29 MCV 85.8 MCH 28.1 MCHC 32.7 RDW 13.2 Plt Count 269 D MPV 9.9 Absolute Nucleated RBC 0.000 Nucleated RBC % (auto) 0.0 Anion Gap 14 Estim Creat Clear Calc 121.3 Estimated GFR > 60 Random Glucose 91 Calcium 7.9 L D Assessment and Plan (1) Endocarditis of tricuspid valve: Status: Acute (2) Staphylococcus aureus bacteremia: Status: Acute Plan 38F PMH IVDA presented with fevers and back pain Severe sepsis due to MSSA bacteremia from IV drug use complicated by pneumonia and possible septic facet arthritis Pending repeat cultures Continue Cefazolin (start counting 08/25/23) echo showing right sided vegetations Repeat cultures negative after 48 hours Cardio input appreciated, Antibiotics pending repeat cultures Infectious disease 4-6 weeks of IV Cefazolin Hep C and HIV to be checked, order was cancelled To Place PICC line once facility available Explained to her the risk associated with AMA and that PO Abx are not considered as the right treatment for her condition. she understand and reports that if she leaves she needs to do that and will come back to restart treatment. Question competency PSych eval per family request; patient has capacity Opiate dependence with acute withdrawal Addiction team following, On methadone Mild hyponatremia, hypokalemia resolved UTI DC Ceftriaxone Mixed bacteria on cultures DVT prophylaxis with Lovenox Full code Reason for continued hospitalization: Bacteremia pending resolution and safe DC plan Time Spent With Patient Time: Total time managing care of this patient today ____ minutes. Quality Stroke Does the patient have a stroke diagnosis?: No VTE Prior VTE?: No VTE Risk Level:: Medical - moderate - high VTE Device Contraindication: Treatment Not Indicated VTE Drug Contraindication: N/A - Med Ordered
--- NOTE | 2023-08-29 15:10 | MHC.RECOVRN ---
This junior copywriter met with patient, patient resting in bed, tearful. Pt reports is leaving AMA at 4pm. Pt reports sister will be picking up. Harm reduction reviewed. Pt verbalized understanding. Pt reports plans to make contact with and represent to [facility] [place]. Pt reports concerned for safety of , has been unable to make contact in the past few days. Pt has significant knowledge of s/s of infection and to present to [facility] for further treatment. Last dose letter provided, pt to follow up at [facility].
--- NOTE | 2023-08-29 15:19 | PM.DS ---
DS: Providers Provider Date of Service: 08/29/23 Date of admission: 08/22/23 12:05 Primary care physician: Unknown Physician Consults: 08/22/23 12:08 Addiction Medicine Routine Consulting Provider: Addiction Covering Reason for consultation: IVDU, pt states on Methadone 100mg daily, took yesterday 08/23/23 07:17 Consult to Infectious Diseases [place]ine Consulting [place] [facility] Reason for consultation: ivda, bacteremia 08/24/23 07:48 Consult to Cardiology Routine Consulting Provider[place] [facility] Reason for consultation: Infective endocarditis with septic embolis for eval and rec. 08/25/23 07:36 Consult to Psychiatry Routine Consulting Provider: Psych Covering Reason for consultation: Competency eval to take medical decisions, request by family DS: Diagnosis Discharge Diagnosis (1) Endocarditis of tricuspid valve: Status: Acute (2) Staphylococcus aureus bacteremia: Status: Acute DS: Summary Hospital Course Hospital Course: Patient refused to stay to continue her treatment and decided to leave AMA with full understanding that this decision might affect her life in negative way that she did not finish her infection treatment as planned. She asked for an oral alternative. I explained to her the oral antibiotics are not the first line of treatment in her case and she needs the IV Antibiotics instead. LEvaquin was prescribed PO. Time Spent with Patient Time attestation: Total time managing care of this patient today ____ minutes. Discharge coordination time: Less than 30 minutes Quality: Safe Use of Opioids Does Pt have an Active Cancer Diagnosis on the Problem List?: No Quality: Stroke Does the patient have a stroke diagnosis?: No Physical Exam Vital Signs: Vital Signs: Last Vital Signs Temp 98.8 F 08/29/23 07:19 Pulse 89 08/29/23 07:19 Resp 18 08/29/23 07:19 BP 140/81 H 08/29/23 07:19 Pulse Ox 97 08/29/23 07:19 O2 Del Method Room Air 08/29/23 07:19 BMI result Body Mass Index 28.6 Const: Other: AMA DS: Data Data Completed and Pending Labs on day of discharge: Laboratory Results - last 24 hr 08/29/23 05:29 WBC 10.0 RBC 3.67 L Hgb 10.3 L Hct 31.5 L MCV 85.8 MCH 28.1 MCHC 32.7 RDW 13.2 Plt Count 269 D MPV 9.9 Absolute Nucleated RBC 0.000 Nucleated RBC % (auto) 0.0 Sodium 136 Potassium 2.8 L Chloride 101 Carbon Dioxide 24 Anion Gap 14 BUN 9 Creatinine 0.62 Estim Creat Clear Calc 121.3 Estimated GFR > 60 Random Glucose 91 Calcium 7.9 L D Preliminary micro results at discharge 08/25/23 09:14 Blood Culture - Preliminary Blood - Venous No growth after 48 hours. 08/25/23 09:14 Blood Culture - Preliminary Blood - Venous No growth after 48 hours. Discharge Plan Discharge Anticipated Discharge Date/Time: 08/29/23 15:20 Patient Disposition: Left Against Medical Advice Discharge Diagnosis: Endocarditis Staph aureus Bacteremia Referrals: Physician,Unknown J [Primary Care Provider] - 1 Week Discharge Medications: New levofloxacin 750 mg tablet 750 mg PO Q24H Qty: 28 0RF Discharge Orders: Discharge Order (Routine); Ordered 08/30/23 Ordered By: Bibi Rm Care Plan Goals: . Health Concerns: . Plan of Treatment: . Assessment: . Discharge Date/Time: 08/29/23 18:20
--- NOTE | 2023-08-29 16:12 | PC.NURSE ---
Pt leaving AMA. Dr Rm and this RN educated pt about need for IV antibiotics. Pt states she understands and wants to leave anyway. Physical prescription for PO antibiotics given to patient. IV removed. clinical research monitor removed.
== END 2023-08-29 18:20 | disposition left against medical advice (07) | DRG 720 ==
LOC: HO.ED 11:04 → HO.EDOVER 12:38 → HO.S3 15:52
PROVIDERS: Emergency Medicine; Internal Medicine; Physician Assistant Medical; Admitting Provider Student in an Organized Health Care Education/Training Program; Emergency Provider Emergency Medicine; Visit Provider Student in an Organized Health Care Education/Training Program
DX: A41.01 Sepsis due to Methicillin susceptible Staphylococcus aureus (principal); I33.0 Acute and subacute infective endocarditis; J18.9 Pneumonia, unspecified organism; E87.1 Hypo-osmolality and hyponatremia; M00.08 Staphylococcal arthritis, vertebrae; R65.20 Severe sepsis without septic shock; E87.6 Hypokalemia; F11.23 Opioid dependence with withdrawal; N39.0 Urinary tract infection, site not specified; Z59.02 Unsheltered homelessness; Z20.822 Contact with and (suspected) exposure to COVID-19
CPT/HCPCS: 36415; 71045; 72132; 72158; 80048; 80076; 80202; 80307; 81001; 82565; 83605; 83735; 84702; 85025; 85027; 85652; 86140; 86704; 86706; 86803; 87040; 87077; 87086; 87147; 87186; 87205; 87340; 87389; 87502; 87635; 93005; 93306; 99285; A9585; J0690; J0696; J1170; J1650; J1885; J2060; J3370; J3371; Q9957

== ENCOUNTER 2023-08-22 12:05 | Outpatient (BNV) | payer OTHER, SELFPAY | END 2023-08-23 07:00 | PROVIDERS: Admitting Provider Student in an Organized Health Care Education/Training Program; Emergency Provider Emergency Medicine; Visit Provider Internal Medicine | DX: I36.1 Nonrheumatic tricuspid (valve) insufficiency (principal) | CPT/HCPCS: 93306 ==

== ENCOUNTER → 2023-08-22 12:05 | Outpatient (BNV) | payer OTHER, SELFPAY | PROVIDERS: Admitting Provider Student in an Organized Health Care Education/Training Program; Emergency Provider Emergency Medicine; Visit Provider Internal Medicine | DX: F19.10 Other psychoactive substance abuse, uncomplicated (principal); I07.9 Rheumatic tricuspid valve disease, unspecified; B95.61 Methicillin susceptible Staphylococcus aureus infection as the cause of diseases classified elsewhere; F11.90 Opioid use, unspecified, uncomplicated | CPT/HCPCS: 99222; 99232 ==

== ENCOUNTER → 2023-08-22 12:05 | Outpatient (BNV) | payer OTHER, SELFPAY | PROVIDERS: Admitting Provider Student in an Organized Health Care Education/Training Program; Emergency Provider Emergency Medicine; Visit Provider Student in an Organized Health Care Education/Training Program | DX: I07.9 Rheumatic tricuspid valve disease, unspecified (principal); R78.81 Bacteremia; B95.61 Methicillin susceptible Staphylococcus aureus infection as the cause of diseases classified elsewhere | CPT/HCPCS: 99223; 99232; 99233; 99239; 99499 ==

== ENCOUNTER → 2023-08-22 12:05 | Outpatient (BNV) | payer OTHER, SELFPAY | PROVIDERS: Admitting Provider Student in an Organized Health Care Education/Training Program; Emergency Provider Emergency Medicine; Visit Provider Internal Medicine | DX: R78.81 Bacteremia (principal); B95.61 Methicillin susceptible Staphylococcus aureus infection as the cause of diseases classified elsewhere; I07.9 Rheumatic tricuspid valve disease, unspecified | CPT/HCPCS: 99223 ==

== ENCOUNTER → 2023-08-22 12:05 | Outpatient (BNV) | payer OTHER, SELFPAY | PROVIDERS: Admitting Provider Student in an Organized Health Care Education/Training Program; Emergency Provider Emergency Medicine; Visit Provider Nurse Practitioner Psychiatric/Mental Health | DX: F11.90 Opioid use, unspecified, uncomplicated (principal); I07.9 Rheumatic tricuspid valve disease, unspecified | CPT/HCPCS: 99222; 99232; 99499 ==

== ENCOUNTER 2025-08-04 10:31 | Emergency (ER) | payer OTHER, SELFPAY ==
[2025-08-04 10:35] VITALS: BP 129/86; PULSE 87; RESP 16; TEMP 36.2; O2SAT 97; BMI 27.5
--- NOTE | 2025-08-04 10:52 | ED_ITS ---
HPI - General Adult General Chief complaint: General Medical Stated complaint: missed methadone dose Time Seen by Provider: 08/04/25 12:04 Source: patient Mode of arrival: ambulatory Limitations: no limitations History of Present Illness ED Provider: Ana Amaral PA-C HPI narrative: Patient is a 39 year old assigned female at with a history of methadone use presenting to the emergency department today for her methadone dose. Patient states that she was in [facility] on 08/02/2025 and given 80mg of Methadone. Patient states that she is due for her dose today and is going to establish with a new clinic tomorrow (08/05/2025). Patient states that she has also felt generally unwell with congestion and is concerned she was exposed to COVID. Patient denies any other complaints at this time. Related Data Home Medications ?Medication ?Instructions ?Recorded ?Confirmed methadone 10 mg/mL oral 80 mg PO DAILY 08/04/2507/22 concentrate (Methadone Intensol) Previous Rx's ?Medication ?Instructions ?Recorded levofloxacin 750 mg tablet 750 mg PO Q24H #28 tabs 08/13 Allergies Allergy/AdvReac Type Severity Reaction Status Date / Time No Known Allergies Allergy Verified 08/04/25 10:37 Review of Systems Constitutional: Constitutional: Reports as per HPI Eyes: Eyes: Reports as per HPI ENT: Reports as per HPI Cardiovascular: Cardiovascular: Reports as per HPI Respiratory: Respiratory: Reports as per HPI Gastrointestinal: Gastrointestinal: Reports as per HPI Genitourinary: Genitourinary: Reports as per HPI Musculoskeletal: Musculoskeletal: Reports as per HPI Integumentary/Breasts: Skin/Breast: Reports as per HPI Neurologic: Reports as per HPI Psychiatric: Psychiatric: Reports as per HPI Endocrine: Endocrine: Reports as per HPI Hematologic/Lymphatic: Hematologic/Lymphatic: Reports as per HPI Allergic/Immunologic: Allergic/Immunologic: Reports as per HPI PMFSH Past Medical History Attestation statement: The following information was validated with the patient. Source: old records reviewed and nursing notes reviewed Medical History Acute opioid withdrawal Drug abuse Endocarditis of tricuspid valve Opioid use disorder Pneumonia Staphylococcus aureus bacteremia Scabies Social History Social History Household Members: Spouse Housing: Homeless Do you presently have visiting nurse or other home services: No Alcohol intake: never Patient Tobacco Use Status: Never used Tobacco Substance Use Type: Crack/Cocaine and Heroin Advance Directives: Yes Advance Directives Information Provided: Yes Advance Directives on File: Yes Advance Directives Date on File: 08/31/23 service: No Physical Exam ED Vital Signs: Vital Signs - 24 hr 08/04/25 10:35 08/04/25 12:45 Temperature 97.2 F 97.2 F Pulse Rate 87 87 Respiratory Rate 16 16 Blood Pressure 129/86 129/86 Pulse Oximetry 97 97 Oxygen Delivery Method Room Air Room Air BMI result Body Mass Index 27.5 Const General: cooperative, no acute distress, alert and awake Nutritional Appearance: well nourished Orientation/consciousness: patient oriented x3 HENMT Head: Yes normal to inspection and Yes atraumatic Ears: hearing grossly normal bilaterally and external ears normal General nose exam: Normal external nose present, no nasal discharge noted and no epistaxis Face and sinus: Yes normal facial exam, No abrasion and No laceration Mouth: Normal oral and palatal mucosa present, no drooling and no muffled voice Eyes General: appearance normal, both eyes and all related structures Periorbital: periorbital findings normal Eyelids: Yes eyelids normal Conjunctivae: conjunctivae normal Pupils: Equal, round and reactive pupils present EOM: EOMs intact bilaterally Neck Neck: Yes normal visual inspection and Yes full ROM Resp Effort & Inspection: normal respiratory effort and able to speak in complete sentences Neuro General: patient oriented x3, moves all extremities and CN's II-XI intact bilaterally Cranial nerves: Yes Equal, round and reactive pupils present Cognition (Neuro): normal cognition Extrem General: Yes normal to inspection, Yes full ROM and Yes capillary refill normal Psych Appearance: grossly normal Mental Status: mental status grossly normal Affect: normal affect Attitude: cooperative Thought process: Normal thought process present Thought content: Normal thought content present Insight: Good insight present (Psych) Course Course Course Narrative: Rapid medical examination performed in triage by Ana Amaral PA-C. Patient is a 39 year old assigned female at presenting to the emergency department for a methadone dose. Detailed physical exam and review of systems are deferred to the oil deliverer. Patient placed back in the waiting room pending room availability. Medications Administered Discontinued Medications Generic Name Dose Route Start Last Admin Trade Name Freq PRN Reason Stop Dose Admin Methadone HCl 80 mg 08/04/25 12:05 08/04/25 12:30 Methadone Hcl 20 Mg/2 Ml Oral.Conc PO 08/04/25 12:06 80 mg ONCE ONE Administration Medical Decision Making Medical Decision Making [facility] Narrative: Patient is a 39 year old assigned female at with a history of methadone use presenting to the emergency department today for her methadone dose. Patient's physical exam was unremarkable. I explained my physical exam findings to the patient. I answered all questions asked by the patient. Patient received her methadone dose, without incident. I stressed the importance of the patient taking her medication as directed (either prescribed or as the over the counter packaging recommends). I stressed the importance of the patient following up with her primary care provider and a methadone clinic. I stressed the importance of the patient returning to the emergency department immediately if her symptoms were to worsen or if she were to develop any dizziness, shortness of breath, difficulty breathing, chest pain, blurry vision, loss of vision, nausea, vomiting, abdominal pain, fever, chills, back pain, or any other complaints. Patient verbalized agreement and understanding with this treatment plan and discharge. Differential Diagnosis Differential Diagnoses: The differential diagnosis associated with the presentation includes Methadone use Methadone dosing Viral illness Admission/Observation Consideration of admission/observation: Escalation of care including admission/observation considered Patient would have been admitted to the hospital had her work up had any findings where hospital admission was appropriate and her clinical presentation warranted hospital admission. Lab Data [facility] Lab Attestation statement: I reviewed the patient's lab results. My interpretation of these studies and their corresponding values is that they are grossly normal. Labs: Lab Results 08/04/25 Range/Units 10:47 COVID-19 (RENATO) Negative (Negative) COVID-19 Clin Com See Note Influenza Type A (ARIAN) Negative (Negative) Influenza Type B (ARIAN) Negative (Negative) Influenza A & B Note See Note Discharge Plan Discharge Clinical Impression: Methadone dependence, Viral illness Patient Disposition: Home, Self-Care Instructions: Methadone (By mouth), Viral Syndrome (ED) Additional Instructions: Please make sure to establish with your methadone clinic. IF you are prescribed home medications and/or you are taking over the counter medications at home - it is very important you continue to do so as prescribed / directed unless told otherwise. Follow up with a primary care provider. Return to the emergency department immediately if your symptoms worsen or if you develop any numbness, tingling, dizziness, shortness of breath, difficulty breathing, chest pain, blurry vision, loss of vision, nausea, vomiting, abdominal pain, fever, chills, back pain, or any other complaints. If you do not have a primary care provider - call any of the below numbers to establish and follow up with a primary care provider. [facility] Primary Care ([place]) [phone] [place] [address], [address] [facility] Primary Care ([address] [place]) [phone] [place] [address], [address] [facility], [address] [facility] Primary Care ([address] [place]) [phone] [place] [address], [address] [facility], [address] [facility] Primary Care ([place]) [phone] [place] [address] [address] [facility], [address] [facility] Family Medicine [phone] [place] [address], [address] Please see the information below about our Patient Portal. If you are not yet enrolled in the [facility] Patient Portal, you will receive an enrollment email invitation following your visit to any [facility] setting. You may also self-enroll in the Patient Portal by visiting our website: [email or web address] The following information is required to access the Patient Portal: - Your [facility] Medical Record Number - Your personal home email address (must match what is in your electronic medical record, Registration staff can assist with this) - Name - Date of Capabilities of the Patient Portal: - Message some providers - View upcoming appointments - Access your health summary, medical history, and visit history - View current conditions and allergies - View procedure and lab results - View your medications, including guidelines, side effects, and precautions - Complete pre-appointment questionnaires requested by your provider - Ready summary reports of your office visits and procedures To access the Patient Portal Mobile [employer], follow these directions: - Search [employer] in the [employer] Store or [employer] Store - Download the Makayla - Search for [facility] - Enter your login/password Prescriptions: No Action methadone [Methadone Intensol] 10 mg/mL Concentrate 80 mg PO DAILY levofloxacin 750 mg tablet 750 mg PO Q24H Qty: 28 0RF Interventions: ED Discharge Assessment Last Done: 08/04/25 12:45 Discharge Date/Time: 08/04/25 12:46 Print Language: Salvadorean
[2025-08-04 11:10] LABS: IDNOW Serial# 58CA691E
[2025-08-04 11:11] LABS: COVID-19 Test Negative (Negative); IDNOW Serial# 55D5AD1C; Influenza B2 Negative (Negative)
--- NOTE | 2025-08-04 12:25 | HE.PHANOTE ---
RE: METHADONE DOSING Ana Amaral verified with the MAR from [facility] that last dose of methadone 80 mg was given on tuesday08/02/25.
[2025-08-04] MEDS: methADONE HCl 20 MG/2 ML ORAL.CONC 80 MG PO (12:30)
[2025-08-04 12:45] VITALS: BP 129/86; PULSE 87; RESP 16; TEMP 36.2; O2SAT 97
== END 2025-08-04 12:46 | disposition home or self-care (01) ==
PROVIDERS: Emergency Provider Emergency Medicine
DX: F11.20 Opioid dependence, uncomplicated (principal); B34.9 Viral infection, unspecified; Z79.899 Other long term (current) drug therapy; Z03.818 Encounter for observation for suspected exposure to other biological agents ruled out; Z11.52 Encounter for screening for COVID-19
CPT/HCPCS: 87502; 87635; 99282; 99283